=== PATIENT | female | born 1960 | race Caucasian/White ===

== ENCOUNTER 2017-06-02 11:04 | Emergency (ER) | payer SELFPAY ==
[2017-06-02 11:52] LABS: #Eosinphils 0.2 thou/uL (0.0-0.7); #Lymphocytes 1.8 thou/uL (1.20-3.40); #Monocytes 0.5 thou/uL (0.11-0.59); #Neutrophils 2.7 thou/uL (1.40-6.50); %Basophils 0.8 % (0.0-1.0); %Eosinophils 3.5 % (0.0-10.0); %Neutrophils 51.7 % (42.0-75.0); Hemoglobin 13.4 g/dL (12.0-16.0); Mean Corpuscular HGB CONC 35.5 g/dL (32.0-36.0); Mean Corpuscular Volume 90.3 fl (81.0-99.0); Mean Platelet Volume 7.5 fL (7.4-10.4); Platelet Count 242 thou/uL (130-400); RBC Distribution Width 11.3 % (11.5-14.5); Red Blood Cell (RBC) Count 4.18 mill/uL (4.20-5.40); White Blood Cell (WBC) Count 5.3 thou/uL (4.8-10.8)
[2017-06-02 12:07] LABS: ALT (SGPT) 33 U/L (8-55); AST (SGOT) 42 U/L (5-34); Alkaline Phosphatase 148 U/L (40-150); Anion Gap 12 mmol/L (10-20); BUN (Urea Nitrogen) 19 mg/dL (9.8-20.1); Bilirubin, Total 0.3 mg/dL (0.2-1.2); CK (CPK) 47 U/L (29-168); Calc. Creatinine Clearance 0 mL/min (70-130); Carbon Dioxide 26 mmol/L (22-29); Chloride 105 mmol/L (98-107); Estimated GFR-MDRD 55; Globulin 3.1 g/dL (2.4-3.5); Glucose 112 mg/dL (70-105); Potassium 4.1 mmol/L (3.5-5.1); Protein, Total 7.1 g/dL (6.0-8.3); Sodium 139 mmol/L (136-145)
[2017-06-02 12:11] LABS: CKMB 0.5 ng/mL (0-6.6); Troponin I Less than 0.010 ng/mL (< 0.028)
--- NOTE | 2017-06-02 12:33 | CT ---
CT HEAD NONCONTRAST: HISTORY: Falls. Weakness. Altered mental status. COMPARISON: 02/23/17. FINDINGS: There is no evidence of acute intracranial hemorrhage or infarct. The ventricles appear normal in si ze, shape, and position. There is no mass effect or shift of midline structures. Visualized paranas al sinuses remain well aerated. IMPRESSION: No acute intracranial abnormalities are demonstrated on noncontrast CT head. POS: [facility]
--- NOTE | 2017-06-02 12:42 | RAD ---
SINGLE VIEW OF THE CHEST: COMPARISON: 10/13/16. HISTORY: Multiple falls with chest pain and weakness. FINDINGS: Single view of the chest shows a normal sized cardiomediastinal silhouette. There is no evidence of c onsolidation, mass, or pleural effusion. The bones are unremarkable. IMPRESSION: No evidence of acute cardiopulmonary disease. POS: [facility]
[2017-06-02 14:02] LABS: Bilirubin Negative (Negative); Blood, Urine Negative (Negative); Clarity CLEAR (Clear); Glucose, Urine (Dipstick) Negative (Negative); Leukocyte Trace (Negative); Nitrite Negative (Negative); Protein, Urine (Dipstick) Negative (Neg-Trace); Specific Gravity, Urine 1.013 (1.002-1.036); Urobilinogen 0.2 mg/dL (0.2-1.0)
[2017-06-02 14:04] LABS: Bacteria/HPF None Seen HPF (None Seen); Hyaline Casts/LPF 0-3 HYALINE CAST LPF (0-3 Hyaline); Pathc Cast-AUWi Flag 0.27 (0-2.49); Squamous Epithelial 0-3 HPF (0-3); WBC/HPF 0-3 HPF (0-3)
[2017-06-02 14:12] LABS: Amphetamine Not Detected (NotDetected); Barbiturates Screen Not Detected (NotDetected); Benzodiazepine Screen Detected (NotDetected); Cocaine Metabolite Screen Not Detected (NotDetected); Medtox Control Line Valid? VALID (VALID); Medtox Reader # READER 1; Methadone Not Detected (NotDetected); Methamphetamine Not Detected (NotDetected); Opiate Screen Not Detected (NotDetected); Oxycodone Screen Not Detected (NotDetected); Phencyclidine (PCP) Not Detected (NotDetected); THC/Cannabinoid Screen Not Detected (NotDetected); Tricyclic Screen Not Detected (NotDetected)
[2017-06-02] MEDS ORDERED: Ketorolac Tromethamine 30 MG/ML VIAL ONE (15:18)
--- NOTE | 2017-06-08 18:04 | EKG ---
Test Reason : Blood Pressure : / mmHG Vent. Rate : 063 BPM Atrial Rate : 063 BPM P-R Int : 142 ms QRS Dur : 086 ms QT Int : 444 ms P-R-T Axes : 039 057 035 degrees QTc Int : 454 ms Normal sinus rhythm Nonspecific T wave abnormality Abnormal ECG Confirmed by MARCIA WORKMAN, ALBA ([id number]), newspaper photo editor SHARAD RODRIGEZ ([id number]) on 06/08/2017 6:03:33 PM Referred By: Confirmed By:ALBA KENNEDY MD
== END 2017-06-02 15:33 | disposition home or self-care (01) ==
LOC: ERS 11:04
DX: M54.5 Low back pain (principal); G89.29 Other chronic pain; M41.9 Scoliosis, unspecified; F41.9 Anxiety disorder, unspecified; F32.9 Major depressive disorder, single episode, unspecified; F20.9 Schizophrenia, unspecified
CPT/HCPCS: 70450; 71045; 80053; 80306; 81003; 81015; 82553; 84484; 85025; 93005; 94760; 96374; J1885

== ENCOUNTER 2017-11-07 14:31 | Emergency (ER) | payer SELFPAY ==
[2017-11-07 15:06] LABS: #Basophils 0.1 thou/uL (0.0-0.2); #Eosinphils 0.2 thou/uL (0.0-0.7); #Lymphocytes 2.5 thou/uL (1.20-3.40); #Monocytes 0.6 thou/uL (0.11-0.59); #Neutrophils 3.2 thou/uL (1.40-6.50); %Eosinophils 2.7 % (0.0-10.0); %Lymphocytes 37.7 % (21.0-51.0); %Monocytes 9.5 % (0.0-10.0); %Neutrophils 49.1 % (42.0-75.0); Hemoglobin 13.7 g/dL (12.0-16.0); Mean Corpuscular HGB CONC 35.6 g/dL (32.0-36.0); Mean Corpuscular Hemoglobin 31.5 pg (27.0-31.0); Mean Corpuscular Volume 88.6 fL (78.0-98.0); Mean Platelet Volume 6.8 fL (7.4-10.4); Platelet Count 261 thou/uL (130-400); RBC Distribution Width 11.7 % (11.5-14.5); Red Blood Cell (RBC) Count 4.34 mill/uL (4.20-5.40); White Blood Cell (WBC) Count 6.6 thou/uL (4.8-10.8)
[2017-11-07] MEDS ORDERED: Nitroglycerin 0.4 MG TAB (25 Tab Bottle) ONE (15:24)
[2017-11-07 15:27] LABS: ALT (SGPT) 31 U/L (8-55); AST (SGOT) 36 U/L (5-34); Albumin 4.5 g/dL (3.5-5.0); Alkaline Phosphatase 149 U/L (40-150); Anion Gap 12 mmol/L (10-20); BUN (Urea Nitrogen) 14 mg/dL (9.8-20.1); Bilirubin, Total 0.3 mg/dL (0.2-1.2); CK (CPK) 70 U/L (29-168); Calc. Creatinine Clearance 0 mL/min (70-130); Calcium 9.9 mg/dL (7.8-10.44); Carbon Dioxide 27 mmol/L (22-29); Chloride 102 mmol/L (98-107); Estimated GFR-MDRD 56; Globulin 2.9 g/dL (2.4-3.5); Glucose 89 mg/dL (70-105); Lipase 60 U/L (8-78); Protein, Total 7.4 g/dL (6.0-8.3); Sodium 137 mmol/L (136-145)
--- NOTE | 2017-11-07 15:31 | RAD ---
CHEST ONE VIEW: History: Chest pain. Comparison: 06-02-17 FINDINGS: Lungs are clear. No pneumothorax or effusion. Cardiac silhouette and mediastinal contours are within normal limits. IMPRESSION: No acute intrathoracic abnormality. POS: [facility]
[2017-11-07] MEDS ORDERED: Lorazepam 2 MG/ML VIAL ONE (15:52)
[2017-11-07 17:18] LABS: CKMB 0.7 ng/mL (0-6.6); Troponin I Less than 0.010 ng/mL (< 0.028)
[2017-11-07] MEDS ORDERED: Fentanyl 100 MCG/2 ML VIAL ONE (17:27)
[2017-11-07 19:57] LABS: Troponin I Less than 0.010 ng/mL (< 0.028)
[2017-11-07] MEDS ORDERED: Ketorolac Tromethamine 30 MG/ML VIAL ONE (20:12)
--- NOTE | 2017-11-09 11:57 | EKG ---
Test Reason : Blood Pressure : / mmHG Vent. Rate : 068 BPM Atrial Rate : 068 BPM P-R Int : 134 ms QRS Dur : 086 ms QT Int : 436 ms P-R-T Axes : 004 042 015 degrees QTc Int : 463 ms Normal sinus rhythm Septal infarct , age undetermined Abnormal ECG Confirmed by PEDRO PAULSON ([id number]), editor magazine OLIVIA COSTA ([id number]) on 11/09/2017 11:57:21 AM Referred By: Confirmed By:PEDRO PAULSON
== END 2017-11-07 20:18 | disposition home or self-care (01) ==
LOC: ERS 14:31
DX: R07.89 Other chest pain (principal); R51 Headache; F41.9 Anxiety disorder, unspecified; F32.9 Major depressive disorder, single episode, unspecified; Z79.899 Other long term (current) drug therapy
CPT/HCPCS: 36415; 71045; 80053; 82550; 82553; 83690; 83880; 84484; 85025; 93005; 96361; 96374; 96375; J1885; J2060; J3010

== ENCOUNTER 2017-12-10 10:17 | Inpatient (IN) | payer SELFPAY ==
[2017-12-10 10:58] LABS: #Lymphocytes 1.3 thou/uL (1.20-3.40); #Monocytes 0.9 thou/uL (0.11-0.59); #Neutrophils 8.7 thou/uL (1.40-6.50); %Basophils 0.1 % (0.0-1.0); %Lymphocytes 11.9 % (21.0-51.0); %Monocytes 8.3 % (0.0-10.0); %Neutrophils 79.7 % (42.0-75.0); Hemoglobin 12.3 g/dL (12.0-16.0); Mean Corpuscular HGB CONC 35.8 g/dL (32.0-36.0); Mean Corpuscular Hemoglobin 30.8 pg (27.0-31.0); Mean Platelet Volume 6.3 fL (7.4-10.4); Platelet Count 350 thou/uL (130-400); RBC Distribution Width 11.4 % (11.5-14.5); Red Blood Cell (RBC) Count 3.99 mill/uL (4.20-5.40); White Blood Cell (WBC) Count 10.9 thou/uL (4.8-10.8)
--- NOTE | 2017-12-10 11:14 | RAD ---
PORTABLE CHEST 1 VIEW: Date: 12/10/17 Time: 1010 hours HISTORY: Chest pain. FINDINGS: Comparison made with exam of 11/07/17. The heart size is normal. The lungs are expanded without focal areas of consolidation, pneumothoraces , or pleural effusions. IMPRESSION: No radiographic evidence of acute cardiopulmonary process. POS: [facility]
[2017-12-10 11:20] LABS: ALT (SGPT) 21 U/L (8-55); AST (SGOT) 29 U/L (5-34); Albumin 4.4 g/dL (3.5-5.0); Alkaline Phosphatase 116 U/L (40-150); Anion Gap 18 mmol/L (10-20); BUN (Urea Nitrogen) 10 mg/dL (9.8-20.1); Bilirubin, Total 0.8 mg/dL (0.2-1.2); CK (CPK) 531 U/L (29-168); Calc. Creatinine Clearance 0 mL/min (70-130); Calcium 9.2 mg/dL (7.8-10.44); Carbon Dioxide 17 mmol/L (22-29); Chloride 84 mmol/L (98-107); Estimated GFR-MDRD 82; Globulin 2.7 g/dL (2.4-3.5); Glucose 130 mg/dL (70-105); Lipase 28 U/L (8-78); Potassium 3.7 mmol/L (3.5-5.1); Protein, Total 7.1 g/dL (6.0-8.3)
[2017-12-10 11:28] LABS: CKMB 9.9 ng/mL (0-6.6); Sodium 115 mmol/L (136-145)
[2017-12-10 11:50] LABS: Troponin I 0.014 ng/mL (< 0.028)
[2017-12-10] MEDS ORDERED: Guaifenesin DM 100-10/5 ML UDCUP PO PRN (14:29)
[2017-12-10] MEDS ORDERED: Sodium Chloride 0.9% 1,000 ML IV SCH (14:29)
[2017-12-10 14:30] LABS: Osmolality, Serum 238 mOsm/kg (280-295)
[2017-12-10 15:26] LABS: Troponin I 0.041 ng/mL (< 0.028)
[2017-12-10 16:03] LABS: Anion Gap 21 mmol/L (10-20); BUN (Urea Nitrogen) 10 mg/dL (9.8-20.1); Calc. Creatinine Clearance 0 mL/min (70-130); Calcium 9.5 mg/dL (7.8-10.44); Carbon Dioxide 16 mmol/L (22-29); Chloride 85 mmol/L (98-107); Estimated GFR-MDRD 79; Glucose 130 mg/dL (70-105); Magnesium 1.4 mg/dL (1.6-2.6); Potassium 3.7 mmol/L (3.5-5.1)
[2017-12-10 16:35] LABS: Sodium 118 mmol/L (136-145)
[2017-12-10 17:25] VITALS: BMI 27.2
[2017-12-10 18:30] LABS: Troponin I 0.037 ng/mL (< 0.028)
[2017-12-10 18:32] LABS: Anion Gap 19 mmol/L (10-20); BUN (Urea Nitrogen) 11 mg/dL (9.8-20.1); Calc. Creatinine Clearance 75 mL/min (70-130); Calcium 9.6 mg/dL (7.8-10.44); Carbon Dioxide 18 mmol/L (22-29); Chloride 86 mmol/L (98-107); Estimated GFR-MDRD 75; Glucose 120 mg/dL (70-105); Potassium 3.8 mmol/L (3.5-5.1)
[2017-12-10 18:39] LABS: Sodium 119 mmol/L (136-145)
--- NOTE | 2017-12-10 18:47 | HP ---
REASON FOR ADMISSION: Hyponatremia. HISTORY OF PRESENT ILLNESS: The patient gives history of going to the emergency room on Saturday for complaints of chest pain and likely bronchitis. She was given a shot of steroids, after which patient went home and was not herself. This was corroborated by her who is at bedside. She was not sleeping well and was waking up every hour and pacing around. She also started to feel jittery and shaky. They thought this will get better, but as this got worse and worse, the patient was brought to the emergency room. She also complains of having watery diarrhea 4-5 times a day from the last 2 days. Patient also mentions that she has been drinking a lot of water nearly 3 liters of water at home. She has loss of appetite and is not eating solid food, but just drinking water. She has felt nauseous, but has not thrown up. She also has generalized body aches. Here in the ER, she is jittery and trying to pace herself on the bed. The patient states she has not overdosed on any medication. She feels stressed out. She was in fact hospitalized on 3 or 4 occasions before for severe depression per patient. The patient is also cutting down on clonazepam and is currently on 1 mg twice a day. PAST MEDICAL AND SURGICAL HISTORY: History of depression, questionable seizures likely due to clonazepam withdrawal, history of scoliosis, hysterectomy , appendectomy, prior hospitalization for depression, peripheral neuropathy. CURRENT MEDICATIONS: The patient is on citalopram 40 mg daily, clonazepam 1 mg twice daily, gabapentin 600 mg twice daily. ALLERGIES: No known drug allergies. PERSONAL HISTORY: Does not abuse alcohol or drugs. No history of smoking. FAMILY HISTORY: Mother at the age of 76 years. She has had history of breast cancer. Father at the age of 83 years. He has had history of coronary artery disease. CODE STATUS: FULL. Power of admitted attorneys is her . REVIEW OF SYSTEMS: The following complete review of systems was negative, unless otherwise mentioned in the HPI or below: Constitutional: Weight loss or gain, ability to conduct usual activities. Skin: Rash, itching. Eyes: Double vision, pain. ENT/Mouth: Nose bleeding, neck stiffness, pain, tenderness. Cardiovascular: Palpitations, dyspnea on exertion, orthopnea. Respiratory: Shortness of breath, wheezing, cough, hemoptysis, fever or night sweats. Gastrointestinal: Poor appetite, abdominal pain, heartburn, nausea, vomiting, constipation, or diarrhea. Genitourinary: Urgency, frequency, dysuria, nocturia. Musculoskeletal: Pain, swelling. Neurologic/Psychiatric: Anxiety, depression. Allergy/Immunologic: Skin rash, bleeding tendency. PHYSICAL EXAMINATION: GENERAL: The patient is a 57-year-old female who is currently jittery and pacing. She responds well to verbal questions. VITAL SIGNS: Blood pressure 160/74, pulse 80 per minute, respiratory rate 18 per minute, temperature 98.4 degrees Fahrenheit, saturating 100% on room air. NECK: Supple, no elevated JVD. HEENT: Extraocular muscles intact. Pupils reacting to light. There is chemosis plus. Oral cavity mucous membranes are dry. No exudates or congestion. CARDIOVASCULAR SYSTEM: S1, S2 heard. Regular rhythm. RESPIRATORY SYSTEM: Air entry 2+ bilateral. No rales or rhonchi. ABDOMEN: Soft, bowel sounds heard. No tenderness, rigidity or guarding. EXTREMITIES: No peripheral edema or calf tenderness. VASCULAR SYSTEM: Peripheral pulses 1+ bilateral, no ischemic ulcerations or gangrene. CENTRAL NERVOUS SYSTEM: No gross focal deficits noted. The patient is jittery and shaking. The patient likely has some mild extrapyramidal symptoms including non-purposeful movement of upper and lower extremities at times. PSYCHIATRIC SYSTEM: No obvious hallucinations or delusions. She is responding well to verbal questions. LABORATORY AND X-RAY FINDINGS: EKG done shows normal sinus rhythm at 77 beats per minute. White count of 10, H&H 12 and 34, platelet count is 350, MCV is 86 with 76% neutrophils. Sodium 115, serum bicarbonate 17, BUN 10, creatinine 0.7 , serum glucose 130, serum osmolality is 238. Uric acid is less than 2, calcium 9.2. Liver enzymes within normal limits. CK level 531. CK-MB 9.9, troponin I first set is 0.014, second set is 0.04, albumin is 4.4, lipase is 28. Serum stat cortisol levels are 38.4. Chest x-ray done shows no acute cardiopulmonary abnormalities. CLINICAL IMPRESSION AND PLAN: The patient will be admitted to [facility] for severe hyponatremia with neurologic symptoms at present. We will continue her clonazepam as before to avoid withdrawal seizures. She will be on normal saline at 70 mL per hour. We will await urine osmolality and stat TSH levels as well. She has got mild rhabdomyolysis, likely due to pacing around. I have consulted Dr. Kerr for Nephrology as well. Patient has mild demand ischemia due to her current severe hyponatremia. Based on further workup, the patient likely will need 3% sodium chloride and we will continue to closely monitor her with slow correction up to 8 mEq/day. It is unclear if patient has underlying psychiatric issue that is causing current symptoms with mild extrapyramidal symptoms. She is not sure if she is taking trazodone, but for sure she is taking citalopram. Patient is not suicidal or homicidal at present. She says she is stressed out and is depressed as well at present. RODRIGO
[2017-12-10] MEDS ORDERED: Magnesium Sulfate 1 GM/2 ML VIAL IM SCH (19:30)
[2017-12-10 20:10] LABS: Free T4 (Free Thyroxine) 1.52 ng/dL (0.70-1.48)
[2017-12-10] MEDS: clonazePAM 1 MG TAB PO SCH (20:20)
[2017-12-10] MEDS: Famotidine 20 MG TAB PO SCH (20:20)
--- NOTE | 2017-12-10 20:56 | CON ---
DATE OF CONSULTATION: 12/10/2017 TIME OF CONSULTATION: 02:00 p.m. REASON FOR CONSULTATION: Hyponatremia. HISTORY OF PRESENT ILLNESS: This is a 57-year-old female with a history of psychiatric disorder, who presented to the hospital and was noted to have hyponatremia. The patient has had some shaking for the last couple of days. The patient is taking long-term clonazepam and has had diarrhea. The patie nt denies headache, numbness, tingling or weakness. The patient's sodium at 11:00 a.m. was 115, whic h itself increased at the time of examination to 118. The patient denies headache, syncope or seizur e. PAST MEDICAL HISTORY: Significant for hypertension, seizure, clonazepam withdrawal, scoliosis, hyste rectomy, appendectomy, hospitalization, peripheral neuropathy. HOME MEDICATIONS: List reviewed. HOSPITAL MEDICATIONS: Reviewed. ALLERGIES: Reviewed. REVIEW OF SYSTEMS: A 15-point review of systems was performed and negative except positives noted ab ove. PHYSICAL EXAMINATION: GENERAL: The patient is awake and alert. VITAL SIGNS: Afebrile, pulse 75, breathing at 16, blood pressure 160/74. GENERAL APPEARANCE AND MENTAL STATUS: Fair. HEAD/NECK: Normocephalic. Atraumatic. EYES: EOMI. No deformity. EARS: Clear. No ulcers. NOSE: Intact. No lesions. MOUTH: Clear. No discharge. THROAT: Clear. No exudate. LUNGS: Clear. No crackles. CARDIAC: S1, S2. No rub. ABDOMEN: Benign. BS+. GENITALIA/RECTUM: Almeida absent. BACK/EXTREMITIES: Edema 0+ Ulcer-. NEUROLOGICAL: Alert and motor intact. SKIN: Rash- Bruise-. LYMPHATICS: Edema- Ulcer-. LABORATORY DATA: Sodium 119, serum osmolality 238. Third generation TSH is 0.19. Bicarbonate is 18 . ASSESSMENT AND RECOMMENDATIONS: 1. Hyponatremia acute with excessive fluid intake. I will not correct the sodium more than 10 mEq. The patient has chronic shaking disorder and there is conflicting history per . If the sodiu m does not improve, then we will consider hypertonic saline. 2. Hypokalemia, stable. 3. Metabolic acidosis. I would recommend a blood gas be obtained. Overall, prognosis is poor.
[2017-12-10 21:08] LABS: Bilirubin Negative (Negative); Blood, Urine Negative (Negative); Clarity CLEAR (Clear); Glucose, Urine (Dipstick) Negative (Negative); Leukocyte Trace (Negative); Nitrite Negative (Negative); Protein, Urine (Dipstick) Trace mg/dL (Neg-Trace); Urobilinogen 0.2 mg/dL (0.2-1.0); pH, Urine 6.5 (5.0-9.0)
[2017-12-10 21:09] LABS: Bacteria/HPF None Seen HPF (None Seen); Hyaline Casts/LPF 0-3 HYALINE CAST LPF (0-3 Hyaline); Pathc Cast-AUWi Flag 0.43 (0-2.49); RBC/HPF 0-3 HPF (0-3)
[2017-12-10 22:20] LABS: Anion Gap 17 mmol/L (10-20); BUN (Urea Nitrogen) 11 mg/dL (9.8-20.1); Calc. Creatinine Clearance 82 mL/min (70-130); Calcium 8.9 mg/dL (7.8-10.44); Carbon Dioxide 18 mmol/L (22-29); Chloride 89 mmol/L (98-107); Estimated GFR-MDRD 83; Glucose 107 mg/dL (70-105); Potassium 3.6 mmol/L (3.5-5.1); Sodium 120 mmol/L (136-145)
[2017-12-10] MEDS ORDERED: traMADol HCl 50 MG TAB PO SCH (22:30)
[2017-12-10 22:43] LABS: Creatinine, Urine 55.66 mg/dL (47-110)
[2017-12-11 04:53] LABS: Chloride 92 mmol/L (98-107); Potassium 3.5 mmol/L (3.5-5.1); Sodium 124 mmol/L (136-145)
[2017-12-11 04:54] LABS: Calcium 9.4 mg/dL (7.8-10.44); Glucose 98 mg/dL (70-105)
[2017-12-11 04:56] LABS: Anion Gap 16 mmol/L (10-20); Carbon Dioxide 20 mmol/L (22-29)
[2017-12-11 04:57] LABS: Calc. Creatinine Clearance 75 mL/min (70-130); Estimated GFR-MDRD 75
[2017-12-11 04:58] LABS: BUN (Urea Nitrogen) 11 mg/dL (9.8-20.1)
[2017-12-11 05:00] LABS: CK (CPK) 495 U/L (29-168)
[2017-12-11 05:02] LABS: Lymphocytes 15 % (21-51); MDiff Complete? YES; Mean Corpuscular HGB CONC 36.8 g/dL (32.0-36.0); Mean Corpuscular Volume 86.9 fL (78.0-98.0); Mean Platelet Volume 6.3 fL (7.4-10.4); Monocytes 12 % (0-10); Neutrophil 69 % (42-75); PLT Morphology Comment Appears Adequate; Platelet Count 351 thou/uL (130-400); RBC Distribution Width 11.5 % (11.5-14.5); RBC Morphology Normal; Reactive Lymphocytes 4 % (0-10); Red Blood Cell (RBC) Count 4.36 mill/uL (4.20-5.40); White Blood Cell (WBC) Count 8.2 thou/uL (4.8-10.8)
[2017-12-11] MEDS: traMADol HCl 50 MG TAB PO PRN ×3 (05:43→17:42)
[2017-12-11 07:17] LABS: Anion Gap 13 mmol/L (10-20); BUN (Urea Nitrogen) 11 mg/dL (9.8-20.1); Calc. Creatinine Clearance 78 mL/min (70-130); Calcium 9.6 mg/dL (7.8-10.44); Carbon Dioxide 22 mmol/L (22-29); Chloride 93 mmol/L (98-107); Estimated GFR-MDRD 78; Glucose 98 mg/dL (70-105); Potassium 3.7 mmol/L (3.5-5.1); Sodium 124 mmol/L (136-145)
[2017-12-11] MEDS: Famotidine 20 MG TAB PO SCH ×2 (09:36→20:23)
[2017-12-11] MEDS: clonazePAM 1 MG TAB PO SCH ×2 (09:36→20:23)
[2017-12-11] MEDS: Enoxaparin Sodium 40 MG/0.4 ML SYRINGE SC SCH (09:37)
--- NOTE | 2017-12-11 09:47 | PRG ---
DATE OF SERVICE: 12/11/2017 SUBJECTIVE: This is a 57-year-old female being seen for hyponatremia. The patient denies any nausea , vomiting, or chest pain. PHYSICAL EXAMINATION: GENERAL: Patient is awake, alert. VITAL SIGNS: Afebrile, pulse 68, breathing at 16, blood pressure 138/71. GENERAL APPEARANCE AND MENTAL STATUS: Fair. HEAD/NECK: Normocephalic. Atraumatic. EYES: EOMI. No deformity. EARS: Clear. No ulcers. NOSE: Intact. No lesions. MOUTH: Clear. No discharge. THROAT: Clear. No exudate. LUNGS: Clear. No crackles. CARDIAC: S1, S2. No rub. ABDOMEN: Benign. BS+. GENITALIA/RECTUM: Almeida absent. BACK/EXTREMITIES: Edema 0+ Ulcer-. NEUROLOGICAL: Alert and motor intact. SKIN: Rash- Bruise- LYMPHATICS: Edema- Ulcer-. LABORATORY DATA: Show hemoglobin 14, sodium 124, creatinine 0.79. ASSESSMENT AND RECOMMENDATIONS: 1. Acute hyponatremia with psychogenic polydipsia, improving, gradually 24 hours. 2. Hypertension, stable. 3. Mild metabolic acidosis, improved. No indication for hypertonic saline or fluid restriction at t his time. We will let this sodium to gradually correct itself.
[2017-12-11 09:59] LABS: Anion Gap 16 mmol/L (10-20); BUN (Urea Nitrogen) 15 mg/dL (9.8-20.1); Calc. Creatinine Clearance 69 mL/min (70-130); Calcium 9.6 mg/dL (7.8-10.44); Carbon Dioxide 20 mmol/L (22-29); Chloride 93 mmol/L (98-107); Estimated GFR-MDRD 68; Glucose 106 mg/dL (70-105); Potassium 3.6 mmol/L (3.5-5.1); Sodium 125 mmol/L (136-145)
--- NOTE | 2017-12-11 15:17 | EKG ---
Test Reason : Blood Pressure : / mmHG Vent. Rate : 077 BPM Atrial Rate : 077 BPM P-R Int : 114 ms QRS Dur : 092 ms QT Int : 438 ms P-R-T Axes : 064 069 056 degrees QTc Int : 495 ms Normal sinus rhythm Nonspecific ST-T changes Possible Lateral infarct , age undetermined Abnormal ECG Confirmed by PARVEEN TOBAR DO ([id number]), photography editor SHARAD RODRIGEZ ([id number]) on 12/11/2017 3:17:09 PM Referred By: Confirmed By:PARVEEN TOBAR DO
--- NOTE | 2017-12-11 15:32 | PDOC.PN ---
- Subjective Encounter Start Date: 12/11/17 Encounter Start Time: 13:00 Subjective: is calm and rested this morning, no jitteriness or flailing arms all over -: no sob, c/o gen body aches -: is oriented well, responds well to verbal questions - Objective Resuscitation Status: Resuscitation Status FULL:Full Resuscitation MAR Reviewed: Yes Vital Signs & Weight: Vital Signs (12 hours) Temp Pulse Pulse Pulse Resp BP BP 12/11/17 15:19 97.0 F L 83 16 12/11/17 11:13 97.3 F L 82 16 12/11/17 08:59 74 77 149/84 H 141/71 H 12/11/17 07:32 99.0 F 76 18 12/11/17 07:19 99.0 F 76 18 12/11/17 04:00 98.9 F 68 18 BP Pulse Ox Pulse Ox Pulse Ox 12/11/17 15:19 122/71 95 12/11/17 11:13 121/69 96 12/11/17 08:59 97 95 12/11/17 07:32 99 12/11/17 07:19 148/80 H 96 12/11/17 04:00 138/71 99 Weight Weight 134 lb 9.6 oz I&O: 12/10/17 12/11/17 12/12/17 06:59 06:59 06:59 Intake Total 160 Output Total 725 Balance -565 Result Diagrams: 12/11/17 03:50 12/11/17 09:31 Phys Exam - Physical Examination HEENT: PERRLA, moist MMs Neck: no JVD, supple Respiratory: no wheezing, no rales Cardiovascular: RRR, no significant murmur Gastrointestinal: soft, non-tender, positive bowel sounds Musculoskeletal: no edema, pulses present Neurological: non-focal, moves all 4 limbs Psychiatric: normal affect, A&O x 3 Dx/Plan (1) Hyponatremia Code(s): E87.1 - HYPO-OSMOLALITY AND HYPONATREMIA Status: Acute (2) Anxiety and depression Code(s): F41.9 - ANXIETY DISORDER, UNSPECIFIED; F32.9 - MAJOR DEPRESSIVE DISORDER, SINGLE EPISODE, UNSPECIFIED Status: Chronic (3) Rhabdomyolysis Code(s): M62.82 - RHABDOMYOLYSIS Status: Resolved - Plan sodium is slowly coming up, had good correction overnight -: her extrapyramidal symptoms including pacing and flailing of arms have reso -: -sara now. -: may tx to medical floor, continue gabapentin -: hemo/neurostable * . Review of Systems - Medications/Allergies Allergies/Adverse Reactions: Allergies Allergy/AdvReac Type Severity Reaction Status Date / Time No Known Drug Allergies Allergy Verified 08/30/16 20:31 Medications: Current Medications Acetaminophen (Tylenol) 650 mg PO Q4H PRN PRN Reason: Headache/Fever or Pain Clonazepam (Klonopin) 1 mg PO BID [facility] Last Admin: 12/11/17 09:36 Dose: 1 mg Enoxaparin Sodium (Lovenox) 40 mg SC 0900 [facility] Last Admin: 12/11/17 09:37 Dose: 40 mg Famotidine (Pepcid) 20 mg PO BID [facility] Last Admin: 12/11/17 09:36 Dose: 20 mg Guaifenesin/Dextromethorphan (Robitussin Dm) 15 ml PO Q4H PRN PRN Reason: Cough Sodium Chloride (Flush - Normal Saline) 10 ml IVF Q12HR [facility] Last Admin: 12/11/17 09:37 Dose: 10 ml Sodium Chloride (Flush - Normal Saline) 10 ml IVF PRN PRN PRN Reason: Saline Flush Tramadol HCl (Ultram) 50 mg PO Q6H PRN PRN Reason: Pain Last Admin: 12/11/17 11:38 Dose: 50 mg
[2017-12-11 17:00] LABS: Anion Gap 13 mmol/L (10-20); BUN (Urea Nitrogen) 17 mg/dL (9.8-20.1); Calc. Creatinine Clearance 68 mL/min (70-130); Carbon Dioxide 21 mmol/L (22-29); Chloride 95 mmol/L (98-107); Estimated GFR-MDRD 67; Glucose 126 mg/dL (70-105); Potassium 3.9 mmol/L (3.5-5.1); Sodium 125 mmol/L (136-145)
[2017-12-11] MEDS: Gabapentin 300 MG CAP PO SCH (20:23)
[2017-12-12] MEDS: traMADol HCl 50 MG TAB PO PRN ×4 (00:40→22:25)
[2017-12-12] MEDS: Famotidine 20 MG TAB PO SCH ×2 (08:01→20:38)
[2017-12-12] MEDS: Gabapentin 300 MG CAP PO SCH ×2 (08:01→20:38)
[2017-12-12] MEDS: clonazePAM 1 MG TAB PO SCH ×2 (08:02→20:34)
[2017-12-12] MEDS: Enoxaparin Sodium 40 MG/0.4 ML SYRINGE SC SCH (08:03)
[2017-12-12] MEDS: Sodium Chloride 0.9% 1,000 ML IV SCH (08:09)
[2017-12-12 09:02] LABS: Anion Gap 15 mmol/L (10-20); BUN (Urea Nitrogen) 19 mg/dL (9.8-20.1); Calc. Creatinine Clearance 59 mL/min (70-130); Calcium 9.2 mg/dL (7.8-10.44); Carbon Dioxide 21 mmol/L (22-29); Chloride 98 mmol/L (98-107); Estimated GFR-MDRD 57; Glucose 122 mg/dL (70-105); Potassium 3.2 mmol/L (3.5-5.1); Sodium 131 mmol/L (136-145)
--- NOTE | 2017-12-12 10:58 | PDOC.PN ---
- Subjective Encounter Start Date: 12/12/17 Encounter Start Time: 09:15 Subjective: c/o pain in her legs and nowhere else -: needs a rolling walker to ambulate -: wants her trazadone to sleep - Objective Resuscitation Status: Resuscitation Status FULL:Full Resuscitation MAR Reviewed: Yes Vital Signs & Weight: Vital Signs (12 hours) Temp Pulse Resp BP BP Pulse Ox 12/12/17 08:00 98.2 F 79 16 12/12/17 07:19 98.2 F 79 16 122/81 95 12/12/17 03:11 98.5 F 87 12 116/70 96 Weight Weight 134 lb 9.6 oz I&O: 12/11/17 12/12/17 12/13/17 06:59 06:59 06:59 Intake Total 160 240 Output Total 725 Balance -565 240 Result Diagrams: 12/11/17 03:50 12/12/17 08:27 Phys Exam - Physical Examination HEENT: PERRLA, moist MMs Neck: no nodes, no JVD Respiratory: no wheezing, no rales Cardiovascular: RRR, no significant murmur Gastrointestinal: soft, non-tender, no distention, positive bowel sounds Musculoskeletal: no edema, pulses present Neurological: non-focal, moves all 4 limbs Psychiatric: normal affect, A&O x 3 Dx/Plan (1) Hyponatremia Code(s): E87.1 - HYPO-OSMOLALITY AND HYPONATREMIA Status: Acute (2) Anxiety and depression Code(s): F41.9 - ANXIETY DISORDER, UNSPECIFIED; F32.9 - MAJOR DEPRESSIVE DISORDER, SINGLE EPISODE, UNSPECIFIED Status: Chronic (3) Rhabdomyolysis Code(s): M62.82 - RHABDOMYOLYSIS Status: Resolved - Plan hemo/neuro stable -: sod is 125 this am -: to ambulate as tolerated -: dc plan in am if stable * . Review of Systems - Medications/Allergies Allergies/Adverse Reactions: Allergies Allergy/AdvReac Type Severity Reaction Status Date / Time No Known Drug Allergies Allergy Verified 08/30/16 20:31 Medications: Current Medications Acetaminophen (Tylenol) 650 mg PO Q4H PRN PRN Reason: Headache/Fever or Pain Clonazepam (Klonopin) 1 mg PO BID [facility] Last Admin: 12/12/17 08:02 Dose: 1 mg Enoxaparin Sodium (Lovenox) 40 mg SC 0900 [facility] Last Admin: 12/12/17 08:03 Dose: 40 mg Famotidine (Pepcid) 20 mg PO BID [facility] Last Admin: 12/12/17 08:01 Dose: 20 mg Gabapentin (Neurontin) 600 mg PO BID [facility] Last Admin: 12/12/17 08:01 Dose: 600 mg Guaifenesin/Dextromethorphan (Robitussin Dm) 15 ml PO Q4H PRN PRN Reason: Cough Sodium Chloride (Normal Saline 0.9%) 1,000 mls @ 50 mls/hr IV .Q20H [facility] Last Admin: 12/12/17 08:09 Dose: 1,000 mls Sodium Chloride (Flush - Normal Saline) 10 ml IVF Q12HR [facility] Last Admin: 12/12/17 08:09 Dose: 10 ml Sodium Chloride (Flush - Normal Saline) 10 ml IVF PRN PRN PRN Reason: Saline Flush Tramadol HCl (Ultram) 50 mg PO Q6H PRN PRN Reason: Pain Last Admin: 12/12/17 00:40 Dose: 50 mg
[2017-12-12] MEDS: Acetaminophen 325 MG TAB PO PRN ×2 (16:19→22:26)
[2017-12-12] MEDS ORDERED: traZODone HCl 150 MG TAB PO SCH (21:00)
--- NOTE | 2017-12-12 21:49 | PRG ---
DATE OF SERVICE: 12/12/2017 SUBJECTIVE: 57-year-old female being seen for hyponatremia. The patient denies any nausea, vomiting , or chest pain. OBJECTIVE: GENERAL: The patient is awake and alert. VITAL SIGNS: Pulse 80, breathing 16, blood pressure . GENERAL APPEARANCE AND MENTAL STATUS: Fair. HEAD/NECK: Normocephalic. Atraumatic. EYES: EOMI. No deformity. EARS: Clear. No ulcers. NOSE: Intact. No lesions. MOUTH: Clear. No discharge. THROAT: Clear. No exudate. LUNGS: Clear. No crackles. CARDIAC: S1, S2. No rub. ABDOMEN: Benign. BS+. GENITALIA/RECTUM: Almeida absent. BACK/EXTREMITIES: Edema 0+. Ulcer-. NEUROLOGICAL: Alert and motor intact. SKIN: Rash-. Bruise-. LYMPHATICS: Edema-. Ulcer-. LABORATORY DATA: Hemoglobin is 14. Sodium is 131, potassium is 3.2, creatinine 1. IMPRESSION: 1. Chronic kidney disease, stage 3, stable. 2. Hyponatremia, improved gradually, less than 24 hours. 3. Hypokalemia. Recommend potassium replacement. 4. Hypoosmolality, improved. I will sign off on this patient. Please reconsult as needed.
[2017-12-13] MEDS: Sodium Chloride 0.9% 1,000 ML IV SCH (03:43)
[2017-12-13] MEDS: Acetaminophen 325 MG TAB PO PRN ×2 (03:43→10:18)
[2017-12-13] MEDS: traMADol HCl 50 MG TAB PO PRN ×2 (06:06→12:03)
[2017-12-13 08:05] LABS: Anion Gap 11 mmol/L (10-20); BUN (Urea Nitrogen) 15 mg/dL (9.8-20.1); Calc. Creatinine Clearance 70 mL/min (70-130); Calcium 8.7 mg/dL (7.8-10.44); Carbon Dioxide 22 mmol/L (22-29); Chloride 105 mmol/L (98-107); Estimated GFR-MDRD 69; Glucose 63 mg/dL (70-105); Potassium 3.3 mmol/L (3.5-5.1); Sodium 135 mmol/L (136-145)
[2017-12-13] MEDS: Gabapentin 300 MG CAP PO SCH (08:05)
[2017-12-13] MEDS: Enoxaparin Sodium 40 MG/0.4 ML SYRINGE SC SCH (08:05)
[2017-12-13] MEDS: Famotidine 20 MG TAB PO SCH (08:06)
[2017-12-13] MEDS: clonazePAM 1 MG TAB PO SCH (08:06)
[2017-12-13] MEDS ORDERED: Citalopram 20 MG TAB PO SCH (09:00)
--- NOTE | 2017-12-13 10:48 | PDOC.PN ---
- Subjective Encounter Start Date: 12/13/17 Encounter Start Time: 08:15 Subjective: feels good, no sob -: is ambulating in hallway, mild pain in legs both, no swelling or erythema - Objective Resuscitation Status: Resuscitation Status FULL:Full Resuscitation MAR Reviewed: Yes Vital Signs & Weight: Vital Signs (12 hours) Temp Pulse Resp BP Pulse Ox 12/13/17 08:00 97.7 F 82 16 12/13/17 06:58 97.7 F 82 16 117/75 97 Weight Weight 134 lb 9.6 oz I&O: 12/12/17 12/13/17 12/14/17 06:59 06:59 06:59 Intake Total 240 1400 Balance 240 1400 Result Diagrams: 12/11/17 03:50 12/13/17 07:39 Phys Exam - Physical Examination HEENT: PERRLA, moist MMs Neck: no JVD, supple Respiratory: no wheezing, no rales Cardiovascular: RRR, no significant murmur Gastrointestinal: soft, non-tender, positive bowel sounds Musculoskeletal: no edema, pulses present Neurological: non-focal, moves all 4 limbs Psychiatric: normal affect, A&O x 3 Dx/Plan (1) Hyponatremia Code(s): E87.1 - HYPO-OSMOLALITY AND HYPONATREMIA Status: Resolved (2) Anxiety and depression Code(s): F41.9 - ANXIETY DISORDER, UNSPECIFIED; F32.9 - MAJOR DEPRESSIVE DISORDER, SINGLE EPISODE, UNSPECIFIED Status: Chronic (3) Rhabdomyolysis Code(s): M62.82 - RHABDOMYOLYSIS Status: Resolved - Plan hemo/neurostable -: dc pt home * . Review of Systems - Medications/Allergies Allergies/Adverse Reactions: Allergies Allergy/AdvReac Type Severity Reaction Status Date / Time No Known Drug Allergies Allergy Verified 08/30/16 20:31 Medications: Current Medications Acetaminophen (Tylenol) 650 mg PO Q4H PRN PRN Reason: Headache/Fever or Pain Last Admin: 12/13/17 10:18 Dose: 650 mg Citalopram Hydrobromide (Celexa) 40 mg PO DAILY [facility] Last Admin: 12/13/17 08:06 Dose: 40 mg Clonazepam (Klonopin) 1 mg PO BID [facility] Last Admin: 12/13/17 08:06 Dose: 1 mg Enoxaparin Sodium (Lovenox) 40 mg SC 0900 [facility] Last Admin: 12/13/17 08:05 Dose: 40 mg Famotidine (Pepcid) 20 mg PO BID [facility] Last Admin: 12/13/17 08:06 Dose: 20 mg Gabapentin (Neurontin) 600 mg PO BID [facility] Last Admin: 12/13/17 08:05 Dose: 600 mg Guaifenesin/Dextromethorphan (Robitussin Dm) 15 ml PO Q4H PRN PRN Reason: Cough Sodium Chloride (Flush - Normal Saline) 10 ml IVF Q12HR [facility] Last Admin: 12/13/17 08:06 Dose: 10 ml Sodium Chloride (Flush - Normal Saline) 10 ml IVF PRN PRN PRN Reason: Saline Flush Tramadol HCl (Ultram) 50 mg PO Q6H PRN PRN Reason: Pain Last Admin: 12/13/17 06:06 Dose: 50 mg Trazodone HCl (Desyrel) 150 mg PO HS [facility] Last Admin: 12/12/17 20:34 Dose: 150 mg
[2017-12-13 12:13] VITALS: BP 138/76; TEMP 98.2
--- NOTE | 2017-12-13 19:46 | DIS ---
DATE OF ADMISSION: 12/10/2017 DATE OF DISCHARGE: 12/13/2017 DISCHARGE DISPOSITION: To home. PRIMARY DISCHARGE DIAGNOSIS: Severe hyponatremia with rhabdomyolysis, resolved. SECONDARY DISCHARGE DIAGNOSES: Anxiety, depression. PROCEDURES DONE DURING HOSPITALIZATION: Chest x-ray done showed no acute cardiopulmonary abnormalities. H and H 14 and 37, platelet count 351. Initial sodium was 115. discharge number of 135. Free T3 of 2.57, free T4 of 1.52. Cortisol was 16. Initial CK levels were 531. Serum osmolality was 238. Urine osmolality was 315. Urine sodium was 29. DISCHARGE MEDICATIONS: Citalopram 40 mg p.o. daily, clonazepam 2 mg twice daily , gabapentin 600 mg p.o. twice daily, trazodone 150 mg p.o. at bedtime. ALLERGIES: No known drug allergies. INPATIENT CONSULTS: Dr. Kerr for Nephrology. DISCHARGE PLAN: Patient to follow up with primary care physician in 1 week. BRIEF COURSE DURING HOSPITALIZATION: Patient initially got admitted with feeling of jitteriness, fidgeting and unable to sleep. She also had 4-5 episodes of watery diarrhea and was also drinking nearly 3 liters of free water. Her initial sodium was 115 and the patient was admitted to [facility] for severe hyponatremia with neurologic issues. The patient initially got a liter of IV fluid and was on fluid restriction thereafer. She has responded well. Her sodium is fully corrected. She has underlying psychiatric disorder for which she needs outpatient consultation with psychiatrist. The patient does not have insurance and is awaiting [facility] to help her out. She is otherwise hemodynamically and neurologically stable prior to discharge. She is ambulating and eating well prior to discharge and is fully oriented. Please note she was restarted on citalopram and trazadone from last 24hrs and has stable sodium levels. Please see a face to face documentation on [employer] for the day of discharge. PARISHD
== END 2017-12-13 13:03 | disposition home or self-care (01) | DRG 641 ==
LOC: ERS 10:17 → IMCU/EMU 15:35 → T4-A 12-11 19:46
PROVIDERS: ADMIT Internal Medicine; ATTEND Internal Medicine
DX: E87.1 Hypo-osmolality and hyponatremia (principal); M62.82 Rhabdomyolysis; I24.8 Other forms of acute ischemic heart disease; E87.2 Acidosis; E86.0 Dehydration; I12.9 Hypertensive chronic kidney disease with stage 1 through stage 4 chronic kidney disease, or unspecified chronic kidney disease; N18.3 Chronic kidney disease, stage 3 (moderate); E87.6 Hypokalemia; F32.9 Major depressive disorder, single episode, unspecified
CPT/HCPCS: 36415; 71045; 80048; 80053; 81001; 82533; 82550; 82553; 82570; 83690; 83735; 83880; 83930; 83935; 84300; 84439; 84443; 84481; 84484; 84550; 85025; 93005; A4216; G8978-GP-CL; G8979-GP-CJ; J1650; J3475; J7050

== ENCOUNTER 2017-12-29 18:41 | Emergency (ER) | payer SELFPAY ==
[2017-12-29] MEDS ORDERED: HYDROcodone/Acetaminophen 5/325 mg Tablet ONE (19:26)
[2017-12-29] MEDS ORDERED: Ketorolac Tromethamine 60 MG/2 ML VIAL ONE (19:31)
[2017-12-29 20:07] LABS: #Basophils 0.1 thou/uL (0.0-0.2); #Eosinphils 0.2 thou/uL (0.0-0.7); #Monocytes 0.8 thou/uL (0.11-0.59); #Neutrophils 4.2 thou/uL (1.40-6.50); %Basophils 1.2 % (0.0-1.0); %Eosinophils 3.1 % (0.0-10.0); %Lymphocytes 27.5 % (21.0-51.0); %Monocytes 10.7 % (0.0-10.0); %Neutrophils 57.6 % (42.0-75.0); Mean Corpuscular Hemoglobin 32.5 pg (27.0-31.0); Mean Corpuscular Volume 90.3 fL (78.0-98.0); Mean Platelet Volume 6.5 fL (7.4-10.4); Platelet Count 328 thou/uL (130-400); RBC Distribution Width 11.5 % (11.5-14.5); Red Blood Cell (RBC) Count 3.69 mill/uL (4.20-5.40); White Blood Cell (WBC) Count 7.3 thou/uL (4.8-10.8)
[2017-12-29 20:27] LABS: ALT (SGPT) 23 U/L (8-55); AST (SGOT) 24 U/L (5-34); Albumin 4.3 g/dL (3.5-5.0); Alkaline Phosphatase 122 U/L (40-150); Anion Gap 14 mmol/L (10-20); BUN (Urea Nitrogen) 13 mg/dL (9.8-20.1); Bilirubin, Total 0.2 mg/dL (0.2-1.2); CK (CPK) 73 U/L (29-168); Calc. Creatinine Clearance 0 mL/min (70-130); Calcium 9.5 mg/dL (7.8-10.44); Carbon Dioxide 24 mmol/L (22-29); Chloride 99 mmol/L (98-107); Estimated GFR-MDRD 45; Globulin 2.7 g/dL (2.4-3.5); Glucose 84 mg/dL (70-105); Potassium 4.4 mmol/L (3.5-5.1); Sodium 133 mmol/L (136-145)
[2017-12-29 20:30] LABS: CKMB 1.3 ng/mL (0-6.6); Troponin I Less than 0.010 ng/mL (< 0.028)
== END 2017-12-29 20:44 | disposition home or self-care (01) ==
LOC: ERS 18:41
DX: M54.32 Sciatica, left side (principal); E87.1 Hypo-osmolality and hyponatremia; F41.9 Anxiety disorder, unspecified; F32.9 Major depressive disorder, single episode, unspecified; F20.9 Schizophrenia, unspecified; Z79.899 Other long term (current) drug therapy
CPT/HCPCS: 36415; 80053; 82550; 82553; 84484; 85025; 93005; 96372; J1885

== ENCOUNTER 2018-01-09 12:47 | Observation (INO) | payer SELFPAY ==
[2018-01-09] MEDS ORDERED: Labetalol HCl 100 MG/20 ML VIAL ONE (12:56)
[2018-01-09 13:09] LABS: #Eosinphils 0.1 thou/uL (0.0-0.7); #Lymphocytes 1.5 thou/uL (1.20-3.40); #Monocytes 0.6 thou/uL (0.11-0.59); #Neutrophils 4.3 thou/uL (1.40-6.50); %Basophils 0.7 % (0.0-1.0); %Eosinophils 1.8 % (0.0-10.0); %Lymphocytes 22.8 % (21.0-51.0); %Neutrophils 65.7 % (42.0-75.0); Hemoglobin 13.4 g/dL (12.0-16.0); Mean Corpuscular HGB CONC 33.8 g/dL (32.0-36.0); Mean Corpuscular Hemoglobin 30.5 pg (27.0-31.0); Mean Corpuscular Volume 90.3 fL (78.0-98.0); Platelet Count 302 thou/uL (130-400); RBC Distribution Width 12.1 % (11.5-14.5); Red Blood Cell (RBC) Count 4.38 mill/uL (4.20-5.40); White Blood Cell (WBC) Count 6.5 thou/uL (4.8-10.8)
[2018-01-09 13:18] LABS: INR-International Normal Ratio 0.9; PTT 33.6 SEC (22.9-36.1); Prothrombin Time 12.5 SEC (12.0-14.7)
[2018-01-09 13:23] LABS: ALT (SGPT) 27 U/L (8-55); AST (SGOT) 29 U/L (5-34); Albumin 4.9 g/dL (3.5-5.0); Alkaline Phosphatase 112 U/L (40-150); Anion Gap 13 mmol/L (10-20); BUN (Urea Nitrogen) 12 mg/dL (9.8-20.1); Bilirubin, Total 0.3 mg/dL (0.2-1.2); CK (CPK) 74 U/L (29-168); Calc. Creatinine Clearance 0 mL/min (70-130); Carbon Dioxide 25 mmol/L (22-29); Chloride 96 mmol/L (98-107); Estimated GFR-MDRD 45; Globulin 3.1 g/dL (2.4-3.5); Glucose 104 mg/dL (70-105); Potassium 4.4 mmol/L (3.5-5.1); Sodium 130 mmol/L (136-145)
[2018-01-09 13:26] LABS: CKMB 0.9 ng/mL (0-6.6); Troponin I Less than 0.010 ng/mL (< 0.028)
--- NOTE | 2018-01-09 13:26 | CT ---
CT BRAIN: 01/09/2018 PROVIDED CLINICAL HISTORY: Left arm and leg numbness with speech changes. COMPARISON: 06/02/2017 FINDINGS: The ventricular system appears normal in size and morphology. There is no evidence for intracranial hemorrhage or mass effect. The extracranial soft tissues and osseous structures demonstrate an unrem arkable CT appearance. IMPRESSION: No evidence for intracranial hemorrhage or mass effect. Findings discussed with Dr. Ardon in the emergency department at 1:14 p.m. on 01/09/2018. CODE CR POS: [facility]
--- NOTE | 2018-01-09 13:56 | CT ---
CT ANGIOGRAM GREAT VESSELS NECK WITH IV CONTRAST AND 3D MIP RECONSTRUCTIONS: PROVIDED CLINICAL HISTORY: Left-sided weakness. TECHNIQUE: A 3D angiogram brain with IV contrast and 3D MIP reconstructions. FINDINGS: There is an arch origin of the left vertebral artery. The great vessels of the neck appear otherwise normal in their origin. There is mild calcified plaque seen involving the distal common carotid art eries bilaterally. There is no evidence for a significant great vessels stenosis. 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 The intracranial vesse ls demonstrate an otherwise normal CT angiographic appearance, without evidence for focal vessel sten osis, branch occlusion, or aneurysm. IMPRESSION: 1. No evidence for significant vessel stenosis involving the great vessels of the neck. 2. No evidence for focal vessel stenosis, branch occlusion, or aneurysm within the intracranial circ ulation. POS: [facility]
[2018-01-09] MEDS ORDERED: ISOVUE-370 76%-LOCM 1 ML ONE (14:51)
[2018-01-09] MEDS ORDERED: Senokot 8.6 MG TAB PO PRN ×2 (15:11)
[2018-01-09] MEDS ORDERED: Loratadine 10 MG TAB PO PRN (15:11)
[2018-01-09] MEDS ORDERED: Acetaminophen 325 MG TAB PO PRN (15:11)
[2018-01-09] MEDS ORDERED: Benzonatate 100 MG CAP PO PRN (15:11)
[2018-01-09] MEDS ORDERED: Diabetic Tussin 200 MG/10 ML UDCUP PO PRN (15:11)
[2018-01-09] MEDS ORDERED: Ondansetron HCl/PF 4 MG/2 ML Vial IVP PRN ×2 (15:11)
[2018-01-09] MEDS ORDERED: Nitroglycerin 0.4 MG TAB (25 Tab Bottle) SL PRN (15:11)
[2018-01-09] MEDS ORDERED: cloNIDine 0.1 MG TAB PO PRN (15:11)
[2018-01-09] MEDS ORDERED: Bisacodyl 5 MG TAB PO PRN ×2 (15:11)
[2018-01-09] MEDS ORDERED: hydrALAZINE 20 MG/ML VIAL SLOW IVP PRN (15:11)
[2018-01-09 16:27] LABS: Troponin I Less than 0.010 ng/mL (< 0.028)
[2018-01-09] MEDS ORDERED: Lorazepam 2 MG/ML VIAL SLOW IVP PRN (16:40)
[2018-01-09] MEDS ORDERED: Aspirin 81 mg Enteric Coated Tablet PO SCH (17:00)
--- NOTE | 2018-01-09 17:10 | HP ---
DATE OF ADMISSION: 01/09/2018 PRIMARY CARE PHYSICIAN: Aman Evans M.D. CHIEF COMPLAINT: Numbness and tingling of the lower extremities and headache and high blood pressure . HISTORY OF PRESENT ILLNESS: Ms. Sanon is a 57-year-old female with known history of severe anxiety as well as depression and labile hypertension who presented to the emergency room with the above-men tioned complaint. History is mainly obtained by the patient herself and electronic medical records h ave been reviewed. The patient was admitted here about less than a month ago for severe hyponatremia and rhabdomyolysis. She came to the emergency room today because she found out that her blood pressure was very high and she was having severe headache. She had nonspecific complaints of left arm numbness, left-sided head ache and then bilateral lower extremity paraesthesias. She also reports that her voice feels husky. She denies any specific muscle weakness, double vision or difficulties with her speech. She says th at her primary care physician is trying to adjust her blood pressure medications. She reports that s he either would have very high or very low blood pressure. Today, her blood pressure was very high a nd she did not take her lisinopril and instead decided to come to the emergency room. She denies any other recent illnesses. She denies any chest pain, shortness of breath, orthopnea, PND or lower ext remity swelling. She denies any nausea, vomiting, diarrhea, abdominal pain, dysuria, frequency, urge ncy. Upon presentation to the emergency room, her blood pressure was elevated to 185/118. She underwent g eneral examination including a 12-lead EKG, which was unremarkable. She did have some T-wave flatten ing in the septal leads. She also underwent a stroke workup with CT angio of the head and neck, whic h was unremarkable without any blocks or stenosis. She was given IV labetalol, which has improved he r blood pressure much in the systolic 140s range. Her cardiac enzymes are unremarkable. She is now being admitted for further evaluation and workup for possible stroke and control of the blood pressur e. She, however, does report that the lower extremity numbness and tingling has been going on for ab out 1 year. She also reports heavy anxiety levels and multiple underlying stressors. PAST MEDICAL HISTORY: 1. Depression. 2. Anxiety. 3. Questionable seizures, likely due to clonazepam withdrawal. 4. History of scoliosis. PAST SURGICAL HISTORY: 1. Hysterectomy. 2. Appendectomy. 3. Hospitalization for depression. 4. Peripheral neuropathy. CURRENT MEDICATIONS: As per the ER record, trazodone 150 mg at bedtime, clonazepam 2 mg b.i.d., Gabbie xa 40 mg daily, gabapentin 600 b.i.d. and Motrin p.r.n. ALLERGIES: No known medication allergies. SOCIAL HISTORY: No history of drug, tobacco or alcohol abuse. FAMILY HISTORY: Significant for mother dying at the age of 76 years. She has a history of breast ca ncer. Father at the age of 83 years, had a history of coronary artery disease. CODE STATUS: Full code. Discussed with the patient. REVIEW OF SYSTEMS: A 12-point review of systems is done. It is negative except for those mentioned in the history and physical. LABORATORY DATA: CBC is unremarkable. PT, PTT and INR are unremarkable. Serum chemistries show sod ium of 130, chloride 96, creatinine 1.22. Liver enzymes normal. Cardiac enzymes normal x2. CT ilana o of the head and neck is unremarkable. CT scan of the brain by my review has no evidence of acute m ass or hemorrhage. A 12-lead EKG shows normal sinus rhythm without any ST depression or elevation. PHYSICAL EXAMINATION: VITAL SIGNS: Most recent vital signs, blood pressure 149/87, pulse of 71, respirations 12, temperatu re 99.6, saturating 98% on room air. GENERAL: She appears very anxious, but in no acute distress, awake, alert, oriented x3. HEENT: Mucous membrane is moist and pink. No oropharyngeal exudate or erythema. Head is normocepha lic, atraumatic. Pupils equal, reactive to light and accommodation. Extraocular movement intact. NECK: Supple without any lymphadenopathy, JVD or bruit. CHEST: Clear to auscultation without any wheezing, rales or rhonchi. CARDIOVASCULAR: Rate and rhythm are regular without any murmurs, rubs or gallops. ABDOMEN: Soft, nontender, nondistended with positive bowel sounds. EXTREMITIES: Free of any cyanosis, clubbing or edema. NEUROLOGIC: Nonfocal. No focal sensory or motor deficits noted. SKIN: Free of any rashes or bruises. Feel warm and dry to touch. PSYCHIATRIC: Extreme anxiety noticed. IMPRESSION AND PLAN: 1. Uncontrolled hypertension with hypertensive urgency. We will start the patient on lisinopril 10 mg twice a day and titrated based on her response. She will also be started on p.r.n. antihypertensi ves and I have discussed that she would benefit from having a p.r.n. antihypertensive at hand after d ischarge to prevent huge fluctuations in the blood pressure. Her anxiety is also making her blood pr essure to go high. We will use Ativan p.r.n. Continue with Klonopin and Celexa for now. 2. Lower extremity paraesthesias and left arm paraesthesias. The patient will undergo stroke workup with MRI of the brain and transthoracic echocardiogram. CT angio of the head and neck is normal. W e will give her a small dose of aspirin until cerebrovascular accident/transient ischemic attack is r uled out. Check lipid panel in the morning as well. 3. Anxiety and depression. Restart her home medications as dictated above. 4. Deep venous thrombosis and gastrointestinal prophylaxis. 5. Add p.r.n. medication orders. DISPOSITION: Ms. Sanon is currently being admitted to the hospital with uncontrolled hypertension and hypertensive urgency with resulting symptoms as well as to rule out transient ischemic attack/cer ebrovascular accident. She is currently in observation status. Further management will depend upon her clinical course.
[2018-01-09] MEDS: Lorazepam 1 MG TAB PO PRN (17:53)
[2018-01-09] MEDS: traMADol HCl 50 MG TAB PO PRN ×2 (17:54→22:14)
[2018-01-09 19:29] LABS: Troponin I Less than 0.010 ng/mL (< 0.028)
[2018-01-09 19:41] VITALS: BMI 26.7
[2018-01-09] MEDS: clonazePAM 1 MG TAB PO SCH (21:13)
[2018-01-09] MEDS: Gabapentin 300 MG CAP PO SCH (21:13)
[2018-01-09] MEDS: Lisinopril 10 MG TAB PO SCH (21:14)
[2018-01-09] MEDS: traZODone HCl 150 MG TAB PO SCH (21:16)
[2018-01-10] MEDS ORDERED: Sodium Chloride 0.9% 1,000 ML IV SCH ×2 (00:45→05:30)
[2018-01-10] MEDS ORDERED: Acetaminophen/Codeine 30-300mg Tablet PO PRN (03:16)
[2018-01-10 06:08] LABS: #Basophils 0.1 thou/uL (0.0-0.2); #Eosinphils 0.3 thou/uL (0.0-0.7); #Lymphocytes 2.3 thou/uL (1.20-3.40); %Basophils 1.2 % (0.0-1.0); %Eosinophils 3.8 % (0.0-10.0); %Lymphocytes 35.2 % (21.0-51.0); %Monocytes 14.3 % (0.0-10.0); %Neutrophils 45.5 % (42.0-75.0); Hemoglobin 11.8 g/dL (12.0-16.0); Mean Corpuscular HGB CONC 33.8 g/dL (32.0-36.0); Mean Corpuscular Hemoglobin 31.1 pg (27.0-31.0); Mean Platelet Volume 6.3 fL (7.4-10.4); Platelet Count 253 thou/uL (130-400); RBC Distribution Width 12.2 % (11.5-14.5); Red Blood Cell (RBC) Count 3.79 mill/uL (4.20-5.40); White Blood Cell (WBC) Count 6.6 thou/uL (4.8-10.8)
[2018-01-10 06:40] LABS: Anion Gap 14 mmol/L (10-20); BUN (Urea Nitrogen) 14 mg/dL (9.8-20.1); Calc. Creatinine Clearance 44 mL/min (70-130); Calcium 8.7 mg/dL (7.8-10.44); Carbon Dioxide 24 mmol/L (22-29); Chloride 101 mmol/L (98-107); Estimated GFR-MDRD 40; Glucose 87 mg/dL (70-105); Potassium 4.6 mmol/L (3.5-5.1); Sodium 134 mmol/L (136-145)
--- NOTE | 2018-01-10 08:33 | RAD ---
CHEST ONE VIEW: History: Hypotension. Dyspnea. Comparison: 12-10-17 FINDINGS: Cardiac silhouette is magnified by projection. Pulmonary vasculature are unremarkable. Mediastinum is midline. No confluent airspace consolidation or evidenced of pneumothorax. pond sawyer leads ove rlie the chest. IMPRESSION: No active cardiopulmonary abnormalities are demonstrated. POS: [facility]
[2018-01-10] MEDS: Gabapentin 300 MG CAP PO SCH ×2 (09:05→21:51)
[2018-01-10] MEDS: clonazePAM 1 MG TAB PO SCH ×2 (09:05→21:50)
[2018-01-10] MEDS: Enoxaparin Sodium 40 MG/0.4 ML SYRINGE SC SCH (09:05)
[2018-01-10] MEDS: Lisinopril 10 MG TAB PO SCH (09:06)
[2018-01-10] MEDS: Aspirin 81 mg Enteric Coated Tablet PO SCH (09:06)
[2018-01-10] MEDS: Citalopram 20 MG TAB PO SCH (09:06)
[2018-01-10] MEDS: traMADol HCl 50 MG TAB PO PRN ×4 (10:09→22:14)
[2018-01-10] MEDS ORDERED: Lisinopril 10 MG TAB PO SCH ×2 (10:24→10:25)
[2018-01-10] MEDS ORDERED: Famotidine 20 MG TAB PO SCH (11:30)
[2018-01-10] MEDS: Lorazepam 1 MG TAB PO PRN ×4 (11:40→22:15)
--- NOTE | 2018-01-10 13:53 | PDOC.PN ---
- Subjective Encounter Start Date: 01/10/18 Encounter Start Time: 13:52 Subjective: feels anxious ,c/o heartburn -: does c/o chr pain and headache requesting pain meds - Objective MAR Reviewed: Yes Vital Signs & Weight: Vital Signs (12 hours) Temp Pulse Resp BP BP BP BP 01/10/18 12:27 94/50 L 95/59 L 98/57 L 01/10/18 11:24 98.4 F 77 20 100/51 L 01/10/18 09:06 96/54 L 01/10/18 07:44 97.5 F L 74 18 99/57 L 01/10/18 05:10 88/53 L 01/10/18 04:00 97.4 F L 69 14 92/50 L 01/10/18 02:53 66 124/62 01/10/18 02:41 64 98/51 L Pulse Ox 01/10/18 12:27 01/10/18 11:24 98 01/10/18 09:06 01/10/18 07:44 99 01/10/18 05:10 01/10/18 04:00 99 01/10/18 02:53 01/10/18 02:41 Weight Admit Weight 136 lb 12.8 oz Weight 136 lb 12.8 oz I&O: 01/09/18 01/10/18 01/11/18 06:59 06:59 06:59 Intake Total 3350 Balance 3350 Result Diagrams: 01/10/18 05:34 01/10/18 05:34 Additional Labs: Laboratory Tests 10/13/16 10/13/16 10/13/16 13:42 17:34 20:15 Creatinine Troponin I 0.018 0.037 H 0.023 Acetaminophen Plasma Alcohol Hepatitis A IgM Ab Hep Bs Antigen Hep B Core IgM Ab Hepatitis C Antibody 10/13/16 10/13/16 01/01/18 20:15 20:15 09:36 Creatinine 1.07 Troponin I Acetaminophen Less than 6.0 L Plasma Alcohol Less than 10 Hepatitis A IgM Ab Non-Reactive Hep Bs Antigen Non-Reactive Hep B Core IgM Ab Non-Reactive Hepatitis C Antibody Non-Reactive 01/09/18 01/09/18 01/09/18 12:58 12:58 15:53 Creatinine 1.22 H Troponin I Less than 0.010 Less than 0.010 Acetaminophen Plasma Alcohol Hepatitis A IgM Ab Hep Bs Antigen Hep B Core IgM Ab Hepatitis C Antibody 01/09/18 01/10/18 18:50 05:34 Creatinine 1.36 H Troponin I Less than 0.010 Acetaminophen Plasma Alcohol Hepatitis A IgM Ab Hep Bs Antigen Hep B Core IgM Ab Hepatitis C Antibody Radiology Reviewed by me: Yes (CXR-NL) EKG Reviewed by me: Yes (NSR on monitor) Phys Exam - Physical Examination Constitutional: NAD pale,anxious HEENT: PERRLA, moist MMs, sclera anicteric, TM's clear, oral pharynx no lesions , 2+ tonsils Neck: no nodes, no JVD, supple, full ROM Respiratory: no wheezing, no rales, no rhonchi, clear to auscultation bilateral Cardiovascular: RRR, no significant murmur Gastrointestinal: soft, non-tender, no distention, positive bowel sounds Musculoskeletal: no edema, pulses present Neurological: non-focal, normal sensation, moves all 4 limbs Psychiatric: normal affect, A&O x 3 Skin: no rash Dx/Plan (1) Hypotension Status: Acute (2) MARI (acute kidney injury) Code(s): N17.9 - ACUTE KIDNEY FAILURE, UNSPECIFIED Status: Acute (3) Bilateral leg paresthesia Code(s): R20.2 - PARESTHESIA OF SKIN Status: Acute (4) Anxiety and depression Code(s): F41.9 - ANXIETY DISORDER, UNSPECIFIED; F32.9 - MAJOR DEPRESSIVE DISORDER, SINGLE EPISODE, UNSPECIFIED Status: Chronic (5) Hypertensive urgency Code(s): I16.0 - HYPERTENSIVE URGENCY Status: Resolved - Plan DVT proph w/SCDs BP dangerously low. will reduce lisinopril w parameters. -: Suspect dehydration w MARI worsening. start NS.recheck labs in am -: check UA to r/o UTI.CXR unremarkable. -: MRI brain and echo pending -: am labs.Titrate BP meds.labile HTN * .Minimize narcotics Review of Systems - Review of Systems Constitutional: weakness, malaise. negative: fever, chills, sweats, other ENT: negative: Ear Pain, Ear Discharge, Nose Pain, Nose Discharge, Nose Congestion, Mouth Pain, Mouth Swelling, Throat Pain, Throat Swelling, Other Respiratory: negative: Cough, Dry, Shortness of Breath, Hemoptysis, SOB with Excertion, Pleuritic Pain, Sputum, Wheezing Cardiovascular: negative: chest pain, palpitations, orthopnea, paroxysmal nocturnal dyspnea, edema, light headedness, other Gastrointestinal: negative: Nausea, Vomiting, Abdominal Pain, Diarrhea, Constipation, Melena, Hematochezia, Other Genitourinary: negative: Dysuria, Frequency, Incontinence, Hematuria, Retention , Other Musculoskeletal: negative: Neck Pain, Shoulder Pain, Arm Pain, Back Pain, Hand Pain, Leg Pain, Foot Pain, Other Skin: negative: Rash, Lesions, Darwin, Bruising, Other Neurological: Other - Medications/Allergies Allergies/Adverse Reactions: Allergies Allergy/AdvReac Type Severity Reaction Status Date / Time No Known Drug Allergies Allergy Verified 01/09/18 17:28 Medications: Current Medications Acetaminophen (Tylenol) 650 mg PO Q4H PRN PRN Reason: Headache/Fever or Pain Acetaminophen/Codeine Phosphate (Tylenol #3) 1 tab PO Q6H PRN PRN Reason: HEADACHE/PAIN-MOD Last Admin: 01/10/18 03:27 Dose: 1 tab Al Hydroxide/Mg Hydroxide (Maalox) 30 ml PO Q4H PRN PRN Reason: Heartburn or Indigestion Aspirin (Ecotrin) 81 mg PO DAILY [facility] Last Admin: 01/10/18 09:06 Dose: 81 mg Benzonatate (Tessalon) 100 mg PO Q4H PRN PRN Reason: Cough Bisacodyl (Dulcolax) 10 mg PO DAILYPRN PRN PRN Reason: Constipation Citalopram Hydrobromide (Celexa) 40 mg PO DAILY [facility] Last Admin: 01/10/18 09:06 Dose: 40 mg Clonazepam (Klonopin) 2 mg PO BID [facility] Last Admin: 01/10/18 09:05 Dose: 2 mg Clonidine (Catapres) 0.1 mg PO Q4H PRN PRN Reason: Systolic BP > 160 Enoxaparin Sodium (Lovenox) 40 mg SC 0900 [facility] Last Admin: 01/10/18 09:05 Dose: 40 mg Gabapentin (Neurontin) 600 mg PO BID [facility] Last Admin: 01/10/18 09:05 Dose: 600 mg Guaifenesin (Robitussin Sf) 200 mg PO Q4H PRN PRN Reason: Cough Hydralazine HCl (Apresoline) 10 mg SLOW IVP Q4H PRN PRN Reason: Systolic BP > 170 Sodium Chloride (Normal Saline 0.9%) 1,000 mls @ 75 mls/hr IV .[id number] [facility] Lisinopril (Zestril) 5 mg PO BID [facility] Loratadine (Claritin) 10 mg PO DAILYPRN PRN PRN Reason: Sinus Symptoms Lorazepam (Ativan) 1 mg PO Q4H PRN PRN Reason: Anxiety/Agitation Last Admin: 01/10/18 11:40 Dose: 1 mg Lorazepam (Ativan) 1 mg SLOW IVP Q6H PRN PRN Reason: Anxiety/Agitation Nitroglycerin (Nitrostat) 0.4 mg SL Q5MIN PRN PRN Reason: Chest Pain Ondansetron HCl (Zofran) 4 mg IVP Q6H PRN PRN Reason: Nausea/Vomiting Senna (Senokot) 2 tab PO HSPRN PRN PRN Reason: Constipation Tramadol HCl (Ultram) 50 mg PO Q4H PRN PRN Reason: Moderate Pain (4-6) Last Admin: 01/10/18 10:09 Dose: 50 mg Trazodone HCl (Desyrel) 150 mg PO HS [facility] Last Admin: 01/09/18 21:16 Dose: 150 mg
[2018-01-10] MEDS: Sodium Chloride 0.9% 1,000 ML IV SCH (14:48)
[2018-01-10 15:17] LABS: Bilirubin Negative (Negative); Blood, Urine Negative (Negative); Clarity CLEAR (Clear); Glucose, Urine (Dipstick) Negative (Negative); Leukocyte Negative (Negative); Nitrite Negative (Negative); Protein, Urine (Dipstick) Negative (Neg-Trace); Specific Gravity, Urine 1.008 (1.002-1.036); Urobilinogen 0.2 mg/dL (0.2-1.0); pH, Urine 6.5 (5.0-9.0)
[2018-01-10] MEDS ORDERED: Lisinopril 5 MG TAB PO SCH (21:00)
[2018-01-10] MEDS: traZODone HCl 150 MG TAB PO SCH (21:50)
[2018-01-11] MEDS: Mag-Al 1200 mg/1200 mg/30 ML UDCUP PO PRN ×2 (01:51→09:53)
[2018-01-11] MEDS: traMADol HCl 50 MG TAB PO PRN ×4 (02:22→14:35)
[2018-01-11] MEDS: Lorazepam 1 MG TAB PO PRN ×4 (02:23→15:47)
[2018-01-11] MEDS: Sodium Chloride 0.9% 1,000 ML IV SCH (04:05)
[2018-01-11 04:10] LABS: #Eosinphils 0.2 thou/uL (0.0-0.7); #Lymphocytes 1.6 thou/uL (1.20-3.40); #Monocytes 0.5 thou/uL (0.11-0.59); #Neutrophils 1.8 thou/uL (1.40-6.50); %Basophils 0.4 % (0.0-1.0); %Eosinophils 5.3 % (0.0-10.0); %Lymphocytes 37.9 % (21.0-51.0); %Monocytes 12.8 % (0.0-10.0); %Neutrophils 43.5 % (42.0-75.0); Hemoglobin 10.6 g/dL (12.0-16.0); Mean Corpuscular HGB CONC 33.6 g/dL (32.0-36.0); Mean Corpuscular Hemoglobin 31.2 pg (27.0-31.0); Mean Platelet Volume 6.3 fL (7.4-10.4); Platelet Count 211 thou/uL (130-400); RBC Distribution Width 12.1 % (11.5-14.5); Red Blood Cell (RBC) Count 3.41 mill/uL (4.20-5.40); White Blood Cell (WBC) Count 4.1 thou/uL (4.8-10.8)
[2018-01-11 04:30] LABS: Anion Gap 9 mmol/L (10-20); BUN (Urea Nitrogen) 10 mg/dL (9.8-20.1); Calc. Creatinine Clearance 72 mL/min (70-130); Calcium 8.4 mg/dL (7.8-10.44); Carbon Dioxide 25 mmol/L (22-29); Chloride 109 mmol/L (98-107); Estimated GFR-MDRD 71; Glucose 76 mg/dL (70-105); Potassium 4.1 mmol/L (3.5-5.1); Sodium 139 mmol/L (136-145)
[2018-01-11] MEDS: Gabapentin 300 MG CAP PO SCH (08:47)
[2018-01-11] MEDS: Enoxaparin Sodium 40 MG/0.4 ML SYRINGE SC SCH (08:48)
[2018-01-11] MEDS: Aspirin 81 mg Enteric Coated Tablet PO SCH (08:48)
[2018-01-11] MEDS: Citalopram 20 MG TAB PO SCH (08:48)
[2018-01-11] MEDS: clonazePAM 1 MG TAB PO SCH (08:48)
[2018-01-11] MEDS ORDERED: Lisinopril 2.5 MG TAB PO SCH (09:00)
--- NOTE | 2018-01-11 11:26 | PDOC.PN ---
- Subjective Encounter Start Date: 01/11/18 Encounter Start Time: 11:25 Subjective: feels better but didn't sleep last night -: anxiety very high -: c/o headache - Objective MAR Reviewed: Yes Vital Signs & Weight: Vital Signs (12 hours) Temp Pulse Resp BP BP BP Pulse Ox 01/11/18 08:47 75 01/11/18 08:00 97.9 F 75 20 119/60 98 01/11/18 04:00 97.9 F 69 16 131/64 100 01/11/18 00:00 97.8 F 73 16 108/57 L 97 Weight Admit Weight 136 lb 12.8 oz Weight 140 lb 3.2 oz I&O: 01/10/18 01/11/18 01/12/18 06:59 06:59 06:59 Intake Total 3350 1620 Balance 3350 1620 Result Diagrams: 01/11/18 04:02 01/11/18 04:02 Phys Exam - Physical Examination Constitutional: NAD HEENT: PERRLA, moist MMs, sclera anicteric, oral pharynx no lesions Neck: no nodes, no JVD, supple, full ROM Respiratory: no wheezing, no rales, no rhonchi, clear to auscultation bilateral Cardiovascular: RRR, no significant murmur Gastrointestinal: soft, non-tender, no distention, positive bowel sounds Musculoskeletal: no edema, pulses present Neurological: non-focal, normal sensation, moves all 4 limbs Psychiatric: normal affect, A&O x 3 Skin: no rash Dx/Plan (1) Hypotension Status: Acute (2) MARI (acute kidney injury) Code(s): N17.9 - ACUTE KIDNEY FAILURE, UNSPECIFIED Status: Acute Comment: Improved w IVF (3) Bilateral leg paresthesia Code(s): R20.2 - PARESTHESIA OF SKIN Status: Acute (4) Anxiety and depression Code(s): F41.9 - ANXIETY DISORDER, UNSPECIFIED; F32.9 - MAJOR DEPRESSIVE DISORDER, SINGLE EPISODE, UNSPECIFIED Status: Chronic (5) Hypertensive urgency Code(s): I16.0 - HYPERTENSIVE URGENCY Status: Resolved - Plan out of bed/ambulate, DVT proph w/SCDs DC home if MRI negative for acute issues -: Only prn anti-hypertensives on DC. Pt educated -: Likley labile HTN.will hold lisinopril -: BP better w IVF.not orthostatic * . Review of Systems - Review of Systems Constitutional: negative: fever, chills, sweats, weakness, malaise, other Eyes: negative: Pain, Vision Change, Conjunctivae Inflammation, Eyelid Inflammation, Redness, Other ENT: negative: Ear Pain, Ear Discharge, Nose Pain, Nose Discharge, Nose Congestion, Mouth Pain, Mouth Swelling, Throat Pain, Throat Swelling, Other Respiratory: negative: Cough, Dry, Shortness of Breath, Hemoptysis, SOB with Excertion, Pleuritic Pain, Sputum, Wheezing Cardiovascular: negative: chest pain, palpitations, orthopnea, paroxysmal nocturnal dyspnea, edema, light headedness, other Gastrointestinal: negative: Nausea, Vomiting, Abdominal Pain, Diarrhea, Constipation, Melena, Hematochezia, Other Musculoskeletal: negative: Neck Pain, Shoulder Pain, Arm Pain, Back Pain, Hand Pain, Leg Pain, Foot Pain, Other Skin: negative: Rash, Lesions, Darwin, Bruising, Other Neurological: negative: Weakness, Numbness, Incoordination, Change in Speech, Confusion, Seizures, Other - Medications/Allergies Allergies/Adverse Reactions: Allergies Allergy/AdvReac Type Severity Reaction Status Date / Time No Known Drug Allergies Allergy Verified 01/09/18 17:28 Medications: Current Medications Acetaminophen (Tylenol) 650 mg PO Q4H PRN PRN Reason: Headache/Fever or Pain Acetaminophen/Codeine Phosphate (Tylenol #3) 1 tab PO Q6H PRN PRN Reason: HEADACHE/PAIN-MOD Last Admin: 01/10/18 03:27 Dose: 1 tab Al Hydroxide/Mg Hydroxide (Maalox) 30 ml PO Q4H PRN PRN Reason: Heartburn or Indigestion Last Admin: 01/11/18 09:53 Dose: 30 ml Aspirin (Ecotrin) 81 mg PO DAILY [facility] Last Admin: 01/11/18 08:48 Dose: 81 mg Benzonatate (Tessalon) 100 mg PO Q4H PRN PRN Reason: Cough Bisacodyl (Dulcolax) 10 mg PO DAILYPRN PRN PRN Reason: Constipation Citalopram Hydrobromide (Celexa) 40 mg PO DAILY [facility] Last Admin: 01/11/18 08:48 Dose: 40 mg Clonazepam (Klonopin) 2 mg PO BID [facility] Last Admin: 01/11/18 08:48 Dose: 2 mg Clonidine (Catapres) 0.1 mg PO Q4H PRN PRN Reason: Systolic BP > 160 Enoxaparin Sodium (Lovenox) 40 mg SC 0900 [facility] Last Admin: 01/11/18 08:48 Dose: 40 mg Gabapentin (Neurontin) 600 mg PO BID [facility] Last Admin: 01/11/18 08:47 Dose: 600 mg Guaifenesin (Robitussin Sf) 200 mg PO Q4H PRN PRN Reason: Cough Hydralazine HCl (Apresoline) 10 mg SLOW IVP Q4H PRN PRN Reason: Systolic BP > 170 Sodium Chloride (Normal Saline 0.9%) 1,000 mls @ 75 mls/hr IV .[id number] [facility] Last Admin: 01/11/18 04:05 Dose: 1,000 mls Lisinopril (Zestril) 2.5 mg PO BID [facility] Last Admin: 01/11/18 08:47 Dose: 2.5 mg Loratadine (Claritin) 10 mg PO DAILYPRN PRN PRN Reason: Sinus Symptoms Lorazepam (Ativan) 1 mg PO Q4H PRN PRN Reason: Anxiety/Agitation Last Admin: 01/11/18 10:30 Dose: 1 mg Lorazepam (Ativan) 1 mg SLOW IVP Q6H PRN PRN Reason: Anxiety/Agitation Nitroglycerin (Nitrostat) 0.4 mg SL Q5MIN PRN PRN Reason: Chest Pain Ondansetron HCl (Zofran) 4 mg IVP Q6H PRN PRN Reason: Nausea/Vomiting Senna (Senokot) 2 tab PO HSPRN PRN PRN Reason: Constipation Tramadol HCl (Ultram) 50 mg PO Q4H PRN PRN Reason: Moderate Pain (4-6) Last Admin: 01/11/18 10:27 Dose: 50 mg Trazodone HCl (Desyrel) 150 mg PO [facility] Last Admin: 01/10/18 21:50 Dose: 150 mg
--- NOTE | 2018-01-11 12:13 | MRI ---
NONCONTRAST ENHANCED MRI BRAIN: HISTORY: Generalized weakness. Evaluate for stroke. TECHNIQUE: Multiplanar, multisequence, noncontrast enhanced MRI brain obtained. FINDINGS: Images demonstrate the brain to be unremarkable. No evidence of intracranial masses, hemorrhages, st rokes, or contusions seen. The ventricles are of normal size. Normal flow voids seen in the major i ntracranial vessels. The sinuses are well aerated. IMPRESSION: Unremarkable noncontrast enhanced magnetic resonance imaging of the brain. POS: [facility]
[2018-01-11 12:44] VITALS: TEMP 98.5
[2018-01-11 15:59] VITALS: BP 132/63
--- NOTE | 2018-01-11 19:20 | DIS ---
DATE OF ADMISSION: 01/09/2018 DATE OF DISCHARGE: 01/11/2018 CONDITION AT THE TIME OF DISCHARGE: Stable and improved. DISCHARGE DIAGNOSES: 1. Labile hypertension. 2. Paraesthesias likely secondary to anxiety. 3. Extreme anxiety. PROCEDURES DONE IN THE HOSPITAL: 1. CT angiogram of the head and neck, which is unremarkable. 2. Transthoracic echocardiogram, which is unremarkable. EF is 60%-65% with normal diastolic functio n. 3. MRI of the brain, which is also unremarkable. PRIMARY CARE PHYSICIAN: Aman Evans MD DISCHARGE MEDICATIONS: Clonidine 0.1 mg every 4 hours as needed only for systolic blood pressure mor e than 150. The patient is instructed to hold her lisinopril until she is seen by her primary care palmer kerns. HISTORY OF PRESENT ILLNESS: Ms. Sanon is a 57-year-old female with extreme anxiety and history of labile hypertension who presented to the emergency room with nonspecific complaints of numbness and t ingling in her arms and then her legs. She was admitted as a stroke workup. Upon presentation, she was noticed to be hypertensive in the Emergency Room with systolic in the 200s and diastolic in the 1 [address] She underwent a CT angio in the ER of the head and neck which was unremarkable. Please see adm ission history and physical for further detail. HOSPITAL COURSE: The patient remained hypotensive throughout her hospitalization. She seemed to hav e some dehydration as evident by elevated creatinine upon presentation to 1.22. Cardiac enzymes were trended and were negative x3. Echo and MRI was also ordered, which was also unremarkable. Eventual ly with normal saline, her creatinine came back down to normal this morning at 0.83. Her blood press ure is in 105/59-119/60 this morning without any medications. Labile hypertension is suspected. The patient is also heavily using multiple benzodiazepines and antidepressants including clonazepam, Melva exa and gabapentin as well as 150 mg of trazodone at bedtime. On top of that, she has been asking fo r pain medications and antianxiety medications throughout her hospitalization every few hours. This is also contributing to the lower blood pressure while in here. At this time, I am not prescribing a ny new medications, especially any benzodiazepines or pain medications for this patient who clearly i s a very habitual of those. Extreme anxiety was noted throughout her hospitalization, but all of the workup is negative and her symptoms are likely functional. She will be discharged. Please see hosp italist progress note from today's date for further detail including [id number] interaction. Discharge was delayed because the MRI could not be done as ordered on time.
--- NOTE | 2018-01-13 12:43 | CT ---
CT ANGIOGRAM GREAT VESSELS NECK WITH IV CONTRAST AND 3D MIP RECONSTRUCTIONS: CTA ANGIO NECK W WO CON: PROVIDED CLINICAL HISTORY: Left-sided weakness. TECHNIQUE: A 3D angiogram brain with IV contrast and 3D MIP reconstructions. FINDINGS: There is an arch origin of the left vertebral artery. The great vessels of the neck appear otherwise normal in their origin. There is mild calcified plaque seen involving the distal common carotid art eries bilaterally. There is no evidence for a significant great vessels stenosis. 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 The intracranial vesse ls demonstrate an otherwise normal CT angiographic appearance, without evidence for focal vessel sten osis, branch occlusion, or aneurysm. IMPRESSION: 1. No evidence for significant vessel stenosis involving the great vessels of the neck. 2. No evidence for focal vessel stenosis, branch occlusion, or aneurysm within the intracranial circ ulation.
== END 2018-01-11 17:25 | disposition home or self-care (01) ==
LOC: ERS 12:47 → 2SE 16:51
PROVIDERS: ADMIT Internal Medicine; ATTEND Internal Medicine
DX: I16.0 Hypertensive urgency (principal); I10 Essential (primary) hypertension; R20.2 Paresthesia of skin; I95.9 Hypotension, unspecified; N17.9 Acute kidney failure, unspecified; F41.9 Anxiety disorder, unspecified; F32.9 Major depressive disorder, single episode, unspecified; Z79.899 Other long term (current) drug therapy
CPT/HCPCS: 36415; 36416; 70450; 70496; 70498; 70551; 71045; 80048; 80053; 81003; 82553; 84484; 85025; 85610; 85730; 93005; 93306; 96361; 96372; 96374; G0378; J1650

== ENCOUNTER 2018-11-01 00:39 | Emergency (ER) | payer SELFPAY ==
[2018-11-01] MEDS ORDERED: Ketorolac Tromethamine 60 MG/2 ML VIAL ONE (01:50)
[2018-11-01] MEDS ORDERED: HYDROcodone/Acetaminophen 5/325 mg Tablet ONE (01:50)
--- NOTE | 2018-11-01 08:17 | CT ---
CT OF THE PELVIS: DATE: 11/01/2018. COMPARISON: None. HISTORY: Left hip pain, fall 3 days ago. TECHNIQUE: Axial CT imaging obtained at 3.75 mm intervals through the pelvis without contrast. Coronal and sagi ttal reformatted imaging obtained. FINDINGS: Limited assessment of the imaged bowel appears grossly unremarkable. There is mild degenerative change at the pubic symphysis. There is no widening of the sacroiliac jessi nts or the pubic symphysis. Lower lumbar spine facet hypertrophy is noted, left greater than right. Neither hip appears dislocated. There is no displaced fracture involving the superior or inferior pubic ramus on either side. There is no evidence for a displaced hip fracture on either side. Imaged proximal femur appears intact estrada aterally. There is no worrisome lytic or blastic bone lesion. IMPRESSION: No acute fracture or evidence of dislocation is seen. If symptoms persist, followup MRI advised to e xclude occult fracture. POS: [facility]
== END 2018-11-01 02:41 | disposition home or self-care (01) ==
LOC: ERS 00:39
DX: M54.32 Sciatica, left side (principal); F41.0 Panic disorder [episodic paroxysmal anxiety]; E87.1 Hypo-osmolality and hyponatremia
CPT/HCPCS: 72192; 96372; J1885

== ENCOUNTER 2018-12-26 18:23 | Emergency (ER) | payer SELFPAY ==
--- NOTE | 2018-12-26 19:11 | RAD ---
RIGHT WRIST: 12/26/18 Three views. HISTORY: Fall with injury to wrist. There is a mildly comminuted fracture involving the distal scaphoid. Distal radius and ulna appear intact. No other fracture identified. IMPRESSION: Mildly comminuted minimally displaced fracture involving the distal scaphoid with involvement of the articular surface at the scaphotrapezium. POS: [facility]
--- NOTE | 2018-12-26 19:11 | RAD ---
LEFT HIP TWO VIEWS: 12/26/18 HISTORY: Fell with hip pain. There is no signs of fracture or dislocation. IMPRESSION: Negative left hip. POS: KITA
[2018-12-26] MEDS ORDERED: Ketorolac Tromethamine 30 MG/ML VIAL ONE (19:43)
[2018-12-26] MEDS ORDERED: traMADol HCl 50 MG TAB ONE (19:43)
== END 2018-12-26 20:10 | disposition home or self-care (01) ==
LOC: ERS 18:23
DX: S62.011A Displaced fracture of distal pole of navicular [scaphoid] bone of right wrist, initial encounter for closed fracture (principal); S70.02XA Contusion of left hip, initial encounter; I10 Essential (primary) hypertension; F41.0 Panic disorder [episodic paroxysmal anxiety]; Z79.899 Other long term (current) drug therapy; W18.30XA Fall on same level, unspecified, initial encounter
CPT/HCPCS: 29125; 96372; J1885

== ENCOUNTER 2019-01-20 16:24 | Inpatient (IN) | payer SELFPAY ==
--- NOTE | 2019-01-20 16:44 | RAD ---
EXAM: CHEST ONE VIEW HISTORY: Fever, cough, and congestion. COMPARISON: 01/10/2018. FINDINGS: Endotracheal tube is noted in place with the tip overlying the T3-4 level and above the level of the chey. Nasogastric tube is also noted in place with tip overlying the left upper quadrant. The cardiac silhouette and pulmonary vasculature are within normal limits. There is minimal patchy de nsity in the left infrahilar region likely related to atelectasis, but developing pneumonia cannot be entirely excluded. The lungs are otherwise clear. The osseous structures are intact. IMPRESSION: 1. Minimal patchy density left lung base which could be related to atelectasis, developing pneumonia, or aspiration pneumonitis. Follow-up evaluation is recommended. 2. Endotracheal tube and nasogastric tubes noted in place.
--- NOTE | 2019-01-20 16:54 | CT ---
CT OF THE BRAIN WITHOUT CONTRAST: 01/20/19 HISTORY: Altered mental status. FINDINGS: Comparison made with exam of 01/09/18. No evidence of acute infarct, hemorrhage, midline shift or abnormal extra-axial fluid collections. Th e ventricular size is normal and the basilar cisterns patent. The bony calvarium is intact. IMPRESSION: No CT evidence of acute intracranial process. POS: OFF
[2019-01-20] MEDS ORDERED: EPINEPHrine 1 MG/10 ML Abboject SYRINGE ONE (16:58)
[2019-01-20] MEDS ORDERED: Amiodarone 150 MG/3 ML VIAL ONE ×2 (17:08→17:10)
[2019-01-20] MEDS ORDERED: Norepinephrine 4 MG/4 ML VIAL ONE (17:17)
[2019-01-20 17:22] LABS: Hemoglobin 11.1 g/dL (12.0-16.0); Mean Corpuscular HGB CONC 33.3 g/dL (32.0-36.0); Mean Corpuscular Hemoglobin 30.8 pg (27.0-31.0); Mean Corpuscular Volume 92.3 fL (78.0-98.0); Mean Platelet Volume 7.4 fL (7.4-10.4); Platelet Count 345 thou/uL (130-400); RBC Distribution Width 11.5 % (11.5-14.5); Red Blood Cell (RBC) Count 3.61 mill/uL (4.20-5.40); White Blood Cell (WBC) Count 22.8 thou/uL (4.8-10.8)
[2019-01-20] MEDS ORDERED: Amiodarone HCl 450 MG in Dextrose 5% in Water 250 ML IVPB SCH (17:30)
[2019-01-20 17:32] LABS: Actual Bicarbonate (HCO3a) 13.4 mEq/L (22-28); Analyzer IN Cardio ER; Base Excess (BEa) -13.8 mEq/L (-2.0 to +3.0); CO2 Tension 36.5 mmHg (35.0-45.0); Calcium, Ionized 1.41 mmol/L (1.12-1.30); Carboxyhemoglobin (COHb) 0.5 gm% (0.0-3.0); O2 Tension (PaO2) 106.9 mmHg (80.0-100.0); Potassium - ABG Lab 2.45 mmol/L (3.70-5.30)
[2019-01-20 17:34] LABS: pH, Arterial 7.18 (7.35-7.45)
[2019-01-20 17:35] LABS: ALV-art Gradient 61.375 (0-20); Puncture Site LBA
--- NOTE | 2019-01-20 17:39 | RAD ---
XR Chest 1 View Portable History: Central line placement Comparison: Radiograph same day Findings: Endotracheal tube tip just below the clavicles. Enteric tube tip at the gastric body. Defibrillator pad projects over the right hemithorax. There is a new catheter projecting over the left subclavian vein extending to the superior vena cava, right atrium, inferior vena cava. Impression: New catheter projecting over the left subclavian vein extending into the superior vena cava, right at rium, and inferior vena cava with tip below the field of view.
[2019-01-20 17:40] LABS: Acetaminophen Less than 6.0 mcg/mL (10.0-30.0); Alcohol Less than 10 mg/dL (Less than 10); Salicylate Less than 8.0 mg/dL (15.0-30.0)
[2019-01-20 17:41] LABS: ALT (SGPT) 24 U/L (8-55); AST (SGOT) 57 U/L (5-34); Albumin 2.8 g/dL (3.5-5.0); Alkaline Phosphatase 148 U/L (40-110); Anion Gap 16 mmol/L (10-20); BUN (Urea Nitrogen) 18 mg/dL (9.8-20.1); Bilirubin, Total 0.2 mg/dL (0.2-1.2); CK (CPK) 111 U/L (29-168); Calc. Creatinine Clearance 0 mL/min (70-130); Calcium 7.3 mg/dL (7.8-10.44); Carbon Dioxide 14 mmol/L (22-29); Chloride 114 mmol/L (98-107); Estimated GFR-MDRD 27; Glucose 116 mg/dL (70-105); Potassium 3.1 mmol/L (3.5-5.1); Protein, Total 4.8 g/dL (6.0-8.3); Sodium 141 mmol/L (136-145)
[2019-01-20 17:45] LABS: Band 27 % (5-11); Eosinophils 1 % (0-10); Lymphocytes 13 % (21-51); MDiff Complete? YES; Monocytes 15 % (0-10); Neutrophil 40 % (42-75); Platelet Morphology Comment Appears Adequate; Polychromasia SLIGHT = 2-3 cells (100X) (0-2/hpf); Reactive Lymphocytes 4 % (0-10)
[2019-01-20 17:57] LABS: CKMB 6.3 ng/mL (0-6.6)
[2019-01-20] MEDS ORDERED: Potassium Chloride 40 MEQ in Sodium Chloride 0.9% 250 ML 250 ML IVPB SCH (18:15)
[2019-01-20] MEDS ORDERED: Piperacillin/Tazobactam 4.5 GM VIAL ONE (18:20)
[2019-01-20 18:43] LABS: Bilirubin Negative (Negative); Blood, Urine 1+ (Negative); Clarity Turbid (Clear); Glucose, Urine (Dipstick) 70 mg/dL (Negative); Leukocyte Negative Leu/uL (Negative); Nitrite Negative (Negative); Protein, Urine (Dipstick) 100 mg/dL (Neg-Trace); RBC/HPF 21-50 HPF (0-3); Urobilinogen Normal mg/dL (Less than 2)
[2019-01-20 18:52] LABS: Bacteria/HPF Rare-Few HPF (None Seen); Renal Epithelial None Seen HPF (None Seen)
[2019-01-20 18:54] LABS: Amphetamine Not Detected (NotDetected); Barbiturates Screen Not Detected (NotDetected); Benzodiazepine Screen Not Detected (NotDetected); Cocaine Metabolite Screen Not Detected (NotDetected); Medtox Control Line Valid? VALID (VALID); Medtox Reader # READER 4; Methadone Not Detected (NotDetected); Methamphetamine Not Detected (NotDetected); Opiate Screen Detected (NotDetected); Oxycodone Screen Not Detected (NotDetected); Phencyclidine (PCP) Not Detected (NotDetected); THC/Cannabinoid Screen Not Detected (NotDetected); Tricyclic Screen Not Detected (NotDetected)
[2019-01-20] MEDS ORDERED: Acetaminophen 650 MG Suppository PR PRN (19:07)
[2019-01-20] MEDS ORDERED: Hydrocortisone Sod Succ/PF 100 mg/2 ml Vial ONE (19:07)
[2019-01-20] MEDS ORDERED: Ventilator Sedation Protocol 1 EACH FS ONE (19:09)
[2019-01-20] MEDS ORDERED: Sodium Chloride 0.9% 1,000 ML IV SCH (19:15)
[2019-01-20] MEDS ORDERED: Norepinephrine 8 MG in Dextrose 5% in Water 242 ML IVPB SCH (19:15)
[2019-01-20] MEDS ORDERED: Propofol BOLUS 1,000 MG/100 ML VIAL IV PRN (19:17)
[2019-01-20] MEDS ORDERED: Fentanyl BOLUS 250 ML IVPB PRN (19:17)
[2019-01-20] MEDS ORDERED: fentaNYL Citrate/PF 2,000 MCG in Sodium Chloride 0.9% 60 ML IV SCH (19:17)
[2019-01-20] MEDS ORDERED: DISCONTINUE PREVIOUS NARCOTIC PAIN MEDICATIONS AND BENZODIAZEPINES FS SCH (19:17)
[2019-01-20 20:32] LABS: Actual Bicarbonate (HCO3a) 10.3 mEq/L (22-28); Base Excess (BEa) -14.1 mEq/L (-2.0 to +3.0); Calcium, Ionized 1.14 mmol/L (1.12-1.30); Carboxyhemoglobin (COHb) 1.5 gm% (0.0-3.0); O2 Tension (PaO2) 95.8 mmHg (80.0-100.0); Potassium - ABG Lab 3.71 mmol/L (3.70-5.30)
[2019-01-20 20:41] LABS: CO2 Tension 21.4 mmHg (35.0-45.0)
[2019-01-20] MEDS ORDERED: Famotidine/PF 20 mg/2ml Vial SLOW IVP SCH (21:00)
[2019-01-20 21:12] LABS: Lactic Acid 1.5 mmol/L (0.5-2.2)
[2019-01-20 21:20] LABS: Troponin I 0.381 ng/mL (< 0.028)
[2019-01-20] MEDS ORDERED: Cefepime 2 GM in Sodium Chloride 0.9% 100 ML IVPB SCH (22:15)
[2019-01-20] MEDS: Piperacillin/Tazobactam 3.375 GM in Sodium Chloride 0.9% 100 ML IVPB SCH (23:13)
[2019-01-20] MEDS: Propofol 1,000 MG/100 ML VIAL IV PRN (23:13)
[2019-01-20] MEDS: Hydrocortisone Sod Succ/PF 100 mg/2 ml Vial IVP SCH (23:17)
--- NOTE | 2019-01-20 23:43 | HP ---
CHIEF COMPLAINT: Unresponsive. HISTORY OF PRESENT ILLNESS: This patient is a 58-year-old female, who has a history of depression and anxiety with history of seizures and peripheral neuropathy. She presented to the hospital today via [facility]. The patient's reports that yesterday, she was experiencing some constipation, for which she took some Ex- Lax. He reports that in the past when she has taken Ex-Lax, it has caused her to have adverse reaction including significant GI distress. He said he talked to her today about 10 minutes till noon. She told him that she had fallen twice that morning , but seemed okay otherwise. He tried to call her again a couple of times in the afternoon and when she did not answer, he went home early to check on her. When he got there, he found her sitting on the toilet with apparently a basin with emesis sitting on her lap. However, she was lying back on the toilet with her head back with emesis in her mouth and over her face, neck and chest area. He did not believe she was breathing and he attempted to do [id number] resuscitation on her. He said after that she subsequently took a gasp too. He called the ambulance and on their arrival, the patient was intubated. She was on air ambulance here to the hospital. On arrival, a Almeida catheter was placed and the core temperature was 90.4. She had no urine output. She had no specific evidence of infection that was obvious. Her blood pressure had remained stable throughout the transfer process and she received a couple of liters of fluid en route. After she was here for a few minutes, her blood pressure dropped down into the 60s. She received aggressive fluid hydration in fact is up to about her 8 L now. She also was started on Levophed drip and ultimately her pressure has responded somewhat and she has started to make a bit of urine. Currently, she remains intubated. She has had no sedation since her intubation, yet she is still not responsive. Her is at the bedside and provided majority of the history above. REVIEW OF SYSTEMS: Unobtainable. The patient's reports that yesterday , she appeared to be fine other than the constipation. He also says that today, she was apparently doing well enough in order to prepare some food for him for the evening. PAST MEDICAL HISTORY: As noted above, significant for anxiety, depression, scoliosis, and peripheral neuropathy. He says she does have a seizure disorder , but has not had seizures in a long while. SURGICAL HISTORY: Hysterectomy, appendectomy, and prior admissions for clinical depression. ALLERGIES: NONE. CURRENT MEDICATIONS: 1. Melatonin 10 mg daily. 2. Ropinirole 2 mg daily. 3. Vistaril 50 mg daily. 4. Baclofen 10 mg daily. 5. Gabapentin 800 mg daily. 6. Tramadol 50 mg p.r.n. 7. Trazodone 150 mg daily p.r.n. 8. Lisinopril 20 mg daily. 9. Citalopram 40 mg daily. 10. Clonazepam 2 mg daily. 11. Tylenol 500 mg p.r.n. 12. Potassium gluconate 550 mg, dosing regimen not known. PHYSICAL EXAMINATION: VITAL SIGNS: BP got as low as 60/35 in the emergency department with a pulse of 63, respirations 12, O2 saturations were 97% on the ventilator. Most recent vitals , BP 100/62, pulse 87, respirations 20, temperature 92.8 with a central Almeida catheter thermometer. GENERAL APPEARANCE: The patient is nonresponsive. She is being mechanically respirated. She did briefly try to open her eyes very slightly, but that has not recurred. HEENT: The patient's pupils are somewhat constricted and fixed. There was a brief moment when the patient's left pupil became very dilated and unresponsive; however, that appears to have resolved now and they are back to fixed and symmetric. She has oral airway. NECK: Supple and symmetric. HEART: Regular rate and rhythm without murmurs, gallops, or rubs. LUNGS: Coarse with upper airway rhonchi bilaterally with fair air exchange. ABDOMEN: Soft, nondistended. Bowel sounds are diminished. There is no hepatosplenomegaly. EXTREMITIES: There is no cyanosis, clubbing, or edema. She actually has pretty good peripheral pulses. NEUROLOGIC: Again, the patient is not responding to external stimuli. LABORATORY DATA: White count 22.8, hemoglobin 11.1, platelets 345, 40 neutrophils, 27 bands, 13 lymphocytes. ABG; pH of 7.18, pCO2 is 36.5, pO2 is 106.9, hematocrit is 26, hemoglobin is 9 on the ABG. Chemistry; sodium 141, potassium 3.1, chloride 114, CO2 of 14, BUN 18, creatinine is 1.89, glucose 116, lactic acid 3.8, calcium 7.3, AST 57, ALT 24, alkaline phosphatase 148, total serum protein is 4.8, albumin 2.8, globulin 2.0. Urinalysis; turbid, positive proteins and glucose, white cells 4 to 6, red cells 21 to 50. Drug screen was positive for opiates. IMAGING STUDIES: Chest x-ray, minimal patchy density in the left lung base, possibly atelectasis developing pneumonia or aspiration pneumonitis with the ET tube in place and NG tube in place. CT of the brain negative. IMPRESSION AND PLAN: 1. Shock. This appears to be septic shock given the patient's white count and significant left shift. She has required massive fluid resuscitation. She has received vancomycin and Zosyn in the emergency department. She is currently on Levophed drip. She will be receiving hydrocortisone IV. She will be admitted to the ICU and case was discussed with Dr. Garrison. The patient's was at the bedside. He has been made aware that the patient may have suffered significant hypoxic and hypotensive injury. Currently, she is not demonstrating much central neural activity and has been on no significant sedation. We will need to continue to monitor. 2. Probable aspiration. The patient was found lying back on her toilet with emesis in her mouth, neck, and chest area. It appears as though she was likely having the adverse reaction from the Ex-Lax that he had described her having previously with use causing some vomiting. It is likely that is the source of her event and likely had some aspiration with hypoxia, and pneumonitis causing the white count and left shift. We will continue with vancomycin, Zosyn, cefepime, and ventilatory support. 3. Possible anoxic and hypotensive injury of the brain, possibly other organs including the kidneys. We will continue to have some monitor. 4. Severe acidosis secondary to possible sepsis or hypoxia, have increased her ventilator rate to 20. We will ensure that her potassium levels are better before we consider bicarb drip. 5. Acute renal insufficiency. The patient's prior labs indicated a GFR in the 40s and 50s most recently, she is now 27 and likely due to hypotension, she has received adequate fluid resuscitation. We will continue to monitor. 6. Intermittent nonsustained ventricular tachycardia. The patient is currently on an amiodarone drip. She has no history of significant cardiac issues and in fact had echocardiogram about a year ago, which was essentially normal. Again, I suspect this is due to possible anoxic injury. We will consult Cardiology. 7. Elevated troponin, likely type 2 [id number] myocardial infarction secondary to hypoxia and hypotension. We will continue to trend troponins. 8. Elevated liver enzymes, likely shock liver secondary to hypotensive episode. 9. History of anxiety and depression. It does not sound like the patient was in the midst of a significant episode of depression, sounds like it was well compensated. 10. History of peripheral neuropathy. The patient was on several medications, which could have potentially contributed to some of her symptoms, although unlikely at this juncture. 11. History of seizure disorder. She was on clonazepam for this. Unclear if this might have been pseudoseizures given her history of significant anxiety and depression. We will continue to monitor, trying to avoid any additional sedation until she proves need so that we can continue to monitor her neuro function. Time spent in critical care was 45 minutes. Job ID: [id number] [facility]
[2019-01-21 00:25] LABS: Critical Call Chem Troponin I RESULT DECREASING; Troponin I 0.379 ng/mL (< 0.028)
[2019-01-21] MEDS: Piperacillin/Tazobactam 3.375 GM in Sodium Chloride 0.9% 100 ML IVPB SCH ×3 (05:02→17:18)
[2019-01-21] MEDS: Hydrocortisone Sod Succ/PF 100 mg/2 ml Vial IVP SCH ×3 (05:03→17:19)
[2019-01-21 05:32] LABS: #Lymphocytes 0.9 thou/uL (1.20-3.40); #Neutrophils 8.5 thou/uL (1.40-6.50); %Basophils 0.3 % (0.0-1.0); %Eosinophils 0.1 % (0.0-10.0); %Lymphocytes 8.9 % (21.0-51.0); %Monocytes 9.4 % (0.0-10.0); %Neutrophils 81.4 % (42.0-75.0); Hemoglobin 11.7 g/dL (12.0-16.0); Mean Corpuscular HGB CONC 34.3 g/dL (32.0-36.0); Mean Corpuscular Hemoglobin 30.8 pg (27.0-31.0); Mean Corpuscular Volume 89.9 fL (78.0-98.0); Mean Platelet Volume 8.1 fL (7.4-10.4); Platelet Count 312 thou/uL (130-400); RBC Distribution Width 11.4 % (11.5-14.5); Red Blood Cell (RBC) Count 3.81 mill/uL (4.20-5.40); White Blood Cell (WBC) Count 10.5 thou/uL (4.8-10.8)
[2019-01-21 05:47] LABS: ALT (SGPT) 36 U/L (8-55); AST (SGOT) 87 U/L (5-34); Albumin 2.9 g/dL (3.5-5.0); Alkaline Phosphatase 116 U/L (40-110); Anion Gap 10 mmol/L (10-20); BUN (Urea Nitrogen) 20 mg/dL (9.8-20.1); Bilirubin, Total 0.4 mg/dL (0.2-1.2); Calc. Creatinine Clearance 47 mL/min (70-130); Calcium 7.8 mg/dL (7.8-10.44); Carbon Dioxide 13 mmol/L (22-29); Chloride 121 mmol/L (98-107); Estimated GFR-MDRD 38; Globulin 2.1 g/dL (2.4-3.5); Glucose 187 mg/dL (70-105); Potassium 4.3 mmol/L (3.5-5.1); Sodium 140 mmol/L (136-145)
--- NOTE | 2019-01-21 07:06 | PDOC.PULCN ---
Pulmonology Consult: HPI - Date of Consult Date: 01/21/19 Time: 07:00 - Consult Details Reason for Consult: Acute respiratory failure Requesting Physician: Bay Contreras MD - History of Present Illness HPI: YIN MORA is a 58 year-old F who was found unconscious at home by her . She was on the toilet with an emesis bucket in her lap. Her reports she was apnic and unresponsive. He started mouth to mouth and called EMS. Per EMS, she was intubated at the scene and brought to the ER. Her reports she had told him she fell twice earlier that day. In addition, he reports she had been using laxatives for her constipation and told him she had responded poorly to them. He report her having a history of seizures and peripheral neuropathy. ER care -8L NS at the time of admission -Left subclavian central line -Started on levophed -Hydrocortisone 100mg -Amiodaron bolus of 300mg and then started on an amiodaron drip 1mg/min -Zosyn 4.5g -Vancomycin 1g -Glucagon 1mg -Calcium chloride 1 amp -Epinephrine 30 mcg Pulmonology Consult: ROS - Review of Systems ROS unobtainable: due to mental status (HPI gathered largely from ER, hospitalist records) Pulmonology Consult: PMH Source: family, nurse, other Past Medical History: Anxiety, depression, scoliosis, peripheral neurolgia, hx of seizure disorder, HTN - Family History Pertinent family history: Sibling had LA - Social History Smoking Status: Never smoker Alcohol Use: none Drug Use History: none Living Situation: Pulmonology Consult: Meds - Medications MAR Reviewed: Yes Medications: Current Medications Acetaminophen (Tylenol) 650 mg DE Q4H PRN PRN Reason: Headache/Fever/Mild Pain (1-3) Enoxaparin Sodium (Lovenox) 40 mg SC 0900 YOLANDA Famotidine (Pepcid) 20 mg SLOW IVP QPM YOLANDA Hydrocortisone Sodium Succinate (Solu-Cortef) 100 mg IVP Q6HR YOLANDA Last Admin: 01/21/19 05:03 Dose: 100 mg Norepinephrine Bitartrate 8 mg (/ Dextrose/Water) 250 mls @ 0 mls/hr IVPB INF YOLANDA; Protocol Piperacillin Sod/Tazobactam (Sod 3.375 gm/ Sodium Chloride) 100 mls @ 200 mls/ hr IVPB Q6HR YOLANDA Last Admin: 01/21/19 05:02 Dose: 100 mls Vancomycin HCl 1 gm/ Device 200 mls @ 200 mls/hr IVPB Q24HR YOLANDA Fentanyl Citrate 2,000 mcg/ (Sodium Chloride) 100 mls @ 0 mls/hr IV INF YOLANDA; Protocol Stop: 02/19/19 19:17 Fentanyl Citrate (Fentanyl Bolus) 250 mls @ 0 mls/hr IVPB PRN PRN PRN Reason: Breakthrough pain/agitation Stop: 02/19/19 19:17 Cefepime HCl 1 gm/ Sodium (Chloride) 100 mls @ 200 mls/hr IVPB Q24HR YOLANDA Amiodarone HCl 450 mg/Miscellaneous Medication 1 each/ Dextrose/Water 259 mls @ 0 mls/hr IVPB INF YOLANDA; Protocol Lorazepam (Ativan) 2 mg SLOW IVP Q1H PRN PRN Reason: Breakthrough agitation Stop: 02/19/19 19:17 Miscellaneous Medication (Pharmacy To Dose) 1 each IVPB PRN PRN PRN Reason: Pharmacy to dose Miscellaneous Medication (Pharmacy To Dose) 1 each IVPB PRN PRN PRN Reason: Pharmacy to dose Morphine Sulfate (Morphine) 2 mg SLOW IVP Q1H PRN PRN Reason: BREAKTHROUGH PAIN/Agitation Stop: 02/19/19 19:17 Discontinue Previous Narcotic Pain Medications And Benzodiazepines 1 each FS .ONE YOLANDA Stop: 02/19/19 19:17 Propofol (Diprivan) 1,000 mg IV INF PRN; Protocol PRN Reason: TO ACHIEVE GOAL RASS Stop: 02/19/19 19:17 Last Admin: 01/20/19 23:13 Dose: 1,000 mg Propofol (Diprivan Bolus) 20 mg IV Q5MIN PRN PRN Reason: BREAKTHROUGH AGITATION Stop: 02/19/19 19:17 Sodium Chloride (Flush - Normal Saline) 10 ml IVF Q12HR YOLANDA Sodium Chloride (Flush - Normal Saline) 10 ml IVF PRN PRN PRN Reason: Saline Flush - Allergies Allergies/Adverse Reactions: Allergies Allergy/AdvReac Type Severity Reaction Status Date / Time No Known Drug Allergies Allergy Verified 01/09/18 17:28 Pulmonology Consult: PE - Physical Exam Deviation from normal: GCS [id number], sedated HEENT: moist MMs Deviation from normal: Pupils with slight reactivity to light but slugish Neck: no JVD Cardiovascular: no significant murmur Deviation from normal: Bradycardic, regulular rate Focused Respiratory Location: rales: Right, Left, Upper, Lower (Coarse) Gastrointestinal: soft, no distention, positive bowel sounds Deviation from normal: OG tube in place Musculoskeletal: no edema (Cool extremities, pulses not appreciated, cap refill less than 2 seconds) Deviation from normal: Sedated, no clonus, GCS as above Skin: cap refill <2 seconds Pulmonology Consult: Results - Labs Result Diagrams: 01/21/19 04:36 01/21/19 04:36 - ABG Interpretation Attestation: I reviewed and interpreted this ABG. ABG Results: ABG pH 7.30 (7.35-7.45) L 01/20/19 20:25 ABG pCO2 21.4 mmHg (35.0-45.0) L* 01/20/19 20:25 ABG O2 Sat Calc/Angelina 97.1 % (94.0-98.0) 01/20/19 20:25 ABG Base Excess -14.1 mEq/L (-2.0 to +3.0) L 01/20/19 20:25 Interpretation: metabolic acidosis (with respiratory alkalosis) - Radiology Interpretation Chest x-ray Status: image reviewed by me (Left lower lobe densities likely representing atelectasis), report reviewed by me CT scan - head Status: report reviewed by me (Negative for acute intracranial changes) Pulmonology Consult: A/P - Time Time: 50% of the time was spent in coordination of care (as documented) at patient's floor/unit and/or counseling patient. Time with Patient: greater than 50 minutes - Plan Plan: Acute Hypoxic Respiratory Failure -Continue ventilator support -AM labs suggest improving metabolic acidosis with respiratory alkalosis, will consider decreasing minute ventilation Septic shock, likely pulmonary in nature -Adequately fluid resuscitated based on improving urine output -Continue antibiotics, pending blood and urine cultures, deescalated when possible Lactic acidosis -Treatment as above, improving Aspiration pneumonitis vs. pneumonia -Continue antibiotics and ventilator support Metabolic encephalopathy -Secondary to above NSTEMI type 2 -Troponins have peaked at 0.379 -Continue monitoring MARI on CKD3, improving -Continuing following BMP Nonsustained ventricular tachycardia in ER -Pt started on amiodarone drip, no episodes in the ICU Code: Full Prophylaxis: Lovenox, pepcid Fluids: SL
[2019-01-21 07:30] LABS: Actual Bicarbonate (HCO3a) 10.7 mEq/L (22-28); Base Excess (BEa) -11.7 mEq/L (-2.0 to +3.0); Calcium, Ionized 1.17 mmol/L (1.12-1.30); Carboxyhemoglobin (COHb) 1.3 gm% (0.0-3.0); Hemoglobin (Hb) 11.3 g/dL (12.0-16.0); O2 Tension (PaO2) 91.7 mmHg (80.0-100.0); Potassium - ABG Lab 4.16 mmol/L (3.70-5.30); pH, Arterial 7.41 (7.35-7.45)
[2019-01-21 07:34] LABS: CO2 Tension 17.3 mmHg (35.0-45.0)
[2019-01-21 07:35] LABS: ALV-art Gradient 100.575 (0-20); Puncture Site LRA
--- NOTE | 2019-01-21 08:02 | RAD ---
CHEST 1 VIEW: COMPARISON: 01/20/2019. HISTORY: Respiratory distress. Ventilated patient. Aspiration. FINDINGS: Redemonstration of an endotracheal tube, nasogastric tube, and left-sided subclavian central venous c atheter. Normal cardiac silhouette. Pulmonary vessels and hilum are normal. Hazy opacity of the le ft lung base due to pleural effusion with adjacent parenchymal changes. Adequate aeration of the rig ht lung. No pneumothorax. IMPRESSION: 1. Worsening opacification of the left lung base due to pleural and parenchymal changes. Continued surveillance. 2. Stable endotracheal tube and nasogastric tube. 3. Interval placement of a left-sided subclavian central venous catheter, appropriately positioned. POS: [facility]
[2019-01-21] MEDS ORDERED: FLU VACC QS2019-20(6MOS UP)/PF 60 MCG/0.5 ML SYRINGE IM ONE (09:00)
[2019-01-21] MEDS: Enoxaparin Sodium 40 MG/0.4 ML SYRINGE SC SCH (09:44)
[2019-01-21] MEDS: Sodium Chloride 0.9% 1,000 ML IV SCH ×2 (09:47→21:59)
--- NOTE | 2019-01-21 09:56 | PRG ---
DATE OF SERVICE: 01/21/2019 SUBJECTIVE: The patient is sedated, intubated. According to nursing, the patient has been awake and active and requiring a bit of sedation. OBJECTIVE: VITAL SIGNS: Temperature is 98.8, pulse 55, respirations 20, blood pressure 92/56, and O2 sats 98%. Ventilator rate is 20. GENERAL APPEARANCE: Intubated, sedated, nonreactive. HEART: Regular rate and rhythm without murmurs, gallops, or rubs. LUNGS: Congested with some upper rhonchi. ABDOMEN: Soft, nondistended with diminished but present bowel sounds. EXTREMITIES: Have no cyanosis, clubbing, or edema. There is a cast on the right wrist and hand. LABORATORY DATA: White count 10.5, hemoglobin 11.7, and platelets 312. ABG; pH of 7.41, pCO2 of 17.3. Sodium 140, potassium 4.3, chlorides 121, CO2 is 13, BUN 20, creatinine 1.41, glucose 187, AST 87, ALT 36, alkaline phosphatase 116. Troponin peak was 3.81, subsequent 3.79. Albumin 2.9. Chest x-ray this morning shows increasing left basilar opacity concerning for possible pleural and parenchymal changes. IMPRESSION AND PLAN: 1. Septic shock. The patient appears to have possibly aspirated while the vomiting after taking some Ex-Lax to which she had an adverse reaction, continuing with broad-spectrum antibiotics for septic shock. 2. Acute hypoxic respiratory failure. Continue ventilator support secondary to aspiration pneumonitis. Pulmonary/Critical Care following. She remains sedated on Diprivan at the moment. 3. Severe acidosis, improved. ABGs, neutral pH presently. 4. Acute renal insufficiency, improved. She has better urine output. Her numbers are somewhat better today. 5. Hypotension secondary to shock, improved. Pressure remained stable without pressors. 6. Elevated troponins. Suspect [id number] myocardial infarction type 2 secondary to hypoxia and hypotension. We will obtain an echocardiogram. 7. Short runs of nonsustained ventricular tachycardia in the emergency room, suspect due to metabolic issues and acidosis rather than true underlying cardiac issues. We will obtain an echocardiogram. 8. Elevated liver enzymes, likely due to shock liver from hypotension and hypoxia, appears to be stable. 9. Nausea and vomiting. The patient apparently had similar adverse reactions in the past to taking Ex-Lax for constipation according to her . 10. History of peripheral neuropathy, holding medications for now. 11. History of seizure disorder, unclear history on this. She was reportedly on clonazepam in the past. We will hold off on any additional medications for that for now. Job ID: [id number]
--- NOTE | 2019-01-21 10:11 | CON ---
DATE OF CONSULTATION: HISTORY OF PRESENT ILLNESS: Mary Kay Sanon is a 58-year-old female, who apparently was found down at home sitting on the commode with vomitus on the face and the ground. She was hypothermic when she was found. She was intubated, apparently was given ketamine, . When she arrived, she was hypotensive, got 7 L of fluids, eventually was placed on Levophed, transferred to the ICU. For several hours, she was pretty much unresponsive. It was felt she might have sustained some anoxic injury. Apparently last night, she became agitated and was placed on Diprivan this morning. She was on Diprivan, which has been turned off. is at the bedside, who gives adequate history. States is a nonsmoker. Does not drink any alcohol. No substance abuse. PAST MEDICAL HISTORY: Pertinent for depression, hypertension, recent visual problems with fall, dizziness, chronic pain. History of apparent seizure activity in the past, none recently. Recent cataract surgery. PAST SURGICAL HISTORY: Hysterectomy and appendix. HOME MEDICATIONS: 1. Melatonin 10. 2. Ropinirole 2 mg. 3. Vistaril 50. 4. Baclofen 10. 5. Gabapentin 800. 6. Tramadol 50. 7. Trazodone 150. 8. Lisinopril 20. 9. Celexa 40. 10. Clonazepam 2. 11. Tylenol. 12. Potassium. PHYSICAL EXAMINATION: GENERAL: She is still unresponsive. VITAL SIGNS: Pulse 53, blood pressure 86/40, saturations are 93%, respirations 14. CHEST: Decreased breath sounds. No wheezing. CARDIAC: Normal S1 and S2. No gallops. ABDOMEN: Soft. LABORATORY DATA: White count 10,000, H and H 11 and 34, platelet count is normal. PO2 is 91, pCO2 is 70, pH 7.41, rate of 20, 30%. X-ray shows a left-sided infiltrate. Creatinine is 1.4. Troponin is slightly elevated. Cultures are so far negative. IMPRESSION: 1. Metabolic encephalopathy. 2. History of seizure activity. 3. Recent fall from dizziness, etiology unclear. 4. Hypothermia. 5. Left-sided infiltrate. 6. Mild azotemia. 7. Depression. PLAN: Continue antibiotics. Continue steroids. She has recurrent ventricular tachycardia. She was started on amiodarone. Echo was ordered. We will follow. 45 minutes of Critical Care time. Job ID: [id number]
--- NOTE | 2019-01-21 14:38 | EEG ---
Referring Physician: Elton MEIER EEG # [id number] TEST TYPE: ROUTINE PORTABLE INPATIENT REPORT: AN EEG USING THE INTERNATIONAL TEN-TWENTY SYSTEM OF ELECTRODE PLACEMENT WAS PERFORMED. The best waking background is a 6-7 hertz theta frequency. When the patient is more drowsy she develops higher amplitude 4-5 hertz frequency slowing. No epileptiform features were seen. Photic stimulation was unremarkable. IMPRESSION: THIS IS AN ABNORMAL STUDY FOR THE FINDINGS OF DIFFUSE SLOWING CONSISTENT WITH A DIFFUSE ENCEPHALOPATHIC PROCESS. NO EPILEPTIFORM FEATURES ARE PRESENT. Convey[employer] Bakery Worker: DANIELLE Sprinkler Driver: EEG.MARIE WALLACE
[2019-01-21] MEDS: Amiodarone 450 MG, Admixture Fee 1 EACH in Dextrose 5% in Water 250 ML IVPB SCH (15:01)
[2019-01-21] MEDS: Morphine 2 MG/ML SYRINGE SLOW IVP PRN ×2 (17:27→22:59)
[2019-01-21] MEDS ORDERED: Vancomycin HCl 1 GM in Premix Bag 1 BAG IVPB SCH (18:00)
[2019-01-21] MEDS: Cefepime 1 GM in Sodium Chloride 0.9% 100 ML IVPB SCH (21:49)
[2019-01-21] MEDS: Famotidine/PF 20 mg/2ml Vial SLOW IVP SCH (22:00)
[2019-01-21] MEDS: Lorazepam 2 MG/ML VIAL SLOW IVP PRN (23:01)
[2019-01-22] MEDS: Piperacillin/Tazobactam 3.375 GM in Sodium Chloride 0.9% 100 ML IVPB SCH ×2 (00:10→05:44)
[2019-01-22] MEDS: Hydrocortisone Sod Succ/PF 100 mg/2 ml Vial IVP SCH ×2 (00:11→05:45)
[2019-01-22] MEDS: Lorazepam 2 MG/ML VIAL SLOW IVP PRN (02:24)
[2019-01-22] MEDS: Propofol 1,000 MG/100 ML VIAL IV PRN (03:05)
[2019-01-22 04:23] LABS: #Lymphocytes 0.8 thou/uL (1.20-3.40); #Monocytes 0.8 thou/uL (0.11-0.59); #Neutrophils 8.4 thou/uL (1.40-6.50); %Basophils 0.1 % (0.0-1.0); %Eosinophils 0.1 % (0.0-10.0); %Lymphocytes 8.1 % (21.0-51.0); %Monocytes 8.2 % (0.0-10.0); %Neutrophils 83.5 % (42.0-75.0); Hemoglobin 10.8 g/dL (12.0-16.0); Mean Corpuscular HGB CONC 34.6 g/dL (32.0-36.0); Mean Corpuscular Volume 89.8 fL (78.0-98.0); Mean Platelet Volume 8.3 fL (7.4-10.4); Platelet Count 218 thou/uL (130-400); RBC Distribution Width 11.8 % (11.5-14.5); Red Blood Cell (RBC) Count 3.48 mill/uL (4.20-5.40); White Blood Cell (WBC) Count 10.1 thou/uL (4.8-10.8)
[2019-01-22 04:39] LABS: Anion Gap 10 mmol/L (10-20); BUN (Urea Nitrogen) 17 mg/dL (9.8-20.1); Calc. Creatinine Clearance 54 mL/min (70-130); Calcium 7.7 mg/dL (7.8-10.44); Carbon Dioxide 17 mmol/L (22-29); Chloride 119 mmol/L (98-107); Estimated GFR-MDRD 44; Glucose 138 mg/dL (70-105); Potassium 3.7 mmol/L (3.5-5.1); Sodium 142 mmol/L (136-145)
[2019-01-22] MEDS: Sodium Chloride 0.9% 1,000 ML IV SCH ×2 (05:45→09:55)
[2019-01-22] MEDS: Amiodarone 450 MG, Admixture Fee 1 EACH in Dextrose 5% in Water 250 ML IVPB SCH ×2 (05:45→21:40)
[2019-01-22 06:58] LABS: Base Excess (BEa) -10.9 mEq/L (-2.0 to +3.0); CO2 Tension 28.5 mmHg (35.0-45.0); Calcium, Ionized 1.15 mmol/L (1.12-1.30); Carboxyhemoglobin (COHb) 1.2 gm% (0.0-3.0); O2 Tension (PaO2) 92.3 mmHg (80.0-100.0); Potassium - ABG Lab 3.77 mmol/L (3.70-5.30); pH, Arterial 7.31 (7.35-7.45)
[2019-01-22 07:00] LABS: Puncture Site LRA
[2019-01-22 07:01] LABS: ALV-art Gradient 85.975 (0-20)
[2019-01-22] MEDS ORDERED: DC Sedation Protocol FS ONE (08:34)
--- NOTE | 2019-01-22 09:08 | PRG ---
DATE OF SERVICE: 01/22/2019 SUBJECTIVE: This morning, she is awake and responsive. Sedation has been withheld. She was extubated. OBJECTIVE: VITAL SIGNS: Saturations are 98% on 2 L, respirations 16, pulse 90, and blood pressure 129/88. GENERAL: She is complaining of pain in the right hand, where she has had a fracture. Orthopedic Surgery being consulted. CHEST: Decreased breath sounds without any wheezing. CARDIAC: Normal S1 and S2. No gallops. ABDOMEN: No masses. ASSESSMENT: Metabolic encephalopathy, etiology unclear. Respiratory failure, hypotension, and azotemia. PLAN: Post extubation, PT and supportive care. Adjust antibiotics. Consult Cardiology. We will follow. One-half hour of critical care time. Job ID: [id number]
[2019-01-22] MEDS: Enoxaparin Sodium 40 MG/0.4 ML SYRINGE SC SCH (09:56)
[2019-01-22] MEDS ORDERED: Morphine 2 MG/ML SYRINGE SLOW IVP PRN (10:22)
--- NOTE | 2019-01-22 10:25 | RAD ---
CHEST ONE VIEW: COMPARISON: 01/21/2019 FINDINGS: Life support tubes remain in place. Minimal pleural and parenchymal opacity changes in the left base but overall stable. Mild vascular congestion. IMPRESSION: Overall stable chest. POS: [facility]
[2019-01-22] MEDS ORDERED: Citalopram 20 MG TAB PO SCH (10:30)
[2019-01-22] MEDS ORDERED: Gabapentin 300 MG CAP PO SCH (10:30)
[2019-01-22] MEDS ORDERED: Morphine 4 MG/ML VIAL ONE (10:37)
[2019-01-22] MEDS: traMADol HCl 50 MG TAB PO PRN ×2 (18:10→23:58)
[2019-01-22] MEDS ORDERED: Non-Formulary Item 1 EACH (Gabapentin [Gabapentin] 600 MG) PO SCH (21:00)
[2019-01-22] MEDS: Famotidine/PF 20 mg/2ml Vial SLOW IVP SCH (21:40)
[2019-01-22] MEDS: Gabapentin 300 MG CAP PO SCH (21:40)
[2019-01-22] MEDS: Cefepime 1 GM in Sodium Chloride 0.9% 100 ML IVPB SCH (21:41)
[2019-01-22] MEDS: Melatonin 3 MG TAB PO PRN (21:58)
--- NOTE | 2019-01-22 22:29 | PDOC.HOSPP ---
- Subjective Subjective: Doing better. Reported generalized pain to the nurse. Breathing better. Still has some cough. - Objective Vital Signs & Weight: Vital Signs (12 hours) Temp Pulse Pulse BP BP Pulse Ox 01/22/19 20:00 93 L 01/22/19 19:00 98.6 F 01/22/19 17:19 82 80 162/110 H 158/102 H 01/22/19 17:00 98.6 F 01/22/19 12:00 98.2 F 95 Weight Admit Weight 153 lb Weight 159 lb 2.78 oz Most Recent Monitor Data Heart Rate from ECG 73 NIBP 129/75 NIBP BP-Mean 93 Respiration from ECG 19 SpO2 92 I&O: 01/21/19 01/22/19 01/23/19 06:59 06:59 06:59 Intake Total 1102.6 2930 572.5 Output Total 1013 1425 848 Balance 89.6 1505 -275.5 Result Diagrams: 01/23/19 03:52 01/23/19 03:52 Hospitalist ROS - Medication Medications: Active Medications Generic Name Dose Route Start Last Admin Trade Name Freq PRN Reason Stop Dose Admin Enoxaparin Sodium 40 mg 01/21/19 09:00 01/22/19 09:56 Lovenox SC 40 mg 0900 YOLANDA Administration Famotidine 20 mg 01/21/19 21:00 01/22/19 21:40 Pepcid SLOW IVP 20 mg QPM YOLANDA Administration Gabapentin 600 mg 01/22/19 21:00 01/22/19 21:40 Neurontin PO 600 mg BID YOLANDA Administration Cefepime HCl 1 gm/ Sodium 100 mls @ 200 mls/hr 01/21/19 21:00 01/22/19 21:41 Chloride IVPB 100 mls Q24HR YOLANDA Administration Amiodarone HCl 450 mg/ 259 mls @ 0 mls/hr 01/21/19 02:45 01/22/19 21:40 Miscellaneous Medication 1 IVPB 259 mls each/ Dextrose/Water INF YOLANDA Administration Protocol As Directed Sodium Chloride 1,000 mls @ 50 mls/hr 01/22/19 08:39 01/22/19 09:55 Normal Saline 0.9% IV 1,000 mls .Q20H YOLANDA Administration Melatonin 3 mg 01/22/19 21:23 01/22/19 21:58 Melatonin PO 3 mg HS PRN Administration Insomnia Propofol 1,000 mg 01/20/19 19:17 01/22/19 03:05 Diprivan IV 02/19/19 19:17 1,000 mg INF PRN Administration TO ACHIEVE GOAL RASS Protocol Sodium Chloride 10 ml 01/21/19 09:00 01/22/19 09:57 Flush - Normal Saline IVF Not Given Q12HR YOLANDA Tramadol HCl 50 mg 01/22/19 10:00 01/22/19 18:10 Ultram PO 50 mg Q6H PRN Administration Moderate to Severe Pain (6-10) - Exam General Appearance: NAD, awake alert Heart: RRR, no murmur, no gallops, no rubs, normal peripheral pulses Respiratory: CTAB, no wheezes, no ronchi, normal chest expansion, no tachypnea, normal percussion, rales (diffuse.) Gastrointestinal: soft, non-tender, non-distended, normal bowel sounds, no palpable masses, no hepatomegaly, no splenomegaly, no bruit Extremities: no cyanosis, 1+ LE edema (diffusely) Skin: normal turgor Musculoskeletal: generalized weakness Psychiatric: flat affect Hosp A/P (1) Aspiration pneumonitis Code(s): J69.0 - PNEUMONITIS DUE TO INHALATION OF FOOD AND VOMIT Status: Acute (2) Hypotension Status: Acute (3) Anxiety and depression Code(s): F41.9 - ANXIETY DISORDER, UNSPECIFIED; F32.9 - MAJOR DEPRESSIVE DISORDER, SINGLE EPISODE, UNSPECIFIED Status: Chronic (4) Hypokalemia Code(s): E87.6 - HYPOKALEMIA Status: Resolved (5) NSVT (nonsustained ventricular tachycardia) Code(s): I47.2 - VENTRICULAR TACHYCARDIA Status: Acute (6) Myocardial infarction Code(s): I21.9 - ACUTE MYOCARDIAL INFARCTION, UNSPECIFIED Status: Acute Qualifiers: Myocardial infarction type: type 2 Qualified Code(s): I21.A1 - Myocardial infarction type 2 - Plan Stopped the Amio gtt after talking with cardiology. Echo normal. Renal function improving. Respiratory status much improved. Continue NC oxygen, prn nebs. Continue abx but de-escalated to Omnicef. Increase activity. NSTEMI type 2 due to hypoxia and hypotension.
[2019-01-22] MEDS ORDERED: traZODone HCl 150 MG TAB PO SCH (23:00)
[2019-01-23] MEDS: Sodium Chloride 0.9% 1,000 ML IV SCH (04:35)
[2019-01-23 04:47] LABS: Anion Gap 11 mmol/L (10-20); BUN (Urea Nitrogen) 16 mg/dL (9.8-20.1); Calc. Creatinine Clearance 63 mL/min (70-130); Calcium 7.7 mg/dL (7.8-10.44); Carbon Dioxide 15 mmol/L (22-29); Chloride 119 mmol/L (98-107); Estimated GFR-MDRD 51; Glucose 84 mg/dL (70-105); Sodium 142 mmol/L (136-145)
[2019-01-23 04:50] LABS: #Lymphocytes 1.9 thou/uL (1.20-3.40); #Monocytes 0.9 thou/uL (0.11-0.59); #Neutrophils 6.7 thou/uL (1.40-6.50); %Basophils 0.1 % (0.0-1.0); %Eosinophils 0.3 % (0.0-10.0); %Lymphocytes 20.1 % (21.0-51.0); %Monocytes 9.5 % (0.0-10.0); %Neutrophils 69.9 % (42.0-75.0); Hemoglobin 9.4 g/dL (12.0-16.0); Mean Corpuscular HGB CONC 34.5 g/dL (32.0-36.0); Mean Corpuscular Volume 89.7 fL (78.0-98.0); Mean Platelet Volume 7.9 fL (7.4-10.4); Platelet Count 202 thou/uL (130-400); RBC Distribution Width 11.7 % (11.5-14.5); Red Blood Cell (RBC) Count 3.02 mill/uL (4.20-5.40); White Blood Cell (WBC) Count 9.5 thou/uL (4.8-10.8)
[2019-01-23] MEDS ORDERED: Potassium Chloride 20 MEQ TAB PO SCH (08:00)
[2019-01-23] MEDS: Citalopram 20 MG TAB PO SCH (08:33)
[2019-01-23] MEDS: Enoxaparin Sodium 40 MG/0.4 ML SYRINGE SC SCH (08:33)
[2019-01-23] MEDS: Gabapentin 300 MG CAP PO SCH ×2 (08:33→20:24)
--- NOTE | 2019-01-23 09:25 | PRG ---
DATE OF SERVICE: 01/23/2019 SUBJECTIVE: This morning, she is sitting on the side of bed, in no distress. Still having some pain. OBJECTIVE: VITAL SIGNS: Saturations 95% on 2 L, respirations 18, pulse 88, blood pressure 150/79. CHEST: Minimal wheezing. CARDIAC: Normal S1 and S2. No gallops or masses. LABORATORY DATA: Unremarkable. IMAGING STUDIES: X-ray shows minimal amount of fluid. ASSESSMENT: 1. Respiratory failure. 2. Encephalopathy. 3. Normal ejection fraction. 4. Chronic pain. 5. Depression. PLAN: Omnicef for presumed aspiration. EEG was negative for seizure activity. Continue pain relief, PT. She can be transferred out of the ICU. Pulmonary will follow. Job ID: [id number]
--- NOTE | 2019-01-23 10:03 | RAD ---
PORTABLE CHEST: COMPARISON: Prior day's exam. HISTORY: Respiratory distress. FINDINGS: Endotracheal tube has been removed. The patient has developed increased alveolar lung changes mainly in a perihilar distribution compatible with pulmonary edema. Left subclavian line is unchanged. IMPRESSION: Worsened pulmonary edema with much more prominent parahilar alveolar lung changes. POS: TPC
[2019-01-23] MEDS: Cefdinir 300 MG CAP PO SCH ×2 (11:33→20:23)
[2019-01-23 15:22] VITALS: BMI 27.3
--- NOTE | 2019-01-23 17:15 | PDOC.HOSPP ---
- Subjective Subjective: Continues to improve. Was up in chair for four hours today. Continues to report generalized pain. Says that is normal for her. - Objective Vital Signs & Weight: Vital Signs (12 hours) Temp Pulse Pulse Pulse Resp BP BP 01/23/19 13:41 90 21 H 01/23/19 12:00 98.6 F 01/23/19 09:32 88 90 170/84 H 153/88 H 01/23/19 08:00 98.1 F 01/23/19 07:18 01/23/19 07:16 88 22 H Pulse Ox Pulse Ox Pulse Ox 01/23/19 13:41 99 01/23/19 12:00 01/23/19 09:32 96 100 01/23/19 08:00 97 01/23/19 07:18 95 01/23/19 07:16 95 Weight Admit Weight 153 lb Weight 159 lb 2.78 oz Most Recent Monitor Data Heart Rate from ECG 90 NIBP 160/77 NIBP BP-Mean 104 Respiration from ECG 25 SpO2 91 I&O: 01/22/19 01/23/19 01/24/19 06:59 06:59 06:59 Intake Total 2930 2679.5 700 Output Total 1425 1548 910 Balance 1505 1131.5 -210 Result Diagrams: 01/23/19 03:52 01/23/19 03:52 Hospitalist ROS - Medication Medications: Active Medications Generic Name Dose Route Start Last Admin Trade Name Freq PRN Reason Stop Dose Admin Albuterol/Ipratropium 3 ml 01/22/19 21:19 01/23/19 07:16 Duoneb NEB 3 ml Q4H PRN Administration SOB/WHEEZE Albuterol/Ipratropium 3 ml 01/23/19 13:00 01/23/19 13:41 Duoneb NEB 3 ml [id number] YOLANDA Administration Cefdinir 300 mg 01/23/19 09:00 01/23/19 11:33 Omnicef PO 01/28/19 09:01 300 mg BID YOLANDA Administration Citalopram Hydrobromide 20 mg 01/23/19 09:00 01/23/19 08:33 Celexa PO 20 mg DAILY YOLANDA Administration Enoxaparin Sodium 40 mg 01/21/19 09:00 01/23/19 08:33 Lovenox SC 40 mg 0900 YOLANDA Administration Famotidine 20 mg 01/21/19 21:00 01/22/19 21:40 Pepcid SLOW IVP 20 mg QPM YOLANDA Administration Gabapentin 600 mg 01/22/19 21:00 01/23/19 08:33 Neurontin PO 600 mg BID YOLANDA Administration Melatonin 3 mg 01/22/19 21:23 01/22/19 21:58 Melatonin PO 3 mg HS PRN Administration Insomnia Propofol 1,000 mg 01/20/19 19:17 01/22/19 03:05 Diprivan IV 02/19/19 19:17 1,000 mg INF PRN Administration TO ACHIEVE GOAL RASS Protocol Sodium Chloride 10 ml 01/21/19 09:00 01/23/19 11:33 Flush - Normal Saline IVF 10 ml Q12HR YOLANDA Administration Tramadol HCl 50 mg 01/22/19 10:00 01/22/19 23:58 Ultram PO 50 mg Q6H PRN Administration Moderate to Severe Pain (6-10) - Exam General Appearance: NAD, awake alert Heart: RRR, no murmur, no gallops, no rubs, normal peripheral pulses Respiratory: rales (Diffusely mild and improved with cough.) Gastrointestinal: soft, non-tender, non-distended, normal bowel sounds, no palpable masses, no hepatomegaly, no splenomegaly, no bruit Extremities: 1+ LE edema Neurological: no focal deficits Musculoskeletal: generalized weakness Psychiatric: normal behavior, flat affect Hosp A/P (1) Aspiration pneumonitis Code(s): J69.0 - PNEUMONITIS DUE TO INHALATION OF FOOD AND VOMIT Status: Acute (2) Hypotension Status: Acute (3) Anxiety and depression Code(s): F41.9 - ANXIETY DISORDER, UNSPECIFIED; F32.9 - MAJOR DEPRESSIVE DISORDER, SINGLE EPISODE, UNSPECIFIED Status: Chronic (4) Hypokalemia Code(s): E87.6 - HYPOKALEMIA Status: Resolved (5) NSVT (nonsustained ventricular tachycardia) Code(s): I47.2 - VENTRICULAR TACHYCARDIA Status: Acute (6) Myocardial infarction Code(s): I21.9 - ACUTE MYOCARDIAL INFARCTION, UNSPECIFIED Status: Acute Qualifiers: Myocardial infarction type: type 2 Qualified Code(s): I21.A1 - Myocardial infarction type 2 - Plan Stopped the Amio gtt after talking with cardiology. Echo normal. Renal function improving. Respiratory status much improved. Continue NC oxygen, prn nebs. Continue abx but de-escalated to Omnicef. Increase activity. NSTEMI type 2 due to hypoxia and hypotension. Transfer to [facility]
[2019-01-23] MEDS: Famotidine/PF 20 mg/2ml Vial SLOW IVP SCH (20:24)
[2019-01-23] MEDS: traMADol HCl 50 MG TAB PO PRN (20:24)
[2019-01-23] MEDS: Melatonin 3 MG TAB PO PRN (20:28)
[2019-01-24] MEDS: HYDROcodone/Acetaminophen 10/325 mg Tablet PO PRN ×5 (01:07→22:52)
[2019-01-24] MEDS: Citalopram 20 MG TAB PO SCH (08:24)
[2019-01-24] MEDS: Cefdinir 300 MG CAP PO SCH (08:25)
[2019-01-24] MEDS: Enoxaparin Sodium 40 MG/0.4 ML SYRINGE SC SCH (08:25)
[2019-01-24] MEDS: Gabapentin 300 MG CAP PO SCH ×2 (08:25→21:07)
[2019-01-24] MEDS ORDERED: Potassium Chloride 20 MEQ TAB PO SCH ×3 (09:30→15:15)
[2019-01-24 11:18] LABS: Magnesium 1.8 mg/dL (1.6-2.6)
[2019-01-24 11:26] LABS: Phosphorus 1.9 mg/dL (2.3-4.7)
[2019-01-24] MEDS ORDERED: Lisinopril 5 MG TAB PO SCH (12:00)
[2019-01-24] MEDS: K-Phos Neutral 250 MG TAB PO SCH ×2 (12:42→17:50)
[2019-01-24] MEDS ORDERED: Magnesium 2 GM/50 ML 2 GM in Premix Bag 1 BAG IVPB SCH ×2 (15:00→15:15)
[2019-01-24] MEDS ORDERED: Furosemide 20 MG/2 ML VIAL SLOW IVP SCH (15:15)
--- NOTE | 2019-01-24 15:47 | PRG ---
DATE OF SERVICE: 01/24/2019 SERVICE: Pulmonary Medicine. INTERVAL HISTORY: Overall, the patient says her respiratory status is stable. She denies any current fevers, chills, cough, or sputum production. She has been having some loose stools. We are in the process of collecting a sample right now, so that we can send it off for analysis. If there is no infection there, we will certainly provide her with a little Imodium. Otherwise, there has been no interval change to her condition. PHYSICAL EXAMINATION: VITAL SIGNS: Afebrile, pulse 96, blood pressure 179/97, respirations 20, and saturation 93% on 3 L nasal cannula. GENERAL: The patient is awake and alert, in no apparent distress. LUNGS: Decent air entry. Crackles are present dependently. Minimal rhonchi are present. HEART: Normal rate, regular. ABDOMEN: Soft, nontender, and nondistended. Bowel sounds are positive. MUSCULOSKELETAL/EXTREMITIES: No cyanosis or clubbing. There is trace to 1+ pitting in bilateral lower extremities. NEUROLOGIC: Grossly nonfocal. LABORATORY DATA: Phosphorus 1.9, magnesium 1.8. Blood cultures x2 and urine culture are unremarkable. IMAGING DATA: Chest x-ray demonstrates bilateral pulmonary edema. There is likely small pleural effusions present bilaterally. Cephalization is certainly present. Widened carinal angle is suggestive of left atrial dilation. ASSESSMENT: 1. Acute hypoxic respiratory failure. 2. Encephalopathy, improving. 3. Acute on chronic diastolic heart failure. 4. Chronic pain. DISCUSSION AND PLAN: We will continue to diurese the patient until she returns to euvolemia. Pulmonary/Critical Care will continue to follow along. I will replace the phosphorus and magnesium today. We will also give her dose of potassium. Repeat laboratories will be performed tomorrow morning. Critical Care will follow for now until she comes off oxygen. Job ID: [id number]
[2019-01-24] MEDS: Saccharomyces boulardii 250 MG CAP PO SCH (21:07)
[2019-01-24] MEDS: Famotidine/PF 20 mg/2ml Vial SLOW IVP SCH (21:08)
[2019-01-24] MEDS: Melatonin 3 MG TAB PO PRN (21:08)
[2019-01-24] MEDS: Loperamide HCl 2 MG CAP PO PRN (22:53)
--- NOTE | 2019-01-24 22:56 | PDOC.HOSPP ---
- Subjective Encounter Date: 01/24/19 Encounter Time: 15:00 Subjective: Patient seen and examined for Resp failure/Sepsis. Diarrhea. Mentation improving. No new complaints. No overnight events - Objective Vital Signs & Weight: Vital Signs (12 hours) Temp Pulse Resp BP BP Pulse Ox 01/24/19 21:00 97.7 F 91 15 158/82 H 94 L 01/24/19 18:57 92 20 01/24/19 17:01 166/98 H 01/24/19 14:35 97.7 F 92 20 177/98 H 93 L 01/24/19 12:57 92 19 01/24/19 12:39 96 177/95 H 01/24/19 11:25 98.5 F 96 20 179/97 H 93 L Weight Admit Weight 153 lb Weight 159 lb 2.78 oz Most Recent Monitor Data Heart Rate from ECG 96 NIBP 156/95 NIBP BP-Mean 115 Respiration from ECG 25 SpO2 93 I&O: 01/23/19 01/24/19 01/25/19 06:59 06:59 06:59 Intake Total 2679.5 1060 1850 Output Total 1548 1740 5345 Balance 1131.5 -680 -1625 Result Diagrams: 01/23/19 03:52 01/23/19 03:52 Hospitalist ROS - Review of Systems Respiratory: reports: shortness of breath, wheezing Cardiovascular: denies: chest pain, palpitations, orthopnea, paroxysmal noc. dyspnea, edema, light headedness, other Gastrointestinal: reports: diarrhea. denies: nausea, vomiting, abdominal pain, constipation, melena, hematochezia, other - Medication Medications: Active Medications Generic Name Dose Route Start Last Admin Trade Name Freq PRN Reason Stop Dose Admin Hydrocodone Bitart/Acetaminophen 1 tab 01/22/19 10:23 01/24/19 18:47 [place] 10/325 PO 1 tab Q4H PRN Administration Moderate to Severe Pain (6-10) Albuterol/Ipratropium 3 ml 01/22/19 21:19 01/23/19 07:16 Duoneb NEB 3 ml Q4H PRN Administration SOB/WHEEZE Albuterol/Ipratropium 3 ml 01/23/19 13:00 01/24/19 18:57 Duoneb NEB 3 ml [id number] YOLANDA Administration Citalopram Hydrobromide 20 mg 01/23/19 09:00 01/24/19 08:24 Celexa PO 20 mg DAILY YOLANDA Administration Enoxaparin Sodium 40 mg 01/21/19 09:00 01/24/19 08:25 Lovenox SC 40 mg 0900 YOLANDA Administration Gabapentin 600 mg 01/22/19 21:00 01/24/19 21:07 Neurontin PO 600 mg BID YOLANDA Administration Melatonin 3 mg 01/22/19 21:23 01/24/19 21:08 Melatonin PO 3 mg HS PRN Administration Insomnia Phosphorus 250 mg 01/24/19 12:00 01/24/19 17:50 Kphos Neutral PO 250 mg TID-WM YOLANDA Administration Saccharomyces Boulardii 250 mg 01/24/19 21:00 01/24/19 21:07 Florastor PO 250 mg HS YOLANDA Administration Sodium Chloride 10 ml 01/21/19 09:00 01/24/19 21:26 Flush - Normal Saline IVF 10 ml Q12HR YOLANDA Administration Tramadol HCl 50 mg 01/22/19 10:00 01/23/19 20:24 Ultram PO 50 mg Q6H PRN Administration Moderate to Severe Pain (6-10) - Exam General Appearance: NAD Neck: supple, no JVD Heart: RRR Respiratory: rhonchi, wheezes Gastrointestinal: soft, normal bowel sounds Hosp A/P (1) Acute hypoxemic respiratory failure Code(s): J96.01 - ACUTE RESPIRATORY FAILURE WITH HYPOXIA Status: Acute (2) Aspiration pneumonitis Code(s): J69.0 - PNEUMONITIS DUE TO INHALATION OF FOOD AND VOMIT Status: Acute (3) Severe sepsis Code(s): A41.9 - SEPSIS, UNSPECIFIED ORGANISM; R65.20 - SEVERE SEPSIS WITHOUT SEPTIC SHOCK Status: Acute (4) MARI (acute kidney injury) Code(s): N17.9 - ACUTE KIDNEY FAILURE, UNSPECIFIED Status: Acute (5) Hypokalemia Code(s): E87.6 - HYPOKALEMIA Status: Acute (6) Hypophosphatemia Code(s): E83.39 - OTHER DISORDERS OF PHOSPHORUS METABOLISM Status: Acute (7) Hypomagnesemia Code(s): E83.42 - HYPOMAGNESEMIA Status: Acute (8) Type 2 myocardial infarction Code(s): I21.A1 - MYOCARDIAL INFARCTION TYPE 2 Status: Acute - Plan continue antibiotics, dc bella Replace Electrolytes On Omnicef r/o C diff due to diarrhea AM labs DC Bella in AM PT/OT
--- NOTE | 2019-01-25 02:45 | EKG ---
Test Reason : Blood Pressure : / mmHG Vent. Rate : 074 BPM Atrial Rate : 074 BPM P-R Int : 130 ms QRS Dur : 086 ms QT Int : 472 ms P-R-T Axes : 029 062 061 degrees QTc Int : 523 ms Normal sinus rhythm ST abnormality, possible digitalis effect Nonspecific ST changes Prolonged QT Abnormal ECG Confirmed by INDER WORKMAN, KENDRA De La Garza ([id number]), subeditor SHARAD RODRIGEZ ([id number]) on 01/25/2019 2:45:01 AM Referred By: Confirmed By:KENDRA LOVING MD
[2019-01-25] MEDS: HYDROcodone/Acetaminophen 10/325 mg Tablet PO PRN ×5 (03:51→20:56)
[2019-01-25 04:34] LABS: Anion Gap 12 mmol/L (10-20); BUN (Urea Nitrogen) 7 mg/dL (9.8-20.1); Calc. Creatinine Clearance 84 mL/min (70-130); Calcium 7.8 mg/dL (7.8-10.44); Carbon Dioxide 23 mmol/L (22-29); Chloride 111 mmol/L (98-107); Estimated GFR-MDRD 71; Glucose 80 mg/dL (70-105); Potassium 3.2 mmol/L (3.5-5.1); Sodium 143 mmol/L (136-145)
[2019-01-25 04:41] LABS: Phosphorus 2.9 mg/dL (2.3-4.7)
[2019-01-25] MEDS: Furosemide 20 MG/2 ML VIAL SLOW IVP SCH (05:23)
[2019-01-25] MEDS: K-Phos Neutral 250 MG TAB PO SCH ×3 (08:41→16:30)
[2019-01-25] MEDS: guaiFENesin ER 600 MG TAB PO SCH ×2 (08:41→20:57)
[2019-01-25] MEDS: Gabapentin 300 MG CAP PO SCH ×2 (08:41→20:56)
[2019-01-25] MEDS: Lisinopril 5 MG TAB PO SCH (08:42)
[2019-01-25] MEDS: Citalopram 20 MG TAB PO SCH (08:42)
[2019-01-25] MEDS: Enoxaparin Sodium 40 MG/0.4 ML SYRINGE SC SCH (08:43)
[2019-01-25] MEDS: Famotidine 20 MG TAB PO SCH ×2 (08:47→20:57)
[2019-01-25] MEDS ORDERED: Potassium Chloride 20 MEQ TAB PO SCH (09:00)
[2019-01-25] MEDS ORDERED: Ondansetron ODT 8 MG TAB SL PRN (09:15)
[2019-01-25] MEDS ORDERED: Potassium Chloride 20 MEQ in Premix Bag 1 BAG IVPB SCH (10:00)
--- NOTE | 2019-01-25 16:11 | PRG ---
DATE OF SERVICE: 01/25/2019 SUBJECTIVE: The patient is seen and examined at the bedside. She is complaining about the nausea. No abdominal pain. OBJECTIVE: VITAL SIGNS: Blood pressure is 165/93, pulse is 84, respiratory rate is 18, O2 saturation is 93% on 3 L by nasal cannula, temperature is 98.6. HEENT: Her head is atraumatic and normocephalic. Eyes are PERRLA. Sclerae are nonicteric. Oral mucosa is moist. NECK: Supple. LUNGS: Clear. HEART: S1 and S2 normal. ABDOMEN: Soft, nontender. Bowel sounds are present. No organomegaly. EXTREMITIES: No clubbing, cyanosis, or edema. NEUROLOGICAL: She follows my commands. She moves all 4 extremities. There is no any motor or sensory deficits. LABORATORY DATA: Labs showed sodium of 143, potassium 3.2, chloride 111, CO2 of 23, BUN 7, creatinine of 0.82. The rest of chemistry within normal limits. Phosphorus 2.9 and magnesium 2.0. IMPRESSION: 1. Acute hypoxemic respiratory failure. 2. Aspiration pneumonitis. 3. Severe sepsis. 4. Acute kidney injury. 5. Hypokalemia. 6. Hypophosphatemia. 7. Hypomagnesemia. 8. Type 2 myocardial infarction. DISCUSSION: Her C difficile test came back negative. We will continue her oral Omnicef as per Pulmonary recommendation. She diuresis very well. She put out 2700 mL for the last 24 hours. She is scheduled for more Lasix tomorrow morning. We will get her up and ambulate. We will supplement her hypokalemia with IV piggyback, potassium chloride 20 mEq, and will use Zofran p.r.n. for her nausea. Job ID: [id number]
[2019-01-25] MEDS: Ondansetron PF 4 MG/2 ML Vial SLOW IVP PRN (16:29)
--- NOTE | 2019-01-25 16:53 | PRG ---
DATE OF SERVICE: 01/25/2019 SERVICE: Pulmonary Medicine. INTERVAL HISTORY: The patient is doing really well from a Respiratory standpoint. That being said, she continues to have increasing cough. She is bringing up a little bit of yellow to green phlegm now. She also has complaints of nausea. Outside of this, she is doing quite well. She denies any current fevers or chills. She has not had any abnormal bowel movements and is passing gas. She denies having any specific abdominal discomfort. PHYSICAL EXAMINATION: VITAL SIGNS: Afebrile, pulse 84, blood pressure 165/93, respirations 18, saturation 93% on 3 L nasal cannula. HEENT: Normocephalic and atraumatic. Sclerae white. Conjunctivae pink. Oral mucosa is moist without lesions. LUNGS: Really good air entry without any prolonged expiratory phase or wheezing present. HEART: Normal rate and regular. ABDOMEN: Soft, nontender, nondistended. Bowel sounds are positive. MUSCULOSKELETAL: No cyanosis or clubbing. No pitting in the bilateral lower extremities. NEUROLOGIC: Grossly nonfocal. LABORATORY DATA: WBC 9.5, hemoglobin 9.4, and platelets 202,000. Potassium 3.2. Basic metabolic profile is otherwise unremarkable. Magnesium and phosphorous fall within the normal limits. Blood cultures x2, urine culture, and C. diff antigen and toxin are all unremarkable. ASSESSMENT: 1. Acute hypoxic respiratory failure. 2. Encephalopathy, resolved. 3. Acute on chronic diastolic heart failure. 4. Chronic pain. 5. Acute bronchitis. DISCUSSION AND PLAN: The patient is bringing up a little bit of purulent sputum. As such, I will put her on a brief course of Levaquin. We will increase her Zofran to q.6 as needed. We will continue replacing potassium and repeat electrolytes as well as CBC will be obtained in the morning. Dr. Garrison will resume coverage in the morning. Job ID: [id number]
[2019-01-25] MEDS: Saccharomyces boulardii 250 MG CAP PO SCH (20:56)
[2019-01-26] MEDS ORDERED: cloNIDine 0.1 MG TAB PO PRN (00:10)
[2019-01-26] MEDS: HYDROcodone/Acetaminophen 10/325 mg Tablet PO PRN ×6 (00:49→21:35)
[2019-01-26] MEDS: Loperamide HCl 2 MG CAP PO PRN ×2 (03:52→05:29)
[2019-01-26] MEDS: Ondansetron PF 4 MG/2 ML Vial SLOW IVP PRN ×2 (05:29→11:29)
[2019-01-26 05:30] LABS: #Eosinphils 0.5 thou/uL (0.0-0.7); #Lymphocytes 1.3 thou/uL (1.20-3.40); #Neutrophils 6.3 thou/uL (1.40-6.50); %Basophils 0.3 % (0.0-1.0); %Eosinophils 5.9 % (0.0-10.0); %Lymphocytes 14.1 % (21.0-51.0); %Monocytes 10.9 % (0.0-10.0); %Neutrophils 68.8 % (42.0-75.0); Hemoglobin 8.6 g/dL (12.0-16.0); Mean Corpuscular HGB CONC 33.4 g/dL (32.0-36.0); Mean Corpuscular Hemoglobin 29.6 pg (27.0-31.0); Mean Corpuscular Volume 88.6 fL (78.0-98.0); Mean Platelet Volume 7.8 fL (7.4-10.4); Platelet Count 208 thou/uL (130-400); RBC Distribution Width 11.9 % (11.5-14.5); Red Blood Cell (RBC) Count 2.91 mill/uL (4.20-5.40); White Blood Cell (WBC) Count 9.1 thou/uL (4.8-10.8)
[2019-01-26 05:59] LABS: Anion Gap 13 mmol/L (10-20); BUN (Urea Nitrogen) 8 mg/dL (9.8-20.1); Calc. Creatinine Clearance 86 mL/min (70-130); Calcium 8.3 mg/dL (7.8-10.44); Carbon Dioxide 27 mmol/L (22-29); Chloride 109 mmol/L (98-107); Estimated GFR-MDRD 73; Glucose 99 mg/dL (70-105); Potassium 3.6 mmol/L (3.5-5.1); Sodium 145 mmol/L (136-145)
[2019-01-26] MEDS: Furosemide 20 MG/2 ML VIAL SLOW IVP SCH (06:00)
[2019-01-26] MEDS: Gabapentin 300 MG CAP PO SCH ×2 (08:38→20:13)
[2019-01-26] MEDS: K-Phos Neutral 250 MG TAB PO SCH (08:38)
[2019-01-26] MEDS: guaiFENesin ER 600 MG TAB PO SCH ×2 (08:39→20:13)
[2019-01-26] MEDS: Famotidine 20 MG TAB PO SCH ×2 (08:39→20:13)
[2019-01-26] MEDS: Citalopram 20 MG TAB PO SCH (08:39)
[2019-01-26] MEDS: Lisinopril 5 MG TAB PO SCH (08:39)
[2019-01-26] MEDS: Enoxaparin Sodium 40 MG/0.4 ML SYRINGE SC SCH (08:40)
--- NOTE | 2019-01-26 09:52 | PRG ---
DATE OF SERVICE: 01/26/2019 SUBJECTIVE: This morning, she is awake, alert, and responsive. She is less hypertensive. OBJECTIVE: VITAL SIGNS: Blood pressure is 130/80, temperature 98, saturations 95% on room air, respiratory rate 18. CHEST: No wheezing or crackle. CARDIAC: Normal S1 and S2. No gallops. LABORATORY DATA: Lytes are normal. H and H 8 and 25. IMPRESSION AND PLAN: 1. Status post hypertension. I doubt she is septic. 2. Fractured right hand. 3. Encephalopathy. 4. Chronic pain. 5. Bronchitis. Pulmonary [place], she is stable enough to transition care. Pulmonary will follow at a distance. Call if needed. Job ID: [id number]
--- NOTE | 2019-01-26 11:58 | PRG ---
DATE OF SERVICE: 01/26/2019 SUBJECTIVE: The patient is seen and examined at bedside. She still complains about some nausea. She does not want to eat much. She does not have diarrhea, only 1 bowel movement since yesterday, kind of watery. OBJECTIVE: VITAL SIGNS: Blood pressure is 130/82, pulse is 92, temperature is 98, maximal temperature 98.6, respiratory rate is 12, and O2 saturation is 93% on 3 L by nasal cannula. HEENT: Head is atraumatic and normocephalic. Eyes are PERRLA. Sclerae are nonicteric. LUNGS: Bilateral rales and crackles present, especially in the front, less in the back. No wheezing. HEART: S1 and S2 normal. No S3. No S4. ABDOMEN: Soft, nontender. Bowel sounds are present. No organomegaly. EXTREMITIES: No clubbing, cyanosis, or edema. NEUROLOGICAL: She follows my commands. She moves all 4 extremities. There is no any motor or sensory deficits. LABORATORY DATA: Labs showed white count of 9.1, hemoglobin 8.6, hematocrit 25.8, platelet count is 208,000. Sodium of 145, potassium 3.6, chloride 109, CO2 of 27, BUN 8, creatinine 0.8, glucose 99, and calcium 8.3. Microbiology, no new findings. IMPRESSION: 1. Acute hypoxic respiratory failure. 2. Aspiration pneumonitis. 3. Severe sepsis. 4. Acute kidney injury. 5. Hypokalemia, corrected. 6. Hypophosphatemia, corrected. 7. Hypomagnesemia, corrected. 8. Type 2 myocardial infarction and diastolic dysfunction. 9. Persistent nausea. PLAN: We are going to stop her phosphorus and we will use potassium replacement through her IV to avoid any nausea. Also, she has some diarrhea, which subsided with one dose of Imodium yesterday and one dose of Imodium the day before. Her hemoglobin is trending down. We will check her occult blood on her stool to rule out any GI blood loss. Also, we will have Restoril p.r.n. to be used since she could not sleep last night. We will ask her to get up and ambulate today and use some supplements if the solid food makes her sick. I believe that on empty stomach when she takes her medications, they made her nauseated. She does not vomit. She does not have an abdominal pain. We will continue her IV Lasix daily. We will continue her DuoNebs. We will continue antibiotic, which was switched to levofloxacin 750 mg p.o. and we will continue DVT prophylaxis. Job ID: [id number]
[2019-01-26] MEDS: Saccharomyces boulardii 250 MG CAP PO SCH (20:14)
[2019-01-27] MEDS: Melatonin 3 MG TAB PO PRN (00:35)
[2019-01-27] MEDS: HYDROcodone/Acetaminophen 10/325 mg Tablet PO PRN ×4 (00:35→20:37)
[2019-01-27] MEDS: Ondansetron PF 4 MG/2 ML Vial SLOW IVP PRN (08:13)
[2019-01-27] MEDS: Enoxaparin Sodium 40 MG/0.4 ML SYRINGE SC SCH (08:16)
--- NOTE | 2019-01-27 08:40 | RAD ---
EXAM: Single view of the chest HISTORY: Shortness of breath COMPARISON: 01/23/2019 FINDINGS: Single view of the chest shows a normal sized cardiomediastinal silhouette. A left subclav anna marie central venous catheter seen with its tip in the superior vena cava. No pneumothorax is seen. There is no evidence of consolidation, mass, or pleural effusion. The bones are unremarkable. IMPRESSION: No evidence of acute cardiopulmonary disease
[2019-01-27] MEDS ORDERED: (Ropinirole Hcl [Ropinirole Er] 2 MG) PO SCH (09:00)
[2019-01-27] MEDS: Citalopram 20 MG TAB PO SCH (09:15)
[2019-01-27] MEDS: Famotidine 20 MG TAB PO SCH ×2 (09:15→20:22)
[2019-01-27] MEDS: Gabapentin 300 MG CAP PO SCH ×2 (09:15→20:22)
[2019-01-27] MEDS: Lisinopril 5 MG TAB PO SCH (09:16)
[2019-01-27] MEDS: guaiFENesin ER 600 MG TAB PO SCH ×2 (09:16→20:22)
[2019-01-27] MEDS ORDERED: GoLYTELY 4,000 ml Bottle PO SCH (11:00)
--- NOTE | 2019-01-27 11:01 | PDOC.HOSPP ---
- Subjective Encounter Date: 01/27/19 Encounter Time: 08:00 Subjective: pt has nausea, yesterday had diarrhoea, c-diff is negative but guiac positive, has drop in Hb, feel very weak - Objective Vital Signs & Weight: Vital Signs (12 hours) Temp Pulse Resp BP BP Pulse Ox 01/27/19 09:16 88 161/83 H 01/27/19 07:48 98.7 F 88 18 161/83 H 92 L 01/27/19 06:58 76 16 93 L 01/27/19 04:00 98.5 F 76 18 158/79 H 93 L 01/27/19 00:58 88 16 94 L 01/27/19 00:00 98.5 F 92 20 177/92 H 95 Weight Admit Weight 153 lb Weight 159 lb 2.78 oz Most Recent Monitor Data Heart Rate from ECG 96 NIBP 156/95 NIBP BP-Mean 115 Respiration from ECG 25 SpO2 93 I&O: 01/26/19 01/27/19 01/28/19 06:59 06:59 06:59 Intake Total 2100 850 Output Total 3900 1450 Balance -1800 -600 Result Diagrams: 01/26/19 04:49 01/26/19 04:49 Hospitalist ROS - Review of Systems Constitutional: reports: weakness, malaise. denies: fever, chills, sweats, other ENT: denies: ear pain, ear discharge, nose pain, nose discharge, nose congestion , mouth pain, mouth swelling, throat pain, throat swelling, other Respiratory: denies: cough, dry, shortness of breath, hemoptysis, SOB with excertion, pleuritic pain, sputum, wheezing, other Cardiovascular: denies: chest pain, palpitations, orthopnea, paroxysmal noc. dyspnea, edema, light headedness, other Gastrointestinal: reports: nausea. denies: vomiting, abdominal pain, diarrhea, constipation, melena, hematochezia, other Genitourinary: denies: dysuria, frequency, incontinence, hematuria, retention, other Musculoskeletal: denies: neck pain, shoulder pain, arm pain, back pain, hand pain, leg pain, foot pain, other Skin: denies: rash, lesions, luna, bruising, other - Medication Medications: Active Medications Generic Name Dose Route Start Last Admin Trade Name Freq PRN Reason Stop Dose Admin Hydrocodone Bitart/Acetaminophen 1 tab 01/22/19 10:23 01/27/19 09:16 [place] 10/325 PO 1 tab Q4H PRN Administration Moderate to Severe Pain (6-10) Albuterol/Ipratropium 3 ml 01/22/19 21:19 01/23/19 07:16 Duoneb NEB 3 ml Q4H PRN Administration SOB/WHEEZE Albuterol/Ipratropium 3 ml 01/23/19 13:00 01/27/19 06:58 Duoneb NEB 3 ml [id number] YOLANDA Administration Citalopram Hydrobromide 20 mg 01/23/19 09:00 01/27/19 09:15 Celexa PO 20 mg DAILY YOLANDA Administration Clonidine 0.1 mg 01/26/19 00:10 01/26/19 02:39 Catapres PO 0.1 mg Q4H PRN Administration SBP >=180 Enoxaparin Sodium 40 mg 01/21/19 09:00 01/27/19 08:16 Lovenox SC 40 mg 0900 YOLANDA Administration Famotidine 20 mg 01/25/19 09:00 01/27/19 09:15 Pepcid PO 20 mg BID YOLANDA Administration Gabapentin 600 mg 01/22/19 21:00 01/27/19 09:15 Neurontin PO 600 mg BID YOLANDA Administration Guaifenesin 600 mg 01/25/19 09:00 01/27/19 09:16 Mucinex PO 600 mg Q12HR YOLANDA Administration Levofloxacin 750 mg 01/26/19 06:00 01/27/19 06:21 Levaquin PO 01/30/19 06:01 750 mg 0600 YOLANDA Administration Lisinopril 5 mg 01/25/19 09:00 01/27/19 09:16 Zestril PO 5 mg DAILY YOLANDA Administration Loperamide HCl 2 mg 01/24/19 22:40 01/26/19 05:29 Imodium PO 2 mg PRN PRN Administration Diarrhea/Loose Stools Melatonin 3 mg 01/22/19 21:23 01/27/19 00:35 Melatonin PO 3 mg HS PRN Administration Insomnia Ondansetron HCl 4 mg 01/25/19 16:03 01/27/19 08:13 Zofran SLOW IVP 4 mg Q6H PRN Administration Nausea/Vomiting Saccharomyces Boulardii 250 mg 10/12/19 21:00 01/26/19 20:14 Florastor PO 250 mg HS YOLANDA Administration Sodium Chloride 10 ml 01/21/19 09:00 01/27/19 08:14 Flush - Normal Saline IVF 10 ml Q12HR YOLANDA Administration Tramadol HCl 50 mg 01/22/19 10:00 01/23/19 20:24 Ultram PO 50 mg Q6H PRN Administration Moderate to Severe Pain (6-10) - Exam General Appearance: NAD, awake alert Eye: PERRL, anicteric sclera ENT: normocephalic atraumatic, no oropharyngeal lesions Neck: supple, symmetric, no JVD, no thyromegaly Heart: RRR, no murmur, no gallops, no rubs, normal peripheral pulses Respiratory: CTAB, no wheezes, no rales, no ronchi, normal chest expansion Gastrointestinal: soft, non-tender, non-distended, normal bowel sounds, no palpable masses Extremities: no cyanosis, no clubbing, no edema Skin: normal turgor, no lesions Neurological: no focal deficits Musculoskeletal: normal tone, normal strength Psychiatric: normal affect, normal behavior Hosp A/P (1) Acute hypoxemic respiratory failure Code(s): J96.01 - ACUTE RESPIRATORY FAILURE WITH HYPOXIA Status: Acute (2) Aspiration pneumonitis Code(s): J69.0 - PNEUMONITIS DUE TO INHALATION OF FOOD AND VOMIT Status: Acute (3) Hypomagnesemia Code(s): E83.42 - HYPOMAGNESEMIA Status: Resolved (4) Hypophosphatemia Code(s): E83.39 - OTHER DISORDERS OF PHOSPHORUS METABOLISM Status: Resolved (5) NSVT (nonsustained ventricular tachycardia) Code(s): I47.2 - VENTRICULAR TACHYCARDIA Status: Resolved (6) Severe sepsis Code(s): A41.9 - SEPSIS, UNSPECIFIED ORGANISM; R65.20 - SEVERE SEPSIS WITHOUT SEPTIC SHOCK Status: Resolved (7) Type 2 myocardial infarction Code(s): I21.A1 - MYOCARDIAL INFARCTION TYPE 2 Status: Acute (8) Anxiety and depression Code(s): F41.9 - ANXIETY DISORDER, UNSPECIFIED; F32.9 - MAJOR DEPRESSIVE DISORDER, SINGLE EPISODE, UNSPECIFIED Status: Chronic (9) Anemia, normocytic normochromic Code(s): D64.9 - ANEMIA, UNSPECIFIED Status: Acute - Plan old records reviewed/req, PT/OT, hospital social worker consult GI for acute on chronic anemia, persistent nausea and guiac positive stool continue levaquin continue PT/OT and evaluate for any need for snu or rehab expecting discharge in 24-48 hours medication reviewed as above symptomatic treatment
--- NOTE | 2019-01-27 11:57 | CON ---
DATE OF CONSULTATION: 01/27/2019 REQUESTING PHYSICIAN: Kvng Verma MD REASON FOR CONSULTATION: Nausea, anemia, and heme-positive stool. HISTORY OF PRESENT ILLNESS: Mary Kay Sanon is a 58-year-old woman with a history of seizure disorder and peripheral neuropathy as well as depression and anxiety. She thinks she may have undergone EGD and colonoscopy in the remote past, but she is unsure of any results. Chronically, she says she tends toward constipation, but will take some [id number] laxatives or MiraLAX and this generally controls things well. She has no other chronic gastrointestinal symptoms. She was admitted to the hospital 1 week ago on 01/20/2019 with hypoxic respiratory failure and hypotension as well as encephalopathy. She had been found down in the bathroom, having complained of some recent constipation and was found with vomitus all over her and it was thought that she probably had aspiration pneumonia. She was treated aggressively with mechanical ventilation and IV antibiotics. She has had significant improvement over the past week, doing much better from a respiratory perspective. Encephalopathy is resolved. However, for the past few days, she is continued to complain of nausea. There has been no vomiting, but her oral intake has been fairly minimal. She has had some loose stools here with a negative C difficile, but no melena or hematochezia. It has been noted that hemoglobin has declined from 11.1 on admission, now down to 8.6, though there has been no overt evidence of bleeding. BUN is only 8. FOBT was performed and was positive. REVIEW OF SYSTEMS: Full review of systems including constitutional, head, eyes, ears, nose, throat, GI, , cardiovascular, respiratory, musculoskeletal, and neurologic systems is negative except as noted in the HPI. PAST MEDICAL HISTORY: Anxiety, depression, scoliosis, peripheral neuropathy, seizure disorder, hysterectomy, and appendectomy. ALLERGIES: NO KNOWN DRUG ALLERGIES. INPATIENT MEDICATIONS: 1. Thurman p.r.n. 2. DuoNeb q.6 hours. 3. Celexa. 4. Clonidine. 5. Lovenox. 6. Pepcid 20 mg b.i.d. 7. Gabapentin. 8. Mucinex. 9. Levofloxacin 750 mg p.o. daily. 10. Lisinopril. 11. Imodium p.r.n. 12. Melatonin. 13. Zofran p.r.n. 14. Florastor 250 mg at bedtime. 15. Tramadol p.r.n. SOCIAL HISTORY: No smoking, alcohol, or drug use. FAMILY HISTORY: Noncontributory. PHYSICAL EXAMINATION: VITAL SIGNS: Temperature 98.7, pulse 88, blood pressure 161/83, and oxygen saturation 92% on 3 L nasal cannula. GENERAL: A 58-year-old woman, sitting up in bed comfortably, in no distress. SKIN: No jaundice. No rashes were palpable. EYES: No scleral icterus. Extraocular eye movements intact. ENT: Mucous membranes moist. No oral lesions. LYMPH: No submandibular or supraclavicular lymphadenopathy. THYROID: Nontender to palpation. HEART: Regular rate and rhythm. LUNGS: Clear to auscultation bilaterally. ABDOMEN: Bowel sounds present. Soft and nontender to palpation. EXTREMITIES: No peripheral edema. VESSELS: Radial pulse 2+ bilaterally. NEURO: Cranial nerves II through XII intact bilaterally. No focal deficits. LABORATORY STUDIES: Admission hemoglobin was 11.1, has slowly trended down to 8.6, MCV is 88.6, WBC 9.1, platelets 208. BUN 8, creatinine 0.80, sodium 145, potassium 3.6, and glucose 99. FOBT is positive. C difficile is negative. Blood cultures show no growth at 5 days. From earlier this admission, total bilirubin 0.4, alkaline phosphatase 116, AST 87, ALT 36, and albumin 2.9. Troponin 0.379. IMAGING STUDIES: Chest x-ray shows no acute processes. Echocardiogram showed ejection fraction 55% to 60%. ASSESSMENT AND PLAN: 1. Nausea, in the context of recent acute hypoxic respiratory failure, bronchitis, and possible aspiration pneumonitis. 2. Anemia, with declining hemoglobin over the past week and no overt evidence of bleeding. 3. Heme-positive stool. The patient's nausea is probably multifactorial secondary to her recent critical illness and recovery, but given the declining hemoglobin over the past few days as well as the heme-positive stool, do need to consider possibility of significant gastritis or peptic ulcer disease. Consider other occult GI bleeding source as well. We will go ahead and plan for diagnostic esophagogastroduodenoscopy and colonoscopy tomorrow. Start the bowel preparation this afternoon and give her time to try to get it all down by midnight. I advised her to just do her best with this, given her nausea. Thank you for the consultation. Please call anytime with questions or concerns. Job ID: [id number]
[2019-01-27] MEDS: traMADol HCl 50 MG TAB PO PRN ×3 (12:04→23:55)
[2019-01-27] MEDS ORDERED: Artificial Tear Sol 15 ML BOT EA EYE PRN (12:27)
[2019-01-27] MEDS: Saccharomyces boulardii 250 MG CAP PO SCH (20:22)
[2019-01-28] MEDS: HYDROcodone/Acetaminophen 10/325 mg Tablet PO PRN ×4 (03:07→18:44)
[2019-01-28] MEDS: Enoxaparin Sodium 40 MG/0.4 ML SYRINGE SC SCH (06:02)
[2019-01-28] MEDS: Gabapentin 300 MG CAP PO SCH ×2 (08:10→20:04)
[2019-01-28] MEDS: guaiFENesin ER 600 MG TAB PO SCH ×2 (08:10→20:04)
[2019-01-28] MEDS: Famotidine 20 MG TAB PO SCH ×2 (08:10→20:04)
[2019-01-28] MEDS: Lisinopril 5 MG TAB PO SCH (08:10)
[2019-01-28] MEDS: Citalopram 20 MG TAB PO SCH (08:10)
--- NOTE | 2019-01-28 15:55 | OP ---
DATE OF PROCEDURE: 01/28/2019 PROCEDURES PERFORMED: Esophagogastroduodenoscopy with biopsy and colonoscopy with biopsy. PREOPERATIVE DIAGNOSES: Anemia and Hemoccult-positive stool and nausea. DESCRIPTION OF PROCEDURE: Informed consent was obtained from the patient. She was sedated with total intravenous anesthesia. The bite block was placed, and the endoscope was advanced easily to the second portion of the duodenum, and retroflexion was performed in the stomach. The esophagus was normal. The GE junction was normal. The stomach had multiple linear ulcerations in the antrum on the distal side of the incisura to the antrum. Biopsies were obtained to rule out H pylori. The ulcers were measured a couple of cm x 4 mm. There were several ulcerations present. Retroflex views in the stomach were unremarkable. The pylorus and first and second portions of the duodenum were normal. The patient was turned around. Rectal exam was performed and was normal. The colonoscope was advanced to the terminal ileum without difficulty. The mucosa of the terminal ileum was normal. The ileocecal valve and appendiceal orifice were clearly identified. The preparation quality was adequate. There was a shallow 1 cm ulcer in the descending colon. Biopsies were obtained. The remainder of the colonic mucosa was normal. Retroflex views in the rectum were normal. IMPRESSION: 1. Multiple linear ulcerations in the antrum of the stomach between the antrum and the distal side of the incisura. These might be ischemic ulcerations, however, ischemia in the stomach is less common. They could be stress ulcers as well. There was no stigmata of recent bleeding. 2. Otherwise normal EGD. 3. 1 cm shallow ulcer in the descending colon which is likely ischemic. Biopsies were obtained around the site. 4. Otherwise normal colonoscopy to the terminal ileum. RECOMMENDATIONS: 1. Await histopathology. 2. Proton pump inhibitor twice daily. 3. Advance diet. 4. Repeat colonoscopy in 10 years. 5. I will sign off for now. Please call if GI can be of assistance. Job ID: [id number]
[2019-01-28] MEDS: Temazepam 15 MG CAP PO PRN (20:04)
[2019-01-28] MEDS: Saccharomyces boulardii 250 MG CAP PO SCH (20:04)
--- NOTE | 2019-01-28 22:49 | PDOC.HOSPP ---
- Subjective Subjective: Doing ok. Had endoscopy today. Still feels like she needs the oxygen. - Objective Vital Signs & Weight: Vital Signs (12 hours) Temp Pulse Resp BP Pulse Ox 01/28/19 19:33 98.7 F 92 20 149/81 H 92 L 01/28/19 18:09 79 16 95 01/28/19 15:56 98.0 F 78 18 159/88 H 94 L 01/28/19 14:35 98.0 F 88 18 158/79 H 93 L 01/28/19 11:26 98.3 F 82 18 115/50 L 94 L Weight Admit Weight 153 lb Weight 159 lb 2.78 oz Most Recent Monitor Data Heart Rate from ECG 96 NIBP 156/95 NIBP BP-Mean 115 Respiration from ECG 25 SpO2 93 I&O: 01/27/19 01/28/19 01/29/19 06:59 06:59 06:59 Intake Total 850 2000 500 Output Total 1450 Balance -600 2000 500 Result Diagrams: 01/26/19 04:49 01/26/19 04:49 Hospitalist ROS - Medication Medications: Active Medications Generic Name Dose Route Start Last Admin Trade Name Freq PRN Reason Stop Dose Admin Hydrocodone Bitart/Acetaminophen 1 tab 01/22/19 10:23 01/28/19 18:44 [place] 10/325 PO 1 tab Q4H PRN Administration Moderate to Severe Pain (6-10) Albuterol/Ipratropium 3 ml 01/22/19 21:19 01/23/19 07:16 Duoneb NEB 3 ml Q4H PRN Administration SOB/WHEEZE Albuterol/Ipratropium 3 ml 01/23/19 13:00 01/28/19 18:09 Duoneb NEB 3 ml [id number] YOLANDA Administration Citalopram Hydrobromide 20 mg 01/23/19 09:00 01/28/19 08:10 Celexa PO 20 mg DAILY YOLANDA Administration Clonidine 0.1 mg 01/26/19 00:10 01/26/19 02:39 Catapres PO 0.1 mg Q4H PRN Administration SBP >=180 Enoxaparin Sodium 40 mg 01/21/19 09:00 01/28/19 06:02 Lovenox SC Not Given 09 YOLANDA Famotidine 20 mg 01/25/19 09:00 01/28/19 20:04 Pepcid PO 20 mg BID YOLANDA Administration Gabapentin 600 mg 01/22/19 21:00 01/28/19 20:04 Neurontin PO 600 mg BID YOLANDA Administration Guaifenesin 600 mg 01/25/19 09:00 01/28/19 20:04 Mucinex PO 600 mg Q12HR YOLANDA Administration Levofloxacin 750 mg 01/26/19 06:00 01/28/19 05:43 Levaquin PO 01/30/19 06:01 750 mg 0600 YOLANDA Administration Lisinopril 5 mg 01/25/19 09:00 01/28/19 08:10 Zestril PO 5 mg DAILY YOLANDA Administration Loperamide HCl 2 mg 01/24/19 22:40 01/26/19 05:29 Imodium PO 2 mg PRN PRN Administration Diarrhea/Loose Stools Melatonin 3 mg 01/22/19 21:23 01/27/19 00:35 Melatonin PO 3 mg HS PRN Administration Insomnia Ondansetron HCl 4 mg 01/25/19 16:03 01/27/19 08:13 Zofran SLOW IVP 4 mg Q6H PRN Administration Nausea/Vomiting Pantoprazole Sodium 40 mg 01/28/19 21:00 01/28/19 20:04 Protonix PO 40 mg BID YOLANDA Administration Saccharomyces Boulardii 250 mg 01/24/19 21:00 01/28/19 20:04 Florastor PO 250 mg HS YOLANDA Administration Sodium Chloride 10 ml 01/21/19 09:00 01/28/19 20:04 Flush - Normal Saline IVF 10 ml Q12HR YOLANDA Administration Temazepam 15 mg 01/26/19 11:34 01/28/19 20:04 Restoril PO 15 mg HSPRN PRN Administration Insomnia Tramadol HCl 50 mg 01/22/19 10:00 01/27/19 23:55 Ultram PO 50 mg Q6H PRN Administration Moderate to Severe Pain (6-10) - Exam General Appearance: NAD, awake alert Heart: RRR, no murmur, no gallops, no rubs, normal peripheral pulses Respiratory: rales (Scattered, bilateral. Slightly more on left.) Gastrointestinal: soft, non-tender, non-distended, normal bowel sounds, no palpable masses, no hepatomegaly, no splenomegaly, no bruit Skin: normal turgor, no lesions, no rashes Musculoskeletal: normal tone, normal strength, no muscle wasting Psychiatric: normal affect Hosp A/P (1) Aspiration pneumonitis Code(s): J69.0 - PNEUMONITIS DUE TO INHALATION OF FOOD AND VOMIT Status: Acute (2) Hypotension Status: Acute (3) Anxiety and depression Code(s): F41.9 - ANXIETY DISORDER, UNSPECIFIED; F32.9 - MAJOR DEPRESSIVE DISORDER, SINGLE EPISODE, UNSPECIFIED Status: Chronic (4) Hypokalemia Code(s): E87.6 - HYPOKALEMIA Status: Acute (5) NSVT (nonsustained ventricular tachycardia) Code(s): I47.2 - VENTRICULAR TACHYCARDIA Status: Resolved (6) Myocardial infarction Code(s): I21.9 - ACUTE MYOCARDIAL INFARCTION, UNSPECIFIED Status: Acute Qualifiers: Myocardial infarction type: type 2 Qualified Code(s): I21.A1 - Myocardial infarction type 2 - Plan Renal function normalized. Respiratory status much improved. Continue [place] oxygen, prn nebs. Will need to check need for home oxygen. Increase activity. COntinue PPI and advancing diet per GI. Discussed disposition. She may well need home oxygen. May need home health.
[2019-01-29] MEDS: traMADol HCl 50 MG TAB PO PRN ×3 (00:10→19:30)
[2019-01-29] MEDS: Melatonin 3 MG TAB PO PRN (00:12)
[2019-01-29] MEDS: HYDROcodone/Acetaminophen 10/325 mg Tablet PO PRN ×5 (03:41→20:41)
[2019-01-29] MEDS: Ondansetron PF 4 MG/2 ML Vial SLOW IVP PRN (07:53)
[2019-01-29] MEDS: Lisinopril 5 MG TAB PO SCH (07:54)
[2019-01-29] MEDS: Gabapentin 300 MG CAP PO SCH ×2 (07:54→19:29)
[2019-01-29] MEDS: Citalopram 20 MG TAB PO SCH (07:55)
[2019-01-29] MEDS: Famotidine 20 MG TAB PO SCH ×2 (07:55→19:29)
[2019-01-29] MEDS: Enoxaparin Sodium 40 MG/0.4 ML SYRINGE SC SCH (07:55)
[2019-01-29] MEDS: guaiFENesin ER 600 MG TAB PO SCH ×2 (07:55→19:29)
[2019-01-29 10:38] LABS: Mean Corpuscular HGB CONC 33.5 g/dL (32.0-36.0); Mean Corpuscular Hemoglobin 30.7 pg (27.0-31.0); Mean Corpuscular Volume 91.5 fL (78.0-98.0); Mean Platelet Volume 7.2 fL (7.4-10.4); Platelet Count 219 thou/uL (130-400); RBC Distribution Width 12.3 % (11.5-14.5); Red Blood Cell (RBC) Count 2.94 mill/uL (4.20-5.40); White Blood Cell (WBC) Count 5.4 thou/uL (4.8-10.8)
[2019-01-29 10:55] LABS: Anion Gap 12 mmol/L (10-20); BUN (Urea Nitrogen) 6 mg/dL (9.8-20.1); Calc. Creatinine Clearance 99 mL/min (70-130); Calcium 8.4 mg/dL (7.8-10.44); Carbon Dioxide 27 mmol/L (22-29); Chloride 101 mmol/L (98-107); Estimated GFR-MDRD 86; Glucose 104 mg/dL (70-105); Sodium 137 mmol/L (136-145)
[2019-01-29 11:02] LABS: Band 9 % (5-11); Eosinophils 2 % (0-10); Lymphocytes 20 % (21-51); MDiff Complete? YES; Monocytes 10 % (0-10); Neutrophil 53 % (42-75); Platelet Morphology Comment Appears Adequate; Polychromasia MODERATE = 3-4 cells (100X) (0-2/hpf); Reactive Lymphocytes 6 % (0-10)
[2019-01-29 11:08] LABS: Potassium 2.9 mmol/L (3.5-5.1)
[2019-01-29] MEDS ORDERED: Potassium Chloride 20 MEQ TAB PO SCH ×2 (11:15→16:00)
--- NOTE | 2019-01-29 13:46 | PDOC.HOSPP ---
- Subjective Subjective: Doing ok. Says she is still just very weak. - Objective Vital Signs & Weight: Vital Signs (12 hours) Temp Pulse Pulse Pulse Resp BP BP 01/29/19 12:35 78 16 01/29/19 11:38 98.3 F 75 20 01/29/19 10:50 81 76 158/89 H 01/29/19 08:00 01/29/19 07:54 77 158/89 H 01/29/19 07:25 98.1 F 77 20 01/29/19 06:34 01/29/19 06:33 80 16 01/29/19 04:45 98.7 F 76 18 01/29/19 02:10 BP Pulse Ox Pulse Ox Pulse Ox Pulse Ox Pulse Ox 01/29/19 12:35 93 L 01/29/19 11:38 144/83 H 95 01/29/19 10:50 88 L 94 L 85 L 90 L 01/29/19 08:00 94 L 01/29/19 07:54 01/29/19 07:25 158/89 H 94 L 01/29/19 06:34 94 L 01/29/19 06:33 94 L 01/29/19 04:45 154/78 H 95 01/29/19 02:10 93 L Weight Admit Weight 153 lb Weight 159 lb 2.78 oz Most Recent Monitor Data Heart Rate from ECG 96 NIBP 156/95 NIBP BP-Mean 115 Respiration from ECG 25 SpO2 93 I&O: 01/28/19 01/29/19 01/30/19 06:59 06:59 06:59 Intake Total 1999 Balance 1999 500 Result Diagrams: 01/29/19 10:24 01/29/19 10:24 Hospitalist ROS - Medication Medications: Active Medications Generic Name Dose Route Start Last Admin Trade Name Freq PRN Reason Stop Dose Admin Hydrocodone Bitart/Acetaminophen 1 tab 01/22/19 10:23 01/29/19 12:32 [place] 10/325 PO 1 tab Q4H PRN Administration Moderate to Severe Pain (6-10) Albuterol/Ipratropium 3 ml 01/22/19 21:19 01/23/19 07:16 Duoneb NEB 3 ml Q4H PRN Administration SOB/WHEEZE Albuterol/Ipratropium 3 ml 01/23/19 13:00 01/29/19 12:35 Duoneb NEB 3 ml [id number] YOLANDA Administration Citalopram Hydrobromide 20 mg 01/23/19 09:00 01/29/19 07:55 Celexa PO 20 mg DAILY YOLANDA Administration Clonidine 0.1 mg 01/26/19 00:10 01/26/19 02:39 Catapres PO 0.1 mg Q4H PRN Administration SBP >=180 Enoxaparin Sodium 40 mg 01/21/19 09:00 01/29/19 07:55 Lovenox SC 40 mg 0900 YOLANDA Administration Famotidine 20 mg 01/25/19 09:00 01/29/19 07:55 Pepcid PO 20 mg BID YOLANDA Administration Gabapentin 600 mg 01/22/19 21:00 01/29/19 07:54 Neurontin PO 600 mg BID YOLANDA Administration Guaifenesin 600 mg 01/25/19 09:00 01/29/19 07:55 Mucinex PO 600 mg Q12HR YOLANDA Administration Levofloxacin 750 mg 01/26/19 06:00 01/29/19 05:24 Levaquin PO 01/30/19 06:01 750 mg 0600 YOLANDA Administration Lisinopril 5 mg 01/25/19 09:00 01/29/19 07:54 Zestril PO 5 mg DAILY YOLANDA Administration Loperamide HCl 2 mg 01/24/19 22:40 01/26/19 05:29 Imodium PO 2 mg PRN PRN Administration Diarrhea/Loose Stools Melatonin 3 mg 01/22/19 21:23 01/29/19 00:12 Melatonin PO 3 mg HS PRN Administration Insomnia Ondansetron HCl 4 mg 01/25/19 16:03 01/29/19 07:53 Zofran SLOW IVP 4 mg Q6H PRN Administration Nausea/Vomiting Pantoprazole Sodium 40 mg 01/28/19 21:00 01/29/19 07:55 Protonix PO 40 mg BID YOLANDA Administration Saccharomyces Boulardii 250 mg 01/24/19 21:00 01/28/19 20:04 Florastor PO 250 mg HS YOLANDA Administration Sodium Chloride 10 ml 01/21/19 09:00 01/29/19 07:56 Flush - Normal Saline IVF 10 ml Q12HR YOLANDA Administration Temazepam 15 mg 01/26/19 11:34 01/28/19 20:04 Restoril PO 15 mg HSPRN PRN Administration Insomnia Tramadol HCl 50 mg 01/22/19 10:00 01/29/19 00:10 Ultram PO 50 mg Q6H PRN Administration Moderate to Severe Pain (6-10) - Exam General Appearance: NAD, awake alert Heart: RRR, no murmur, no gallops, no rubs, normal peripheral pulses Respiratory: no wheezes, no ronchi, normal chest expansion, no tachypnea, normal percussion Respiratory - other findings: scattered rales, more on the left. Gastrointestinal: soft, non-tender, non-distended, normal bowel sounds, no palpable masses, no hepatomegaly, no splenomegaly, no bruit Extremities: no cyanosis, no clubbing, no edema Musculoskeletal: generalized weakness Psychiatric: normal behavior, A&O x 3, flat affect Hosp A/P (1) Aspiration pneumonitis Code(s): J69.0 - PNEUMONITIS DUE TO INHALATION OF FOOD AND VOMIT Status: Acute (2) Hypotension Status: Acute (3) Anxiety and depression Code(s): F41.9 - ANXIETY DISORDER, UNSPECIFIED; F32.9 - MAJOR DEPRESSIVE DISORDER, SINGLE EPISODE, UNSPECIFIED Status: Chronic (4) Hypokalemia Code(s): E87.6 - HYPOKALEMIA Status: Acute (5) NSVT (nonsustained ventricular tachycardia) Code(s): I47.2 - VENTRICULAR TACHYCARDIA Status: Resolved (6) Myocardial infarction Code(s): I21.9 - ACUTE MYOCARDIAL INFARCTION, UNSPECIFIED Status: Acute Qualifiers: Myocardial infarction type: type 2 Qualified Code(s): I21.A1 - Myocardial infarction type 2 - Plan Renal function normalized. Respiratory status much improved. Continue [place] oxygen, prn nebs. Will need to check need for home oxygen. Increase activity. COntinue PPI and advancing diet per GI. Discussed disposition. She will need home oxygen. May need home health/PT for a few days. Rolling walker.
[2019-01-29] MEDS: Saccharomyces boulardii 250 MG CAP PO SCH (19:29)
[2019-01-29] MEDS: Temazepam 15 MG CAP PO PRN (20:41)
[2019-01-30] MEDS: HYDROcodone/Acetaminophen 10/325 mg Tablet PO PRN ×3 (04:36→13:56)
[2019-01-30] MEDS: Lisinopril 5 MG TAB PO SCH (08:44)
[2019-01-30] MEDS: Famotidine 20 MG TAB PO SCH (08:44)
[2019-01-30] MEDS: Citalopram 20 MG TAB PO SCH (08:44)
[2019-01-30] MEDS: guaiFENesin ER 600 MG TAB PO SCH (08:44)
[2019-01-30] MEDS: Gabapentin 300 MG CAP PO SCH (08:45)
[2019-01-30] MEDS: Enoxaparin Sodium 40 MG/0.4 ML SYRINGE SC SCH (08:45)
[2019-01-30 09:28] LABS: Anion Gap 14 mmol/L (10-20); BUN (Urea Nitrogen) 5 mg/dL (9.8-20.1); Calc. Creatinine Clearance 89 mL/min (70-130); Calcium 8.5 mg/dL (7.8-10.44); Carbon Dioxide 24 mmol/L (22-29); Chloride 102 mmol/L (98-107); Estimated GFR-MDRD 76; Glucose 114 mg/dL (70-105); Potassium 3.2 mmol/L (3.5-5.1); Sodium 137 mmol/L (136-145)
[2019-01-30] MEDS: traMADol HCl 50 MG TAB PO PRN (11:11)
[2019-01-30 15:57] VITALS: BP 152/83; TEMP 97.2
== END 2019-01-30 15:56 | disposition home or self-care (01) | DRG 871 ==
LOC: ERS 16:24 → CCU 20:15 → SURG B 01-23 17:28 → T4-B 01-26 18:22
PROVIDERS: ADMIT Internal Medicine; ATTEND Internal Medicine
PROC: 5A1945Z Respiratory Ventilation, 24-96 Consecutive Hours (ICD-10-PCS; 2019-01-20)
PROC: 0BH17EZ Insertion of Endotracheal Airway into Trachea, Via Natural or Artificial Opening (ICD-10-PCS; 2019-01-20)
PROC: 3E033XZ Introduction of Vasopressor into Peripheral Vein, Percutaneous Approach (ICD-10-PCS; 2019-01-20)
PROC: 0DB78ZX Excision of Stomach, Pylorus, Via Natural or Artificial Opening Endoscopic, Diagnostic (ICD-10-PCS; principal; 2019-01-28)
PROC: 0DBM8ZX Excision of Descending Colon, Via Natural or Artificial Opening Endoscopic, Diagnostic (ICD-10-PCS; 2019-01-28)
DX: A41.9 Sepsis, unspecified organism (principal); I21.A1 Myocardial infarction type 2; J96.01 Acute respiratory failure with hypoxia; R65.21 Severe sepsis with septic shock; G93.41 Metabolic encephalopathy; J69.0 Pneumonitis due to inhalation of food and vomit; I50.33 Acute on chronic diastolic (congestive) heart failure; E87.2 Acidosis; I47.2 Ventricular tachycardia; E87.1 Hypo-osmolality and hyponatremia; K55.1 Chronic vascular disorders of intestine; N17.9 Acute kidney failure, unspecified; F32.9 Major depressive disorder, single episode, unspecified; F41.9 Anxiety disorder, unspecified; G40.909 Epilepsy, unspecified, not intractable, without status epilepticus; K59.00 Constipation, unspecified; G89.29 Other chronic pain; N18.3 Chronic kidney disease, stage 3 (moderate); D63.1 Anemia in chronic kidney disease; K25.9 Gastric ulcer, unspecified as acute or chronic, without hemorrhage or perforation; E11.42 Type 2 diabetes mellitus with diabetic polyneuropathy; I12.9 Hypertensive chronic kidney disease with stage 1 through stage 4 chronic kidney disease, or unspecified chronic kidney disease; E83.42 Hypomagnesemia; E87.6 Hypokalemia; R11.0 Nausea; Z79.4 Long term (current) use of insulin; Z90.710 Acquired absence of both cervix and uterus; Z90.49 Acquired absence of other specified parts of digestive tract
CPT/HCPCS: 36415; 36416; 36556; 51702; 70450; 71045; 80048; 80053; 80306; 80307; 81003; 81015; 82274; 82550; 82553; 82805; 83605; 83735; 84100; 84443; 84484; 85025; 87040; 87071; 87086; 87324; 87449; 88305; 88312; 93005; 93306; 94002; 94003; 95816; 95819; 96361; 96365; 96366; 96368; 96374; 96375; J0171; J0282; J0692; J1610; J1650; J1720; J1940; J2060; J2270; J2405; J2543; J2704; J3370; J3475; J3480; J3490; J7050; J7070; J7620; S0028

== ENCOUNTER 2019-03-17 11:38 | Emergency (ER) | payer SELFPAY ==
[2019-03-17 13:53] LABS: Hemoglobin 13.7 g/dL (12.0-16.0); Mean Corpuscular HGB CONC 32.7 g/dL (32.0-36.0); Mean Corpuscular Hemoglobin 28.7 pg (27.0-31.0); Mean Corpuscular Volume 87.8 fL (78.0-98.0); Mean Platelet Volume 8.2 fL (7.4-10.4); Platelet Count 193 thou/uL (130-400); RBC Distribution Width 12.7 % (11.5-14.5); Red Blood Cell (RBC) Count 4.76 mill/uL (4.20-5.40); White Blood Cell (WBC) Count 4.9 thou/uL (4.8-10.8)
[2019-03-17 14:15] LABS: Band 1 % (5-11); Eosinophils 13 % (0-10); Lymphocytes 39 % (21-51); MDiff Complete? YES; Monocytes 5 % (0-10); Neutrophil 41 % (42-75); Platelet Morphology Comment Appears Adequate; RBC Morphology Normal
[2019-03-17 14:18] LABS: ALT (SGPT) 35 U/L (8-55); AST (SGOT) 80 U/L (5-34); Albumin 4.1 g/dL (3.5-5.0); Alkaline Phosphatase 332 U/L (40-110); Anion Gap 15 mmol/L (10-20); BUN (Urea Nitrogen) 7 mg/dL (9.8-20.1); Bilirubin, Total 0.4 mg/dL (0.2-1.2); CK (CPK) 112 U/L (29-168); Calc. Creatinine Clearance 0 mL/min (70-130); Calcium 9.4 mg/dL (7.8-10.44); Carbon Dioxide 20 mmol/L (22-29); Chloride 107 mmol/L (98-107); Estimated GFR-MDRD 55; Globulin 3.4 g/dL (2.4-3.5); Glucose 104 mg/dL (70-105); Potassium 4.6 mmol/L (3.5-5.1); Protein, Total 7.5 g/dL (6.0-8.3); Sodium 137 mmol/L (136-145)
== END 2019-03-17 16:12 | disposition home or self-care (01) ==
LOC: ERS 11:38
DX: R20.2 Paresthesia of skin (principal); E87.1 Hypo-osmolality and hyponatremia; I10 Essential (primary) hypertension; F32.9 Major depressive disorder, single episode, unspecified; F41.9 Anxiety disorder, unspecified; F41.0 Panic disorder [episodic paroxysmal anxiety]; Z79.899 Other long term (current) drug therapy; Z79.891 Long term (current) use of opiate analgesic
CPT/HCPCS: 36415; 80053; 82550; 83735; 85025; 99284

== ENCOUNTER 2019-06-12 14:00 | Inpatient (IN) | payer SELFPAY ==
[~2019-06-12 14:00] MED LIST: Iopamidol-370 76% 500 ML 1 ML ONE
[2019-06-12 14:22] LABS: #Basophils 0.1 thou/uL (0.0-0.2); #Eosinphils 0.3 thou/uL (0.0-0.7); #Lymphocytes 1.6 thou/uL (1.20-3.40); #Monocytes 0.6 thou/uL (0.11-0.59); #Neutrophils 3.7 thou/uL (1.40-6.50); %Basophils 0.9 % (0.0-1.0); %Eosinophils 4.1 % (0.0-10.0); %Lymphocytes 26.3 % (21.0-51.0); %Monocytes 9.8 % (0.0-10.0); Hemoglobin 12.6 g/dL (12.0-16.0); Mean Corpuscular HGB CONC 34.3 g/dL (32.0-36.0); Mean Corpuscular Hemoglobin 29.2 pg (27.0-31.0); Mean Corpuscular Volume 85.1 fL (78.0-98.0); Mean Platelet Volume 7.2 fL (7.4-10.4); Platelet Count 241 thou/uL (130-400); RBC Distribution Width 13.3 % (11.5-14.5); Red Blood Cell (RBC) Count 4.32 mill/uL (4.20-5.40); White Blood Cell (WBC) Count 6.2 thou/uL (4.8-10.8)
--- NOTE | 2019-06-12 14:28 | RAD ---
Portable chest: HISTORY: Mental status change COMPARISON: none FINDINGS: Lung aguilar are clear. Heart and mediastinum appear unremarkable. Vascularity is normal. Visualized osseous structures unremarkable. IMPRESSION: No acute finding
[2019-06-12 14:31] LABS: PTT 37.1 SEC (22.9-36.1); Prothrombin Time 13.3 SEC (12.0-14.7)
[2019-06-12 14:38] LABS: ALT (SGPT) 29 U/L (8-55); AST (SGOT) 46 U/L (5-34); Albumin 4.4 g/dL (3.5-5.0); Alkaline Phosphatase 296 U/L (40-110); Anion Gap 13 mmol/L (10-20); BUN (Urea Nitrogen) 10 mg/dL (9.8-20.1); Bilirubin, Total 0.6 mg/dL (0.2-1.2); CK (CPK) 78 U/L (29-168); Calc. Creatinine Clearance 0 mL/min (70-130); Calcium 9.4 mg/dL (7.8-10.44); Carbon Dioxide 25 mmol/L (22-29); Chloride 104 mmol/L (98-107); Estimated GFR-MDRD 51; Globulin 2.5 g/dL (2.4-3.5); Glucose 101 mg/dL (70-105); Potassium 3.5 mmol/L (3.5-5.1); Protein, Total 6.9 g/dL (6.0-8.3); Sodium 138 mmol/L (136-145)
[2019-06-12 14:41] LABS: Alcohol Less than 10 mg/dL (Less than 10); Salicylate Less than 8.0 mg/dL (15.0-30.0)
--- NOTE | 2019-06-12 14:50 | CT ---
Exam: Head CT without contrast HISTORY: Right facial droop. Bilateral weakness and numbness.. COMPARISON: 01/20/2019 FINDINGS: Hemorrhage: No intraparenchymal hemorrhage or extra-axial hematoma. Brain parenchyma: Cortical tam-white matter differentiation is preserved. No mass effect or midline shift. Basilar cisterns are patent.Hypoattenuation involving the left lentiform nucleus and left caudate nucleus. Findings have developed since the previous examination and may represent indetermina te lacunar infarct with respect to the left caudate nucleus as well has a more chronic appearing infarct involving the medial left lentiform nucleus. Brain MRI may be beneficial. Ventricular system: Ventricles and sulci are patent and symmetric. Calvarium: Intact. Sinuses and mastoid air cells: Adequate aeration. IMPRESSION: 1. Small lacunar infarcts involving the left deep tam matter structures. MRI may be beneficial. Results of study discussed with Dr. Shearer 06/12/2019 at 2:47 PM Code CR
--- NOTE | 2019-06-12 15:16 | CT ---
EXAM: CT ANGIOGRAM OF THE HEAD AND NECK INDICATION: Stroke. Numbness onset Saturday after getting home from hospital. Difficulty ambulating. Weakness an d numbness on both sides. COMPARISON: 01/09/2018. TECHNIQUE: CT angiogram of the head and neck are performed in the axial plane. Three-dimensional refo rmatted images are submitted for interpretation. FINDINGS: CTA OF THE HEAD WITH AND WITHOUT CONTRAST: POSTCONTRAST CT OF BRAIN: Pathologic enhancement: No pathologic enhancement the brain. Postcontrast soft tissue neck CT: Sinuses: Adequate aeration of the visualized sinuses and mastoid air cells. Orbits: Bilateral ocular lens implants are appropriately located. Both globes are intact. Retrobulbar fat is preserved. Symmetric attenuation the optic nerves and ocular rectus muscles. Salivary glands:Symmetric fatty attenuation of the parotid glands. Symmetric attenuation of the subma ndibular glands. Thyroid gland: Unremarkable. Lymph nodes: No evidence of lymphadenopathy by size criteria. Paraspinal muscles: Symmetric attenuation of the sternocleidomastoid muscles. Appropriate attenuation of the paraspinal muscles. Cervical spine:Vertebral body height is maintained. No fracture. No significant central canal stenosi s or significant neural foraminal narrowing. Limited evaluation by technique. Upper mediastinum and lung apices: Dependent atelectatic changes in the visualized lung parenchyma. CTA OF THE NECK WITH CONTRAST: Aorta: Appropriate enhancement and luminal diameter. Right carotid artery: Appropriate enhancement and luminal diameter of the origin of the right carotid artery, an innominate artery, common carotid artery, carotid bifurcation and internal carotid artery. Left carotid: Appropriate enhancement and luminal diameter of the origin of the left carotid artery, common carotid artery, carotid bifurcation and internal carotid artery. Stable calcified plaque in the left carotid bifurcation. Subclavian arteries:Symmetric attenuation. Vertebral arteries:Both vertebral arteries are patent throughout their course in the neck. The right vertebral artery is dominant. The left vertebral artery origin is directly from the aortic arch. CTA OF THE BRAIN: Intracranial internal carotid arteries:Appropriate enhancement and luminal diameter. No significant s tenosis.. Anterior circulation: Congenitally absent right A1 segment is redemonstrated. Appropriate enhancement of the proximal A2 segments. Bilateral M1 segments, proximal MCA branches have appropriate enhancement and luminal diameter. Left A1 segment has appropriate enhancement and luminal diameter Intracranial vertebral arteries: Both intracranial vertebral arteries are patent. Both PICA artery or igins are unremarkable. Posterior circulation: Both vertebral arteries supply stable diminutive basilar artery. The left P1 s egment has appropriate enhancement and luminal diameter. The right [employer] has a origin. IMPRESSION: No hemodynamically significant stenosis, occlusion or aneurysmal formation. Results of the study discussed with Dr. Shearer 06/12/2019 at 3:16 PM Code CR Transcribed Date/Time: 06/12/2019 3:29 PM
[2019-06-12 15:21] LABS: Bilirubin Negative (Negative); Blood, Urine Negative (Negative); Clarity Clear (Clear); Glucose, Urine (Dipstick) Normal (Negative); Leukocyte Negative Leu/uL (Negative); Nitrite Negative (Negative); Protein, Urine (Dipstick) Negative (Neg-Trace); Urobilinogen Normal mg/dL (Less than 2)
[2019-06-12 15:28] LABS: Amphetamine Not Detected (NotDetected); Cocaine Metabolite Screen Not Detected (NotDetected); Medtox Reader # READER 1; Methamphetamine Not Detected (NotDetected); Opiate Screen Not Detected (NotDetected); Phencyclidine (PCP) Not Detected (NotDetected); THC/Cannabinoid Screen Not Detected (NotDetected)
[2019-06-12 15:29] LABS: Barbiturates Screen Not Detected (NotDetected); Benzodiazepine Screen Detected (NotDetected); Medtox Control Line Valid? VALID (VALID); Methadone Not Detected (NotDetected); Oxycodone Screen Not Detected (NotDetected); Tricyclic Screen Not Detected (NotDetected)
[2019-06-12] MEDS ORDERED: Aspirin Chewable 81 MG TAB ONE (15:45)
[2019-06-12] MEDS ORDERED: Acetaminophen 650 MG Suppository PR PRN (17:34)
--- NOTE | 2019-06-12 17:43 | PDOC.HHP ---
Hospitalist HPI - History of Present Illness numbes and falling down History of Present Illness: patient is a poor historian, not present at the moment of my evaluation , she seems somewhat sedated and her tox screen is positive for benzo and uses gabapentin Case of an 58y/o female with pmxh of MDD and chronic back pain who comes to hopsital after having numbness of her legs since Saturday, this is not a new finding but apparently has worsen and is having multiple episodes of falling down. patient refers she was on her usual state of health when today while trying to walk was falling backwards, this happened on multiple occasions, about 4 times, hitting her head in the process for which got concern, due to this been of new onset for which she was brought to hospital for evaluation. at ED patient was evaluated with a head ct which shown an lacunar infarct not seen on previous cts. patient denies any focal motor deficiet, does refers some generalize weakness and numbes of her legs bilaterally. states this has never happened before, deneis any LOC, palpitations or focal motor deficet. Hospitalist ROS - Review of Systems All other systems reviewed; all pertinent +/- noted in HPI/Subj Hospitalist History - Past Medical History Psych: reports: Depression - Exam Eye: PERRL, anicteric sclera ENT: normocephalic atraumatic, no oropharyngeal lesions Neck: supple, symmetric, no JVD, no thyromegaly Heart: RRR, no murmur, no gallops Respiratory: CTAB, no wheezes, no rales, no ronchi Gastrointestinal: soft, non-tender, non-distended, normal bowel sounds Extremities: no cyanosis, no clubbing, no edema Skin: normal turgor, no lesions, no rashes Neurological: cranial nerve grossly intact Neurological - other findings: b/l leg numbness Musculoskeletal: generalized weakness Psychiatric: A&O x 3, somnolent Hospitalist Results - Labs Result Diagrams: 06/12/19 14:09 06/12/19 14:09 Lab results: WBC 6.2 thou/uL (4.8-10.8) 06/12/19 14:09 Hgb 12.6 g/dL (12.0-16.0) 06/12/19 14:09 Hct 36.8 % (36.0-47.0) 06/12/19 14:09 MCV 85.1 fL (78.0-98.0) 06/12/19 14:09 Plt Count 241 thou/uL (130-400) 06/12/19 14:09 Neutrophils % 59.0 % (42.0-75.0) 06/12/19 14:09 Sodium 138 mmol/L (136-145) 06/12/19 14:09 Potassium 3.5 mmol/L (3.5-5.1) 06/12/19 14:09 Chloride 104 mmol/L (98-107) 06/12/19 14:09 Carbon Dioxide 25 mmol/L (22-29) 06/12/19 14:09 BUN 10 mg/dL (9.8-20.1) 06/12/19 14:09 Creatinine 1.09 mg/dL (0.6-1.1) 06/12/19 14:09 Glucose 101 mg/dL (70-105) 06/12/19 14:09 Calcium 9.4 mg/dL (7.8-10.44) 06/12/19 14:09 Total Bilirubin 0.6 mg/dL (0.2-1.2) 06/12/19 14:09 AST 46 U/L (5-34) H 06/12/19 14:09 ALT 29 U/L (8-55) 06/12/19 14:09 Alkaline Phosphatase 296 U/L (40-110) H 06/12/19 14:09 Creatine Kinase 78 U/L (29-168) 06/12/19 14:09 Troponin I Less than 0.010 ng/mL (< 0.028) 06/12/19 14:09 Serum Total Protein 6.9 g/dL (6.0-8.3) 06/12/19 14:09 Albumin 4.4 g/dL (3.5-5.0) 06/12/19 14:09 Urine Ketones Negative mg/dL (Negative) 06/12/19 15:05 Urine Blood Negative (Negative) 06/12/19 15:05 Urine Nitrite Negative (Negative) 06/12/19 15:05 Ur Leukocyte Esterase Negative Aury/uL (Negative) 06/12/19 15:05 - Radiology Interpretation CT scan - head Status: report reviewed by me Additional Comment: lacunar infact involving deep sin matter Hospitalist H&P A/P - Problem (1) Ischemic stroke Code(s): I63.9 - CEREBRAL INFARCTION, UNSPECIFIED Status: Acute (2) Anxiety and depression Code(s): F41.9 - ANXIETY DISORDER, UNSPECIFIED; F32.9 - MAJOR DEPRESSIVE DISORDER, SINGLE EPISODE, UNSPECIFIED Status: Chronic (3) Hypertension Code(s): I10 - ESSENTIAL (PRIMARY) HYPERTENSION Status: Acute - Plan Plan: -admit to stroke unit - neurologist consulted - head mri - cta done w/o any significant carotid stenosis b/l - f/u 2decho - asa 81mg two tabs pod for secondary prevention - high intensity statin for secondary stroke prevention - permissive hypertension, patient did not refered htn as pmhx but on medication review, uses lisinopril, none the less will hold for now -continue home meds for chronic conditons - lipid panel and a1c to evaluate modifiable risk factors - telemetry to detected any hidden arrhythmias -dvt prohylaxis
[2019-06-12 18:24] VITALS: BMI 29.7
[2019-06-12] MEDS: HYDROcodone/Acetaminophen 5/325 mg Tablet PO PRN (18:40)
[2019-06-12 18:45] LABS: Troponin I Less than 0.010 ng/mL (< 0.028)
[2019-06-12] MEDS: Acetaminophen 325 MG TAB PO PRN (21:29)
[2019-06-12] MEDS: Atorvastatin Calcium 40 MG TAB PO SCH (21:29)
[2019-06-13] MEDS: Acetaminophen 325 MG TAB PO PRN (03:46)
[2019-06-13] MEDS: HYDROcodone/Acetaminophen 5/325 mg Tablet PO PRN ×4 (04:59→22:52)
[2019-06-13 05:22] LABS: #Basophils 0.1 thou/uL (0.0-0.2); #Eosinphils 0.4 thou/uL (0.0-0.7); #Lymphocytes 1.6 thou/uL (1.20-3.40); #Monocytes 1.1 thou/uL (0.11-0.59); #Neutrophils 4.6 thou/uL (1.40-6.50); %Basophils 0.9 % (0.0-1.0); %Eosinophils 5.4 % (0.0-10.0); %Lymphocytes 20.8 % (21.0-51.0); %Monocytes 14.3 % (0.0-10.0); %Neutrophils 58.7 % (42.0-75.0); Hemoglobin 12.5 g/dL (12.0-16.0); Mean Corpuscular HGB CONC 34.2 g/dL (32.0-36.0); Mean Corpuscular Hemoglobin 29.4 pg (27.0-31.0); Mean Corpuscular Volume 85.9 fL (78.0-98.0); Mean Platelet Volume 7.4 fL (7.4-10.4); Platelet Count 216 thou/uL (130-400); RBC Distribution Width 13.3 % (11.5-14.5); Red Blood Cell (RBC) Count 4.24 mill/uL (4.20-5.40); White Blood Cell (WBC) Count 7.8 thou/uL (4.8-10.8)
[2019-06-13 05:31] LABS: ALT (SGPT) 26 U/L (8-55); AST (SGOT) 36 U/L (5-34); Alkaline Phosphatase 270 U/L (40-110); Anion Gap 12 mmol/L (10-20); BUN (Urea Nitrogen) 7 mg/dL (9.8-20.1); Bilirubin, Total 0.6 mg/dL (0.2-1.2); Calc. Creatinine Clearance 77 mL/min (70-130); Carbon Dioxide 22 mmol/L (22-29); Cardiac Risk 8.7 (Less than 4.5); Chloride 108 mmol/L (98-107); Cholesterol 340 mg/dl (< 200 Desired); Estimated GFR-MDRD 70; Globulin 2.4 g/dL (2.4-3.5); Glucose 88 mg/dL (70-105); HDL Cholesterol 39 mg/dL (>60 Neg Risk); LDL Cholesterol, Calculated 247 mg/dL; Potassium 3.3 mmol/L (3.5-5.1); Protein, Total 6.4 g/dL (6.0-8.3); Sodium 139 mmol/L (136-145); Triglycerides 271 mg/dL (Less than 150)
[2019-06-13] MEDS: Aspirin 81 mg Enteric Coated Tablet PO SCH (09:36)
[2019-06-13] MEDS: Enoxaparin Sodium 40 MG/0.4 ML SYRINGE SC SCH (09:37)
--- NOTE | 2019-06-13 10:51 | PDOC.HOSPP ---
- Subjective Encounter Date: 06/13/19 Encounter Time: 10:30 Subjective: The patient reports having multiple falls over the past one week. She was on gabapentin 900 mg and it was weaned down to 600 recently. She takes clonazepam for anxiety and multiple other psychiatric medications. She states when she stands up she feels weak and her legs give out. - Objective Vital Signs & Weight: Vital Signs (12 hours) Temp Pulse Resp BP Pulse Ox 06/13/19 07:51 98.4 F 58 L 13 101/57 L 95 06/13/19 03:32 97.4 F L 54 L 16 106/50 L 97 06/12/19 23:29 97.6 F 59 L 16 102/55 L 97 Weight Weight 147 lb Result Diagrams: 06/13/19 05:00 06/13/19 05:00 Additional Labs: Accuchecks 06/12/19 14:12 POC Glucose 114 H Hospitalist ROS - Review of Systems Constitutional: denies: fever, chills Eyes: denies: pain, vision change - Medication Medications: Active Medications Generic Name Dose Route Start Last Admin Trade Name Freq PRN Reason Stop Dose Admin Acetaminophen 650 mg 06/12/19 17:34 06/13/19 03:46 Tylenol PO 650 mg Q4H PRN Administration Headache/Fever/Mild Pain (1-3) Hydrocodone Bitart/Acetaminophen 1 tab 06/12/19 17:34 06/13/19 04:59 [place]n 5/325 PO 1 tab Q4H PRN Administration Moderate Pain (4-6) Aspirin 162 mg 06/13/19 09:00 06/13/19 09:36 Ecotrin PO 162 mg DAILY YOLANDA Administration Atorvastatin Calcium 40 mg 06/12/19 21:00 06/12/19 21:29 Lipitor PO 40 mg HS YOLANDA Administration Enoxaparin Sodium 40 mg 06/13/19 09:00 06/13/19 09:37 Lovenox SC 40 mg 0900 YOLANDA Administration - Exam General Appearance: NAD, awake alert Eye: PERRL, anicteric sclera Neck: no JVD Neck - other findings: neck tenderness ordered Heart: RRR, normal peripheral pulses Respiratory: CTAB, no wheezes, no rales Gastrointestinal: soft, non-tender, non-distended Extremities: no cyanosis, no clubbing, no edema Skin: normal turgor, no lesions, no rashes Neurological: cranial nerve grossly intact, normal sensation to touch, no focal deficits, no new deficit Neurological - other findings: diminished sensation bilateral lower feet. Slight upgoing Bab right, mute L Musculoskeletal - other findings: RUE 4/5, LUE 5/5, RLE 5/5, LLE 5/5. Mild right pronator drift Psychiatric: normal affect, flat affect Hosp A/P - Plan CT head: no acute disease. Old lacunar infarct left side CTA : no significant stenosis Chest X ray: negative ECHO; mild TR. EF 55-60% This is a 58 year old male patient with past medical history of depression who presented with frequent falls Frequent falls/generalized weakness - had some mild RUE weakness on exam. MRI brain pending - neurology consulted, does not think this is stroke - could be iatrogenic from multiple psychiatric medications. Advised pt to wean off clonazepam - PT evaluation is recommending rehab - ECHO unremarkable Peripheral neuropathy in feet - syphilis negative - check vitamin B12 - MRI lumbar spine ordered, cervical spine and thoracic spine Hypokalemia - potassium 3.3, replace with 40 meq of potassium COde status: full code
[2019-06-13 12:35] LABS: Syphilis Antibody Nonreactive (Nonreactive); Syphilis Antibody Index 0.04 S/CO (<1.00 Non-Reactive)
[2019-06-13] MEDS ORDERED: Potassium Chloride 20 MEQ TAB PO SCH (13:15)
[2019-06-13] MEDS: Lorazepam 0.5 MG TAB PO PRN (15:09)
--- NOTE | 2019-06-13 17:37 | CON ---
DATE OF CONSULTATION: CHIEF COMPLAINT: Numbness. HISTORY OF PRESENT ILLNESS: The patient is a 58-year-old lady with severe chronic back pain and depression. She had complained of numbness and went to her regular MD on . She could not move her legs and her legs were very weak. She has bruising throughout her body per the patient. The patient's family member stated she could not move well. Therefore, they brought her into the hospital. PREVIOUS MEDICAL HISTORY: Positive for chronic back pain, depression. PAST SURGICAL HISTORY: Positive for hysterectomy in 1983 for endometriosis. FAMILY HISTORY: Mother is 79. She always has chronic back pain as well. Father at 82. He had chest pain and when having coronary artery bypass graft. Her brother and sister also . Brother passed at 42 from an OR. Sister passed from an OD at 36. The patient has 2 children, 42 and 37. SOCIAL HISTORY: She does not smoke. She does not drink. She is a homemaker. MEDICATIONS: Include; 1. Aspirin. 2. Statin. 3. Lovenox along with Ativan. REVIEW OF SYSTEMS: PULMONARY: Negative for shortness of breath or cough. GI: Negative for nausea, vomiting, or diarrhea. OPHTHALMOLOGIC: Negative for any vision symptoms. NEUROLOGIC: Positive for chronic pain as well as numbness throughout the body plus weakness. DERMATOLOGIC: Positive for skin bruising. LABORATORY DATA: Her lab workup; white count is 7.8, hemoglobin 12.5, hematocrit 36.4, platelet count 216. Her chemistries; sodium 139, potassium 3.3, chloride 108, bicarb 22, BUN 7, creatinine 0.83, glucose 88. Triglycerides 271, cholesterol 340, HDL 39, LDL 247. Her MRI of the brain was pending. She did have a CT of [place] of [place], which was completed and there was no hemodynamically significant stenosis. Echocardiogram was also completed and there was no evidence of any thrombi. PHYSICAL EXAMINATION: VITAL SIGNS: Temperature 98.4, pulse 65, respiratory rate 16, O2 saturations 95, blood pressure 113/57. GENERAL APPEARANCE: Well-built, well-nourished lady who is in bed, looks uncomfortable. CHEST: Clear vesicular breathing. CARDIOVASCULAR: S1, S2 heard. No murmurs. ABDOMEN: Soft. NEUROLOGIC: Higher intellectual functions. Normal orientation to time, place and person, and flat affect. Cranial nerves; normal extraocular movements. No facial asymmetry. Normal sensation of face bilaterally. Tongue midline. No atrophy noted. Normal elevation of palate, and normal hearing. Motor; bulk normal, tone normal. Strength 4/5 throughout in upper and lower extremities. Decreased effort due to pain. Muscle groups tested deltoid, biceps, triceps, wrist extension and flexion, finger extension and flexion bilaterally. Deep tendon reflexes were absent. Cerebellar, normal [id number] and [id number]. Sensory was normal. IMPRESSION: The patient with diffuse generalized numbness and weakness. She has chronic back pain and depression. We are unable to find any specific focality to the weakness, which could be suggestive of a cerebrovascular accident. At this time, I think she is having chronic pain and has some sequela of chronic pain with decreased effort and fatigue. RECOMMENDATIONS: Please consult Pain Management. I will follow up on the MRI scans that were already ordered. Job ID: [id number]
[2019-06-13] MEDS: Atorvastatin Calcium 40 MG TAB PO SCH (20:14)
[2019-06-13] MEDS ORDERED: Baclofen 10 MG TAB PO PRN (21:58)
[2019-06-14] MEDS: HYDROcodone/Acetaminophen 5/325 mg Tablet PO PRN ×4 (03:21→22:18)
[2019-06-14 04:54] LABS: Hemoglobin 12.1 g/dL (12.0-16.0); Mean Corpuscular HGB CONC 34.9 g/dL (32.0-36.0); Mean Corpuscular Hemoglobin 29.8 pg (27.0-31.0); Mean Corpuscular Volume 85.5 fL (78.0-98.0); Mean Platelet Volume 7.6 fL (7.4-10.4); Platelet Count 196 thou/uL (130-400); RBC Distribution Width 13.4 % (11.5-14.5); Red Blood Cell (RBC) Count 4.06 mill/uL (4.20-5.40); White Blood Cell (WBC) Count 7.8 thou/uL (4.8-10.8)
[2019-06-14 05:13] LABS: Anion Gap 14 mmol/L (10-20); BUN (Urea Nitrogen) 5 mg/dL (9.8-20.1); Calc. Creatinine Clearance 77 mL/min (70-130); Calcium 8.8 mg/dL (7.8-10.44); Carbon Dioxide 23 mmol/L (22-29); Chloride 104 mmol/L (98-107); Estimated GFR-MDRD 70; Glucose 111 mg/dL (70-105); Potassium 3.5 mmol/L (3.5-5.1); Sodium 137 mmol/L (136-145)
[2019-06-14] MEDS: Aspirin 81 mg Enteric Coated Tablet PO SCH (09:05)
[2019-06-14] MEDS: Acetaminophen 325 MG TAB PO PRN (09:07)
[2019-06-14] MEDS: Citalopram 20 MG TAB PO SCH (09:07)
[2019-06-14] MEDS: Enoxaparin Sodium 40 MG/0.4 ML SYRINGE SC SCH (09:08)
[2019-06-14] MEDS: Lorazepam 0.5 MG TAB PO PRN (09:37)
--- NOTE | 2019-06-14 11:21 | MRI ---
MRI brain without IV contrast: Multiplanar and multisequential imaging of brain obtained according to protocol. INDICATIONS: Assess for stroke COMPARISON: none FINDINGS: Ventricles have normal size shape and position. No evidence of restricted diffusion. Mild chronic ischemic white matter change. No evidence of mass or edema. Intracranial internal carotid arteries, proximal cerebral arteries, and basilar arteries show normal flow voids. Dural venous sinuses appear patent. Visualized paranasal sinuses and mastoids appear clear. Orbits appear unremarkable. Bony calvarium and soft tissues of the scalp appear unremarkable. IMPRESSION: Very mild chronic white matter changes. No evidence of acute infarct.
--- NOTE | 2019-06-14 11:49 | MRI ---
MRI CERVICAL SPINE WITHOUT CONTRAST: Date: 06/14/2019 INDICATION: Neck pain. Right arm weakness. FINDINGS: Cervical vertebra maintain normal height and alignment. Mild loss of disc space at C5-6 and C6-7. Mil d degenerative osteophytes at these levels. No significant disc bulge or spondylosis seen at C2-3 or C3-4. No central canal or foraminal stenosis at either of these levels. At C4-5, there is mild disc bulge and spondylosis which flattens the thecal sac and mildly effaces th e anterior subarachnoid space. No cord impingement. No central canal or foraminal stenosis. At C5-6, mild disc bulge and spondylosis flattens the thecal sac and effaces the anterior subarachnoi d space. The findings are slightly more pronounced paracentrally and to the right. These changes abut the anterior cord on the right. Mild right foraminal encroachment due to the spondylosis and uncinat e hypertrophy. At C6-7, minimal disc bulge and spondylosis. Anterior subarachnoid space is preserved. No central can al or foraminal stenosis. At C7-T1, there is no significant abnormality. Cervical cord signal is normal. IMPRESSION: Disc bulge and spondylosis most pronounced at C5-6 centrally and to the right as described above. POS: [facility]
--- NOTE | 2019-06-14 12:21 | PDOC.HOSPP ---
- Subjective Encounter Date: 06/14/19 Encounter Time: 10:00 Subjective: THe patient continues to complain of numbness in her legs and frequent falls. She has no new complaints. No speech deficits. MRI brain ordered for today. She does complain of back pain - Objective Vital Signs & Weight: Vital Signs (12 hours) Temp Pulse Resp BP BP Pulse Ox 06/14/19 09:38 59 L 104/51 L 06/14/19 07:55 97.7 F 67 16 99/59 L 97 06/14/19 03:14 98.4 F 76 16 105/59 L 97 Weight Admit Weight 147 lb Weight 147 lb I&O: 06/13/19 06/14/19 06/15/19 06:59 06:59 06:59 Intake Total 120 Balance 120 Result Diagrams: 06/14/19 04:23 06/14/19 04:23 Hospitalist ROS - Review of Systems Constitutional: denies: fever, chills - Medication Medications: Active Medications Generic Name Dose Route Start Last Admin Trade Name Freq PRN Reason Stop Dose Admin Acetaminophen 650 mg 06/12/19 17:34 06/14/19 09:07 Tylenol PO 650 mg Q4H PRN Administration Headache/Fever/Mild Pain (1-3) Hydrocodone Bitart/Acetaminophen 1 tab 06/12/19 17:34 06/14/19 03:21 Thornton 5/325 PO 1 tab Q4H PRN Administration Moderate Pain (4-6) Aspirin 162 mg 06/13/19 09:00 06/14/19 09:05 Ecotrin PO 162 mg DAILY YOLANDA Administration Atorvastatin Calcium 40 mg 06/12/19 21:00 06/13/19 20:14 Lipitor PO 40 mg HS YOLANDA Administration Citalopram Hydrobromide 40 mg 06/14/19 09:00 06/14/19 09:07 Celexa PO 40 mg DAILY YOLANDA Administration Enoxaparin Sodium 40 mg 06/13/19 09:00 06/14/19 09:08 Lovenox SC 40 mg 0900 YOLANDA Administration Lorazepam 0.5 mg 06/13/19 10:25 06/14/19 09:37 Ativan PO 0.5 mg Q6H PRN Administration Anxiety Sodium Chloride 10 ml 06/12/19 17:34 06/13/19 20:14 Flush - Normal Saline IVF 10 ml PRN PRN Administration Saline Flush - Exam General Appearance: NAD, awake alert Eye: PERRL, anicteric sclera ENT: no oropharyngeal lesions Neck: supple, no JVD Heart: RRR, no murmur, no gallops, no rubs Respiratory: CTAB, no wheezes, no rales, no ronchi Gastrointestinal: soft, non-tender, non-distended, normal bowel sounds Extremities: no cyanosis, no clubbing, no edema Skin: normal turgor, no lesions, no rashes Neurological: cranial nerve grossly intact, no focal deficits. negative: no new deficit, facial droop Neurological - other findings: RUE 4/5, LUE 5/5, LLE 5/5, RLE 5/5 Musculoskeletal - other findings: Paraspinal tenderness on back. Psychiatric: normal affect, normal behavior, A&O x 3 Hosp A/P - Plan CT head: no acute disease. Old lacunar infarct left side CTA : no significant stenosis Chest X ray: negative ECHO; mild TR. EF 55-60% This is a 58 year old male patient with past medical history of depression who presented with frequent falls Frequent falls/generalized weakness - had some mild RUE weakness on exam. CTA brain showed no stenosis, CT head negative, MRI brain showed no stroke , MRI cervical spine showing spondylosis most pronounced at C5-C6 centrally. Will consult neurosurgery - neurology consulted, recommended pain management. - holding gabapentin for now and benzos due to multiple falls - PT evaluation is recommending rehab - ECHO unremarkable Peripheral neuropathy in feet possibly from DJD - syphilis negative - vitamin B12 normal - MRI cervical spine shows spondylosis worst at C5 to C6. Thoracic and lumbar spine pending Hypokalemia -resolved Dispo: may need rehab COde status: full code
--- NOTE | 2019-06-14 12:46 | MRI ---
MRI THORACIC SPINE WITHOUT CONTRAST: Date: 06/14/2019 INDICATION: Neuropathy in lower extremities. FINDINGS: Thoracic vertebral maintain normal height and alignment. Disc spaces are preserved. Vertebral body si gnal is normal. There is no evidence of disc bulge or protrusion at any of the thoracic levels. Thora cic cord signal is normal. No evidence of central canal or foraminal stenosis at any of the thoracic levels. IMPRESSION: Unremarkable MRI of thoracic spine. POS: [facility]
--- NOTE | 2019-06-14 13:11 | MRI ---
MRI LUMBAR SPINE WITHOUT CONTRAST: Date: 06/14/2019 INDICATION: Numbness in feet. Falls. FINDINGS: Lumbar vertebra maintain height and alignment. Degenerative disc changes are seen at L3-4 disc space. There is slight anterolisthesis at L3-4. At L1-2, no significant disc abnormality. Mild facet hypertrophy. No central canal or foraminal steno sis. At L2-3, mild disc bulge. Mild to moderate facet hypertrophy. Mild central canal stenosis. Asymmetric disc bulge to the right produces mild right foraminal encroachment. At L3-4, there is slight anterolisthesis. Diffuse disc bulge. Facet arthrosis and hypertrophy. Modera te to severe central canal stenosis. Bilateral foraminal stenosis. At L4-5, broad based disc bulge. Prominent facet arthrosis and hypertrophy. Moderate central canal st enosis. Bilateral foraminal narrowing. At L5-S1, no significant disc bulge. No central canal or foraminal stenosis. IMPRESSION: Central canal stenosis as noted above at L2-3, L3-4, and L4-5 levels. Findings are most severe at L3- 4 as noted above. POS: [facility]
[2019-06-14] MEDS: Atorvastatin Calcium 40 MG TAB PO SCH (22:10)
[2019-06-15] MEDS: Acetaminophen 325 MG TAB PO PRN (03:28)
[2019-06-15 04:59] LABS: Hemoglobin 11.8 g/dL (12.0-16.0); Mean Corpuscular Hemoglobin 30.3 pg (27.0-31.0); Mean Corpuscular Volume 86.6 fL (78.0-98.0); Mean Platelet Volume 7.8 fL (7.4-10.4); Platelet Count 189 thou/uL (130-400); RBC Distribution Width 13.5 % (11.5-14.5); White Blood Cell (WBC) Count 5.1 thou/uL (4.8-10.8)
[2019-06-15 05:15] LABS: Anion Gap 11 mmol/L (10-20); BUN (Urea Nitrogen) 5 mg/dL (9.8-20.1); Calc. Creatinine Clearance 73 mL/min (70-130); Calcium 9.2 mg/dL (7.8-10.44); Carbon Dioxide 24 mmol/L (22-29); Chloride 107 mmol/L (98-107); Estimated GFR-MDRD 67; Glucose 104 mg/dL (70-105); Potassium 3.3 mmol/L (3.5-5.1); Sodium 139 mmol/L (136-145)
[2019-06-15] MEDS ORDERED: Sodium Chloride 0.9% 500 ML IVPB SCH (06:15)
[2019-06-15] MEDS: Aspirin 81 mg Enteric Coated Tablet PO SCH (09:36)
[2019-06-15] MEDS: Citalopram 20 MG TAB PO SCH (09:36)
[2019-06-15] MEDS: HYDROcodone/Acetaminophen 5/325 mg Tablet PO PRN ×4 (09:36→22:36)
[2019-06-15] MEDS: Enoxaparin Sodium 40 MG/0.4 ML SYRINGE SC SCH (09:36)
[2019-06-15] MEDS: rOPINIRole HCl 0.25 MG TAB PO SCH ×3 (09:58→22:36)
[2019-06-15] MEDS: rOPINIRole HCl 0.5 MG TAB PO SCH ×3 (09:58→22:36)
--- NOTE | 2019-06-15 14:23 | PDOC.HOSPP ---
- Subjective Encounter Date: 06/15/19 Encounter Time: 12:00 Subjective: The patient continues to complain of 7/10 back pain. She has some pain radiating to her legs. Feels when she ambulates she is slightly unsteady still. She also complains of dizziness while standing and has to wait a few minutes before she gets up. This morning her BP was low at 77. She was given 500 cc bolus overnight. Orthostatics negative - Objective Vital Signs & Weight: Vital Signs (12 hours) Temp Pulse Pulse Pulse Resp BP BP 06/15/19 11:09 98.1 F 67 16 06/15/19 10:10 64 63 125/75 06/15/19 09:07 109/61 103/68 06/15/19 07:43 06/15/19 07:10 97.7 F 61 16 06/15/19 03:33 96.6 F L 70 14 06/15/19 02:25 63 BP BP BP Pulse Ox 06/15/19 11:09 114/68 98 06/15/19 10:10 116/68 06/15/19 09:07 06/15/19 07:43 102/56 L 06/15/19 07:10 91/51 L 96 06/15/19 03:33 87/59 L 97 06/15/19 02:25 89/59 L Weight Admit Weight 147 lb Weight 147 lb I&O: 06/14/19 06/15/19 06/16/19 06:59 06:59 06:59 Intake Total 120 Output Total 800 Balance 120 -800 Result Diagrams: 06/15/19 04:33 06/15/19 04:33 Hospitalist ROS - Review of Systems Constitutional: denies: fever, chills Respiratory: denies: cough, dry - Medication Medications: Active Medications Generic Name Dose Route Start Last Admin Trade Name Freq PRN Reason Stop Dose Admin Acetaminophen 650 mg 06/12/19 17:34 06/15/19 03:28 Tylenol PO 650 mg Q4H PRN Administration Headache/Fever/Mild Pain (1-3) Hydrocodone Bitart/Acetaminophen 1 tab 06/12/19 17:34 06/15/19 13:47 [place] 5/325 PO 1 tab Q4H PRN Administration Moderate Pain (4-6) Aspirin 162 mg 06/13/19 09:00 06/15/19 09:36 Ecotrin PO 162 mg DAILY YOLANDA Administration Atorvastatin Calcium 40 mg 06/12/19 21:00 06/14/19 22:10 Lipitor PO 40 mg HS YOLANDA Administration Citalopram Hydrobromide 40 mg 06/14/19 09:00 06/15/19 09:36 Celexa PO 40 mg DAILY YOLANDA Administration Enoxaparin Sodium 40 mg 06/13/19 09:00 06/15/19 09:36 Lovenox SC 40 mg 0900 YOLANDA Administration Lorazepam 0.5 mg 06/13/19 10:25 06/14/19 09:37 Ativan PO 0.5 mg Q6H PRN Administration Anxiety Ropinirole HCl 0.25 mg 06/15/19 09:00 06/15/19 09:58 Requip PO Not Given TID YOLANDA Ropinirole HCl 0.5 mg 06/15/19 09:00 06/15/19 09:58 Requip PO Not Given TID YOLANDA Sodium Chloride 10 ml 06/12/19 17:34 06/15/19 09:37 Flush - Normal Saline IVF 10 ml PRN PRN Administration Saline Flush - Exam General Appearance: NAD, awake alert Eye: PERRL, anicteric sclera ENT: normocephalic atraumatic, no oropharyngeal lesions Neck: supple, symmetric, no JVD, no thyromegaly Heart: RRR, no murmur, no gallops, no rubs Respiratory: CTAB, no wheezes, no rales, no ronchi Gastrointestinal: soft, non-tender, non-distended, normal bowel sounds, no palpable masses Extremities: no cyanosis, no clubbing, no edema Skin: normal turgor Neurological: cranial nerve grossly intact, normal sensation to touch, no focal deficits, no new deficit Musculoskeletal: normal tone, normal strength, no muscle wasting, diffuse muscle atrophy Psychiatric: normal affect, normal behavior, A&O x 3 Hosp A/P - Plan CT head: no acute disease. Old lacunar infarct left side CTA : no significant stenosis Chest X ray: negative ECHO; mild TR. EF 55-60% MRI lumbar spine: central canal stenosis at L2-L3, L3-L4, L4-L5 MRI Thoracic spine: disc bulge and spondylosis at C5-C6 This is a 58 year old male patient with past medical history of depression who presented with frequent falls Frequent falls/generalized weakness - pt has some dizziness standing, however orthostatics negative - had some mild RUE weakness on exam with MRI cervical spine showing spondylosis at C5-C6. CTA brain showed no stenosis, CT head negative, MRI brain showed no stroke , - neurology consulted, recommended pain management. - will resume gabapentin at lower dose - PT recommending rehab. ECHO unremarkable - ECHO unremarkable Peripheral neuropathy in feet possibly from DJD - syphilis negative - vitamin B12 normal - MRI cervical spine shows spondylosis worst at C5 to C6. MRI lumbar spin showing central stenosis from L2-L5. Per neursurgery will do outpatient evaluation - resume gabapentin 300 mg tid Anemia - Hb 11, will continue to monitor Hypokalemia - potassium 3.3, will replace Dispo: may need rehab COde status: full code
[2019-06-15] MEDS ORDERED: Gabapentin 300 MG CAP PO SCH (14:45)
[2019-06-15] MEDS ORDERED: Potassium Chloride 20 MEQ TAB PO SCH (18:15)
[2019-06-15] MEDS: Gabapentin 300 MG CAP PO SCH (22:36)
[2019-06-15] MEDS: Atorvastatin Calcium 40 MG TAB PO SCH (22:36)
[2019-06-15] MEDS: traZODone HCl 150 MG TAB PO PRN (22:38)
[2019-06-16 01:36] LABS: #Basophils 0.1 thou/uL (0.0-0.2); #Eosinphils 0.3 thou/uL (0.0-0.7); #Lymphocytes 1.9 thou/uL (1.20-3.40); #Monocytes 0.7 thou/uL (0.11-0.59); #Neutrophils 2.1 thou/uL (1.40-6.50); %Eosinophils 6.2 % (0.0-10.0); %Lymphocytes 36.7 % (21.0-51.0); %Monocytes 14.7 % (0.0-10.0); %Neutrophils 41.3 % (42.0-75.0); Hemoglobin 12.4 g/dL (12.0-16.0); Mean Corpuscular HGB CONC 33.6 g/dL (32.0-36.0); Mean Corpuscular Hemoglobin 29.3 pg (27.0-31.0); Mean Corpuscular Volume 87.1 fL (78.0-98.0); Mean Platelet Volume 7.5 fL (7.4-10.4); Platelet Count 198 thou/uL (130-400); RBC Distribution Width 13.5 % (11.5-14.5); Red Blood Cell (RBC) Count 4.23 mill/uL (4.20-5.40)
[2019-06-16 01:56] LABS: Anion Gap 12 mmol/L (10-20); BUN (Urea Nitrogen) 5 mg/dL (9.8-20.1); Calc. Creatinine Clearance 81 mL/min (70-130); Calcium 9.2 mg/dL (7.8-10.44); Carbon Dioxide 24 mmol/L (22-29); Chloride 107 mmol/L (98-107); Estimated GFR-MDRD 74; Glucose 99 mg/dL (70-105); Magnesium 1.7 mg/dL (1.6-2.6); Sodium 139 mmol/L (136-145)
[2019-06-16] MEDS ORDERED: Sodium Chloride 0.9% 250 ML IV SCH (03:30)
[2019-06-16] MEDS: HYDROcodone/Acetaminophen 5/325 mg Tablet PO PRN ×2 (05:23→10:00)
[2019-06-16] MEDS: rOPINIRole HCl 0.5 MG TAB PO SCH ×3 (08:19→21:04)
[2019-06-16] MEDS: rOPINIRole HCl 0.25 MG TAB PO SCH ×3 (08:19→21:04)
[2019-06-16] MEDS: Enoxaparin Sodium 40 MG/0.4 ML SYRINGE SC SCH (09:01)
[2019-06-16] MEDS: Citalopram 20 MG TAB PO SCH (09:01)
[2019-06-16] MEDS: Aspirin 81 mg Enteric Coated Tablet PO SCH (09:01)
[2019-06-16] MEDS: Gabapentin 300 MG CAP PO SCH ×2 (09:01→20:00)
[2019-06-16] MEDS ORDERED: Fludrocortisone Acetate 0.1 MG TAB PO SCH (12:15)
[2019-06-16] MEDS ORDERED: Sodium Chloride 0.9% 500 ML IV SCH (15:45)
[2019-06-16] MEDS ORDERED: Midodrine HCl 5 MG TAB PO PRN (18:43)
--- NOTE | 2019-06-16 18:53 | PDOC.HOSPP ---
- Subjective Encounter Date: 06/16/19 Encounter Time: 12:00 Subjective: The patient did well with PT today. Ambulated up the stairs and had no complaints of dizziness. Per PT BP 130 at beginning then dropped to 100 at the end. Patient complains of dizziness when she stands. Per nursing, patient's BP dropped from 119 to 80 standing. She was given fludrocortisone. Repeat orthostatics still positive. She was given 500 cc bolus. Repeat orthostatics still positive with BP drop 120 to 88 standing. She will be started on midodrine. Patient complains of 8/10 back pain. No bowel or bladder incontinence. - Objective Vital Signs & Weight: Vital Signs (12 hours) Temp Pulse Pulse Pulse Resp BP BP 06/16/19 15:39 98.5 F 71 16 06/16/19 12:00 06/16/19 11:39 98.2 F 64 16 06/16/19 10:17 74 65 108/69 134/73 06/16/19 08:49 06/16/19 07:47 98.4 F 65 16 BP BP BP BP Pulse Ox 06/16/19 15:39 122/62 98 06/16/19 12:00 107/67 81/48 L 111/70 06/16/19 11:39 108/53 L 94 L 06/16/19 10:17 06/16/19 08:49 96/68 06/16/19 07:47 83/65 L 95 Weight Admit Weight 147 lb Weight 147 lb I&O: 06/15/19 06/16/19 06/17/19 06:59 06:59 06:59 Intake Total 790 Output Total 800 Balance -800 790 Result Diagrams: 06/16/19 01:30 06/16/19 01:30 Hospitalist ROS - Review of Systems Constitutional: denies: fever, chills - Medication Medications: Active Medications Generic Name Dose Route Start Last Admin Trade Name Freq PRN Reason Stop Dose Admin Acetaminophen 650 mg 06/12/19 17:34 06/15/19 03:28 Tylenol PO 650 mg Q4H PRN Administration Headache/Fever/Mild Pain (1-3) Aspirin 162 mg 06/13/19 09:00 06/16/19 09:01 Ecotrin PO 162 mg DAILY YOLADNA Administration Atorvastatin Calcium 40 mg 06/12/19 21:00 06/15/19 22:36 Lipitor PO 40 mg HS YOLANDA Administration Citalopram Hydrobromide 40 mg 06/14/19 09:00 06/16/19 09:01 Celexa PO 40 mg DAILY YOLANDA Administration Enoxaparin Sodium 40 mg 06/13/19 09:00 06/16/19 09:01 Lovenox SC 40 mg 0900 YOLANDA Administration Gabapentin 300 mg 06/15/19 21:00 06/16/19 09:01 Neurontin PO 300 mg BID YOLANDA Administration Lorazepam 0.5 mg 06/13/19 10:25 06/14/19 09:37 Ativan PO 0.5 mg Q6H PRN Administration Anxiety Ropinirole HCl 0.25 mg 06/15/19 09:00 06/16/19 15:49 Requip PO Not Given TID YOLANDA Ropinirole HCl 0.5 mg 06/15/19 09:00 06/16/19 15:49 Requip PO Not Given TID YOLANDA Sodium Chloride 10 ml 06/12/19 17:34 06/15/19 09:37 Flush - Normal Saline IVF 10 ml PRN PRN Administration Saline Flush Trazodone HCl 150 mg 06/13/19 21:58 06/15/19 22:38 Desyrel PO 150 mg HS PRN Administration Insomnia - Exam General Appearance: NAD, awake alert Eye: PERRL, anicteric sclera ENT: normocephalic atraumatic, no oropharyngeal lesions Neck: supple, no JVD Heart: RRR, no murmur, no gallops, no rubs Respiratory: CTAB, no wheezes, no rales, no ronchi, no tachypnea Gastrointestinal: soft, non-tender, non-distended, normal bowel sounds Extremities: no cyanosis, no clubbing, no edema Skin: normal turgor, no lesions, no rashes Neurological: cranial nerve grossly intact, normal sensation to touch, no focal deficits, no new deficit Musculoskeletal: normal tone, normal strength, no muscle wasting Musculoskeletal - other findings: back tenderness Psychiatric: normal affect, normal behavior, A&O x 3, oriented to person Hosp A/P - Plan CT head: no acute disease. Old lacunar infarct left side CTA : no significant stenosis Chest X ray: negative ECHO; mild TR. EF 55-60% MRI lumbar spine: central canal stenosis at L2-L3, L3-L4, L4-L5 MRI Thoracic spine: disc bulge and spondylosis at C5-C6 This is a 58 year old male patient with past medical history of depression who presented with frequent falls #Orthostatic hypotension #Dizziness - started fludrocortisone today, given 500 cc bolus and continues to be orthostatic - will add midodrine 2.5 mg tid prn when patient upright - patient to wear annel stockings - CTA brain showed no stenosis, CT head negative, MRI brain showed no stroke. Neurology consulted and recommended pain management - ECHO unremarkable - PT recommended rehab, patient is declining rehab Back pain secondary to DJD - patient states lidocaine patch did not relieve her symptoms - will switch norco to tramadol 25 mg q6 hours prn - increase gabapentin to 600 mg tid - will try naproxen 500 mg bid Peripheral neuropathy in feet possibly from DJD - syphilis negative - vitamin B12 normal - MRI cervical spine shows spondylosis worst at C5 to C6. MRI lumbar spin showing central stenosis from L2-L5. Per neurosurgery will do outpatient evaluation Anemia -resolved Hypokalemia - resolved Dispo: may need rehab COde status: full code
[2019-06-16] MEDS: traMADol HCl 50 MG TAB PO PRN (19:31)
[2019-06-16] MEDS: Atorvastatin Calcium 40 MG TAB PO SCH (20:00)
[2019-06-16] MEDS: traZODone HCl 150 MG TAB PO PRN (20:03)
[2019-06-17] MEDS: traMADol HCl 50 MG TAB PO PRN (05:30)
[2019-06-17] MEDS: Enoxaparin Sodium 40 MG/0.4 ML SYRINGE SC SCH (08:33)
[2019-06-17] MEDS: Gabapentin 300 MG CAP PO SCH (08:33)
[2019-06-17] MEDS: Aspirin 81 mg Enteric Coated Tablet PO SCH (08:33)
[2019-06-17] MEDS: Citalopram 20 MG TAB PO SCH (08:33)
[2019-06-17] MEDS: rOPINIRole HCl 0.25 MG TAB PO SCH (08:40)
[2019-06-17] MEDS: rOPINIRole HCl 0.5 MG TAB PO SCH (08:40)
[2019-06-17] MEDS ORDERED: traMADol HCl 50 MG TAB PO PRN (09:50)
[2019-06-17] MEDS ORDERED: Fludrocortisone Acetate 0.1 MG TAB PO SCH (10:30)
[2019-06-17 11:40] VITALS: BP 121/70; TEMP 98.5
[2019-06-18] MEDS ORDERED: Fludrocortisone Acetate 0.1 MG TAB PO SCH (09:00)
== END 2019-06-17 13:22 | disposition home or self-care (01) | DRG 552 ==
LOC: ERS 14:00 → 2SE 17:57
PROVIDERS: ADMIT Internal Medicine; ATTEND Internal Medicine
DX: M47.816 Spondylosis without myelopathy or radiculopathy, lumbar region (principal); I95.1 Orthostatic hypotension; M48.061 Spinal stenosis, lumbar region without neurogenic claudication; D64.9 Anemia, unspecified; E87.6 Hypokalemia; F32.9 Major depressive disorder, single episode, unspecified; R29.6 Repeated falls; G62.9 Polyneuropathy, unspecified; Z90.710 Acquired absence of both cervix and uterus; R40.2362 Coma scale, best motor response, obeys commands, at arrival to emergency department; R40.2142 Coma scale, eyes open, spontaneous, at arrival to emergency department; R40.2252 Coma scale, best verbal response, oriented, at arrival to emergency department; R29.703 NIHSS score 3; F41.9 Anxiety disorder, unspecified; Z82.49 Family history of ischemic heart disease and other diseases of the circulatory system; I10 Essential (primary) hypertension
CPT/HCPCS: 36415; 36416; 70450; 70496; 70498; 70551; 71045; 72141; 72146; 72148; 80048; 80053; 80061; 80306; 80307; 81003; 82550; 82607; 83735; 84484; 85025; 85027; 85610; 85730; 86780; 93005; 93306; 94760; A4353; J1650; J7050; Q9967

== ENCOUNTER 2019-09-04 15:33 | Emergency (ER) | payer SELFPAY ==
[2019-09-04] MEDS ORDERED: Ketorolac Tromethamine 30 MG/ML VIAL ONE (17:09)
[2019-09-04 17:38] LABS: #Basophils 0.2 thou/uL (0.0-0.2); #Eosinphils 0.3 thou/uL (0.0-0.7); #Lymphocytes 2.8 thou/uL (1.20-3.40); #Monocytes 0.5 thou/uL (0.11-0.59); #Neutrophils 2.1 thou/uL (1.40-6.50); %Basophils 2.6 % (0.0-1.0); %Eosinophils 5.1 % (0.0-10.0); %Lymphocytes 47.7 % (21.0-51.0); %Monocytes 9.2 % (0.0-10.0); %Neutrophils 35.3 % (42.0-75.0); Hemoglobin 12.4 g/dL (12.0-16.0); Mean Corpuscular HGB CONC 33.3 g/dL (32.0-36.0); Mean Corpuscular Hemoglobin 29.4 pg (27.0-31.0); Mean Corpuscular Volume 88.3 fL (78.0-98.0); Mean Platelet Volume 7.2 fL (7.4-10.4); Platelet Count 303 thou/uL (130-400); Red Blood Cell (RBC) Count 4.22 mill/uL (4.20-5.40); White Blood Cell (WBC) Count 5.9 thou/uL (4.8-10.8)
[2019-09-04 17:56] LABS: ALT (SGPT) 33 U/L (8-55); AST (SGOT) 42 U/L (5-34); Albumin 4.4 g/dL (3.5-5.0); Alkaline Phosphatase 277 U/L (40-110); Anion Gap 15 mmol/L (10-20); BUN (Urea Nitrogen) 20 mg/dL (9.8-20.1); Bilirubin, Total 0.3 mg/dL (0.2-1.2); Calc. Creatinine Clearance 0 mL/min (70-130); Calcium 9.2 mg/dL (7.8-10.44); Carbon Dioxide 22 mmol/L (22-29); Chloride 99 mmol/L (98-107); Estimated GFR-MDRD 41; Globulin 2.9 g/dL (2.4-3.5); Glucose 79 mg/dL (70-105); Potassium 4.6 mmol/L (3.5-5.1); Protein, Total 7.3 g/dL (6.0-8.3); Sodium 131 mmol/L (136-145)
[2019-09-04] MEDS ORDERED: Morphine 4 MG/ML VIAL ONE (18:23)
--- NOTE | 2019-09-04 19:29 | RAD ---
LEFT HIP TWO VIEW: 09/04/19 HISTORY: Pain after a fall. COMPARISON: Radiograph 2019. FINDINGS: The obturator ring is intact. The acetabulum is intact. The visualized sacrum is intact. No fracture of the femoral head or neck. No intertrochanteric fracture. IMPRESSION: 1. No acute osseous abnormality. 2. Right 2A lumbosacral transitional vertebra. POS: HOME
--- NOTE | 2019-09-04 19:30 | RAD ---
LUMBAR SPINE THREE VIEW: 09/04/19 HISTORY: Pain. COMPARISON: MRI 06/14/19. 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 There is anterolisthesis of L3 over L4 3 to 4 mm, similar to the spine MRI findings. No acute fracture. IMPRESSION: No acute osseous abnormality. POS: HOME
== END 2019-09-04 19:24 | disposition home or self-care (01) ==
LOC: ERS 15:33
DX: M54.16 Radiculopathy, lumbar region (principal); I10 Essential (primary) hypertension; E87.1 Hypo-osmolality and hyponatremia; F41.9 Anxiety disorder, unspecified; F41.0 Panic disorder [episodic paroxysmal anxiety]; F32.9 Major depressive disorder, single episode, unspecified; M41.9 Scoliosis, unspecified; Z79.899 Other long term (current) drug therapy
CPT/HCPCS: 72100; 80053; 84484; 85025; 93005; 96374; 96375; J1885; J2270

== ENCOUNTER 2019-11-09 05:23 | Emergency (ER) | payer SELFPAY ==
[2019-11-09 05:54] LABS: #Basophils 0.1 thou/uL (0.0-0.2); #Eosinphils 0.4 thou/uL (0.0-0.7); #Lymphocytes 2.5 thou/uL (1.20-3.40); #Monocytes 0.7 thou/uL (0.11-0.59); #Neutrophils 3.9 thou/uL (1.40-6.50); %Basophils 1.2 % (0.0-1.0); %Eosinophils 4.8 % (0.0-10.0); %Lymphocytes 33.1 % (21.0-51.0); %Monocytes 9.8 % (0.0-10.0); %Neutrophils 51.3 % (42.0-75.0); Hemoglobin 12.9 g/dL (12.0-16.0); Mean Corpuscular HGB CONC 32.7 g/dL (32.0-36.0); Mean Corpuscular Hemoglobin 29.4 pg (27.0-31.0); Mean Corpuscular Volume 89.9 fL (78.0-98.0); Mean Platelet Volume 7.4 fL (7.4-10.4); Platelet Count 330 thou/uL (130-400); RBC Distribution Width 11.9 % (11.5-14.5); White Blood Cell (WBC) Count 7.5 thou/uL (4.8-10.8)
[2019-11-09] MEDS ORDERED: Hydrocortisone Sod Succ/PF 100 mg/2 ml Vial ONE (06:02)
[2019-11-09 06:09] LABS: ALT (SGPT) 29 U/L (8-55); AST (SGOT) 36 U/L (5-34); Albumin 4.9 g/dL (3.5-5.0); Alkaline Phosphatase 243 U/L (40-110); Anion Gap 15 mmol/L (10-20); BUN (Urea Nitrogen) 18 mg/dL (9.8-20.1); Bilirubin, Total 0.4 mg/dL (0.2-1.2); CK (CPK) 51 U/L (29-168); Calc. Creatinine Clearance 0 mL/min (70-130); Calcium 10.4 mg/dL (7.8-10.44); Carbon Dioxide 24 mmol/L (22-29); Chloride 101 mmol/L (98-107); Estimated GFR-MDRD 38; Globulin 3.3 g/dL (2.4-3.5); Glucose 168 mg/dL (70-105); Potassium 4.2 mmol/L (3.5-5.1); Protein, Total 8.2 g/dL (6.0-8.3); Sodium 136 mmol/L (136-145)
[2019-11-09] MEDS ORDERED: Ketorolac Tromethamine 30 MG/ML VIAL ONE (06:27)
[2019-11-09] MEDS ORDERED: Hydrocortisone Sod Succ/PF 100 mg/2 ml Vial IVP SCH (06:45)
[2019-11-09] MEDS ORDERED: Midodrine HCl 5 MG TAB PO SCH (06:45)
--- NOTE | 2019-11-09 08:54 | RAD ---
CHEST 1 VIEW: Date: 11/09/2019 INDICATION: Syncopal episode after fall. COMPARISON: Prior exam dated 06/04/2019. IMPRESSION: No acute cardiopulmonary abnormality. COMMENTS: The lungs are clear. Heart size is normal. No acute osseous abnormality is evident. POS: BH
--- NOTE | 2019-11-09 08:56 | CT ---
CT BRAIN WITHOUT CONTRAST: Date: 11/09/2019 INDICATION: Syncopal episode with fall, hitting back of head on floor. COMPARISON: Prior exam dated 06/12/2019. FINDINGS: Remote lacunar infarction involving the globus pallidus and left caudate head are stable. No acute in farct, hemorrhage, or hydrocephalus is present. No midline shift is evident. Mastoid air cells and pa ranasal sinuses are clear. Skull is intact. IMPRESSION: 1. No acute intracranial abnormality. 2. Stable chronic ischemic change. POS: BH
--- NOTE | 2019-11-09 09:04 | RAD ---
3 VIEWS RIGHT FOOT: Date: 11/09/2019 INDICATION: History of syncopal episode with fall and right foot injury. COMPARISON: None. IMPRESSION: No acute fracture or subluxation demonstrated. COMMENTS: Lisfranc alignment is preserved. No radiopaque foreign body is evident. POS: BH
== END 2019-11-09 06:35 | disposition home or self-care (01) ==
LOC: ERS 05:23
DX: I95.1 Orthostatic hypotension (principal); S90.31XA Contusion of right foot, initial encounter; S00.211A Abrasion of right eyelid and periocular area, initial encounter; M41.9 Scoliosis, unspecified; I10 Essential (primary) hypertension; F32.9 Major depressive disorder, single episode, unspecified; F41.0 Panic disorder [episodic paroxysmal anxiety]; Z79.899 Other long term (current) drug therapy; W01.198A Fall on same level from slipping, tripping and stumbling with subsequent striking against other object, initial encounter
CPT/HCPCS: 70450; 71045; 80053; 82550; 84484; 85025; 93005; 96361; 96374; 96375; J1720; J1885

== ENCOUNTER 2020-02-22 13:30 | Inpatient (IN) | payer SELFPAY ==
--- NOTE | 2020-02-22 14:37 | CT ---
CT Brain WO Con History: Altered mental status Comparison: Multiple prior brain CT examinations, most recent December 24, 2019 Findings: Old left basal ganglia infarct. Old right small internal capsule infarct. No acute hemorrhage or infarct. No midline shift or mass effect. Calvarium is intact. Paranasal sinuses and mastoids are clear. Impression: Chronic findings. No acute intracranial abnormality.
[2020-02-22 15:22] LABS: #Basophils 0.1 thou/uL (0.0-0.2); #Eosinphils 0.5 thou/uL (0.0-0.7); #Lymphocytes 2.2 thou/uL (1.20-3.40); #Monocytes 0.7 thou/uL (0.11-0.59); #Neutrophils 4.8 thou/uL (1.40-6.50); %Basophils 0.9 % (0.0-1.0); %Eosinophils 6.2 % (0.0-10.0); %Lymphocytes 26.8 % (21.0-51.0); %Monocytes 8.2 % (0.0-10.0); %Neutrophils 57.9 % (42.0-75.0); Hemoglobin 11.8 g/dL (12.0-16.0); Mean Corpuscular HGB CONC 35.1 g/dL (32.0-36.0); Mean Corpuscular Hemoglobin 31.6 pg (27.0-31.0); Mean Corpuscular Volume 90.1 fL (78.0-98.0); Platelet Count 295 thou/uL (130-400); RBC Distribution Width 11.4 % (11.5-14.5); Red Blood Cell (RBC) Count 3.72 mill/uL (4.20-5.40); White Blood Cell (WBC) Count 8.3 thou/uL (4.8-10.8)
[2020-02-22 15:29] LABS: INR-International Normal Ratio 1.1; Prothrombin Time 13.9 sec (12.0-14.7)
[2020-02-22 15:30] LABS: PTT 40.2 sec (22.9-36.1)
[2020-02-22 15:42] LABS: ALT (SGPT) 32 U/L (8-55); AST (SGOT) 35 U/L (5-34); Albumin 4.2 g/dL (3.5-5.0); Alkaline Phosphatase 219 U/L (40-110); Anion Gap 15 mmol/L (10-20); BUN (Urea Nitrogen) 27 mg/dL (9.8-20.1); Bilirubin, Total 0.2 mg/dL (0.2-1.2); Calc. Creatinine Clearance 0 mL/min (70-130); Calcium 9.4 mg/dL (7.8-10.44); Carbon Dioxide 22 mmol/L (22-29); Chloride 103 mmol/L (98-107); Estimated GFR-MDRD 32; Glucose 103 mg/dL (70-105); Potassium 5.4 mmol/L (3.5-5.1); Protein, Total 7.2 g/dL (6.0-8.3); Sodium 135 mmol/L (136-145)
[2020-02-22] MEDS ORDERED: Morphine 4 MG/ML VIAL ONE (18:56)
[2020-02-22] MEDS ORDERED: Ondansetron PF 4 MG/2 ML Vial ONE (19:04)
[2020-02-22] MEDS ORDERED: Aspirin 325 MG TAB ONE (19:04)
--- NOTE | 2020-02-22 19:53 | CT ---
CT lumbar spine noncontrast HISTORY: Low back pain. Injury. COMPARISON: 11/17/2019 and 02/23/2017. FINDINGS: Vertebral body heights are maintained. Disc space narrowing and grade 1 spondylolisthesis a t the L3-4 level is similar in appearance to the prior exams. No acute fracture or dislocation. Disc bulges and prominent osteophytosis throughout the vertebral bodies and facets. Severe central ca nal stenoses at the L3-4 and L4-5 levels. Articulation of the right L5 transverse process with the upper sacrum again demonstrated. IMPRESSION : No acute osseous abnormalities are demonstrated. Prominent degenerative changes, including multi level severe central canal stenoses.
[2020-02-22] MEDS ORDERED: Lorazepam 2 MG/ML VIAL ONE (21:51)
--- NOTE | 2020-02-22 23:18 | PDOC.HHP ---
Hospitalist HPI - History of Present Illness Syncope, slurred speech History of Present Illness: Ms. Sanon is a 59 year-old female with past medical history of scoliosis, hyponatremia, hypertension, restless leg syndrome, mood disorder, TIA who presents to the emergency room after syncopal event and right-sided weakness associated with slurred speech. Patient reports that 2 days ago on Saturday she passed out while playing with her grandchildren. She denies any chest pain, shortness of breath, dizziness lightheadedness or prodrome prior to this event. She reports she woke up and felt completely fine afterwards. The following day she also passed out, and hit her right ear. She again during this episode had no chest pain shortness of breath or prodrome. She feels overall weak and earlier this morning she noticed right arm weakness and her family member noticed garbled speech which lasted approximately 30 minutes. Currently her reports she is back to her baseline mental status. She has been admitted in the past for TIA work-up, but no history of known stroke or cardiac disease. She is not on aspirin or statin at this time. Currently she denies any numbness tingling or paresthesias. Denies hematochezia, melena. In emergency room initial vital signs 137/76, 59, 17, 97% on room air. EKG showed sinus bradycardia at 44. Head CT showed no acute abnormalities. Spine CT also showed no evidence of fracture or acute abnormalities. BUN/CR 27/1.65. Potassium elevated at 5.4. Sodium 135. H/H 11.8/33.5. WBC 8.3. Patient received 325 mg of aspirin, 1 L of normal saline and 4 mg of morphine in the emergency room. Patient admitted to hospitalist service for further work-up and management. Hospitalist ROS - Review of Systems Constitutional: reports: weakness. denies: fever, chills, sweats, malaise, other Eyes: denies: pain, vision change, conjunctivae inflammation, eyelid inflammation, redness, other ENT: reports: ear pain. denies: ear discharge, nose pain, nose discharge, nose congestion, mouth pain, mouth swelling, throat pain, throat swelling, other Respiratory: denies: cough, dry, shortness of breath, hemoptysis, SOB with excertion, pleuritic pain, sputum, wheezing, other Cardiovascular: reports: other (Syncope). denies: chest pain, palpitations, orthopnea, paroxysmal noc. dyspnea, edema, light headedness Gastrointestinal: denies: nausea, vomiting, abdominal pain, diarrhea, constipation, melena, hematochezia, other Genitourinary: denies: dysuria, frequency, incontinence, hematuria, retention, other Musculoskeletal: denies: neck pain, shoulder pain, arm pain, back pain, hand pain, leg pain, foot pain, other Skin: denies: rash, lesions, luna, bruising, other Neurological: reports: weakness, numbness, change in speech. denies: incoordination, confusion, seizures, other - Medication Medications: Home medications include Ropinirole Gabapentin Trazodone Lisinopril Clonazepam Wellbutrin No known drug allergies Hospitalist History - Past Medical History Psych: reports: Depression Other Medical History: Past medical history includes Mood disorder Scoliosis Hypertension Restless leg syndrome Mild hyponatremia Prior TIA rule out - Past Surgical History Other Surgical History: Past surgical history of Hysterectomy Appendectomy - Family History Other Family History: Family history significant for father with NE, siblings with cardiac disease - Social History Smoking Status: Never smoker Alcohol: reports: None Drugs: reports: none Living Situation: With Family Activity level: independent ambulation - Exam General Appearance: NAD, awake alert Eye: PERRL, anicteric sclera ENT: normocephalic atraumatic, no oropharyngeal lesions, moist mucosa Neck: supple, symmetric, no JVD, no thyromegaly, no lymphadenopathy, no carotid bruit Heart: RRR, no murmur, no gallops, no rubs, normal peripheral pulses Respiratory: CTAB, no wheezes, no rales, no ronchi, normal chest expansion, no tachypnea, normal percussion Gastrointestinal: soft, non-tender, non-distended, normal bowel sounds, no palpable masses, no hepatomegaly, no splenomegaly, no bruit Extremities: no cyanosis, no clubbing, no edema Skin: normal turgor, no lesions, no rashes Neurological: cranial nerve grossly intact, normal sensation to touch, no weakness, no focal deficits, no new deficit Musculoskeletal: normal tone, normal strength, no muscle wasting Psychiatric: normal affect, normal behavior, A&O x 3 Hospitalist Results - Labs Result Diagrams: 02/22/20 15:04 02/22/20 15:04 Lab results: WBC 8.3 thou/uL (4.8-10.8) 02/22/20 15:04 Hgb 11.8 g/dL (12.0-16.0) L 02/22/20 15:04 Hct 33.5 % (36.0-47.0) L 02/22/20 15:04 MCV 90.1 fL (78.0-98.0) 02/22/20 15:04 Plt Count 295 thou/uL (130-400) 02/22/20 15:04 Neutrophils % 57.9 % (42.0-75.0) 02/22/20 15:04 Sodium 135 mmol/L (136-145) L 02/22/20 15:04 Potassium 5.4 mmol/L (3.5-5.1) H 02/22/20 15:04 Chloride 103 mmol/L (98-107) 02/22/20 15:04 Carbon Dioxide 22 mmol/L (22-29) 02/22/20 15:04 BUN 27 mg/dL (9.8-20.1) H 02/22/20 15:04 Creatinine 1.65 mg/dL (0.6-1.1) H 02/22/20 15:04 Glucose 103 mg/dL (70-105) 02/22/20 15:04 Calcium 9.4 mg/dL (7.8-10.44) 02/22/20 15:04 Total Bilirubin 0.2 mg/dL (0.2-1.2) 02/22/20 15:04 AST 35 U/L (5-34) H 02/22/20 15:04 ALT 32 U/L (8-55) 02/22/20 15:04 Alkaline Phosphatase 219 U/L (40-110) H 02/22/20 15:04 Troponin I 0.020 ng/mL (< 0.028) 02/22/20 15:04 Serum Total Protein 7.2 g/dL (6.0-8.3) 02/22/20 15:04 Albumin 4.2 g/dL (3.5-5.0) 02/22/20 15:04 Hospitalist H&P A/P - Plan Plan: Syncope 59 year-old female with 2 episodes of syncope over the weekend without prodrome. Based off of patient's labs suspect orthostatic hypotension, however will admit for observation and continued work-up. H/H stable at 11.8/33.5. BUN/CR /.65. Potassium 5.4 with no EKG changes. Patient had a recent echocardiogram in December 2019 which showed an EF of 55 to 60% with mild concentric left ventricular hypertrophy with trace mitral regurgitation and no significant valvular stenosis or regurgitation. EEG was also performed at that time which was normal. Carotid Doppler showed no significant stenosis. Plan Orthostatic vital signs Telemetry monitoring Gentle IV fluids TSH, magnesium, trend electrolytes Right-sided weakness and slurred speech Patient had 30 minutes of right-sided weakness associated with slurred speech that has now completely resolved. Patient previously admitted in December for TIA rule out with no abnormalities noted on work-up. CT brain in emergency room negative for acute pathology. CT spine also negative for fracture or acute pathology. Given patient's acute symptoms and prior syncopal episodes will admit for observation and TIA rule out. Plan Aspirin, statin MRI brain -q4hr neuro checks -lipid panel, Hg A1c Neurology consult Acute kidney injury BUN/CR on admission 11/05.65. Baseline creatinine less than 1. No history of chronic kidney disease. Potassium also mildly elevated at 5.4 with no EKG changes. Suspect specimen may have been hemolyzed so we will repeat. Patient received 1 L of normal saline in emergency room. We will continue gentle IV fluids and continue to monitor kidney function. Plan Monitor kidney function Gentle IV fluids Repeat potassium Avoid nephrotoxic agents when possible Renal dosing as appropriate Hypertension History of hypertension on home lisinopril. Will hold in setting of CVA rule out and permissive hypertension. Blood pressure currently 137/76. Mood disorder History of mood disorder on ropinirole, trazodone, clonazepam and Wellbutrin. Patient reports that currently her mood is stable, but does endorse anxiety over her syncopal episodes. She currently denies SI/HI. We will continue home medications. DVT prophylaxisSCDs Full codeMDM patient's Case discussed with attending physician Dr. Santana.
[2020-02-22] MEDS ORDERED: Labetalol HCl 100 MG/20 ML VIAL SLOW IVP PRN (23:28)
[2020-02-22] MEDS ORDERED: Atropine Sulfate 1 mg/10 ml Syringe ONE (23:39)
[2020-02-23] LABS: Hemoglobin A1c 5.1 % (4.0-6.0)
[2020-02-23 00:12] LABS: Anion Gap 14 mmol/L (10-20); BUN (Urea Nitrogen) 24 mg/dL (9.8-20.1); Calc. Creatinine Clearance 0 mL/min (70-130); Calcium 8.9 mg/dL (7.8-10.44); Carbon Dioxide 24 mmol/L (22-29); Chloride 105 mmol/L (98-107); Estimated GFR-MDRD 39; Glucose 98 mg/dL (70-105); Magnesium 1.9 mg/dL (1.6-2.6); Potassium 4.5 mmol/L (3.5-5.1); Sodium 138 mmol/L (136-145)
[2020-02-23 00:57] VITALS: BMI 20.2
[2020-02-23] MEDS ORDERED: HYDROcodone/Acetaminophen 5/325 mg Tablet ONE ×3 (00:59→12:30)
[2020-02-23] MEDS: HYDROcodone/Acetaminophen 5/325 mg Tablet PO PRN ×4 (01:11→20:44)
[2020-02-23] MEDS ORDERED: Midodrine HCl 5 MG TAB PO SCH (01:45)
[2020-02-23] MEDS ORDERED: Sodium Chloride 0.9% 1,000 ML IV SCH (01:45)
[2020-02-23 04:33] LABS: Cardiac Risk 6.9 (Less than 4.5)
[2020-02-23] MEDS ORDERED: Aspirin Chewable 81 MG TAB ONE (08:32)
[2020-02-23] MEDS: Aspirin 81 mg Enteric Coated Tablet PO SCH (08:50)
[2020-02-23] MEDS ORDERED: Non-Formulary Item 1 EACH (Midodrine Hcl [Midodrine Hcl] 2.5 MG Tablet) PO SCH (09:00)
--- NOTE | 2020-02-23 10:12 | MRI ---
MRI brain with and without contrast: DATE: 02/23/2020 HISTORY: 59-year-old female with TIA: Episode of dysarthria and right sided weakness. COMPARISON: 12/24/2019 TECHNIQUE: Multiplanar, multisequence MRI of the brain obtained pre and post IV injection of gadolinium based co ntrast agent. FINDINGS: There is no obstructive hydrocephalus. There is no midline shift or any other evidence of mass effect . There is no extra-axial fluid collection. There are mild-moderate chronic ischemic white matter changes due to microvascular atherosclerosis. There is otherwise no major intra-axial signal abnormal ity, abnormal enhancement, mass, recent hemorrhage, or restricted diffusion. There is thin rims of hemosiderin stains around 2 of the lesions in the posterior region of the basal ganglia bilaterally. The one on the left is approximately 1 x 0.5 cm. The one on the right is 0.3 x 0.3 cm. These are consistent with prior hemorrhages. There has been no interval change overall. IMPRESSION: 1) mild-moderate chronic ischemic white matter changes. 2) evidence of prior small bilateral basal ganglia hemorrhages, either prior primary hemorrhages or h emorrhagic conversions of lacunar infarctions. 3) no interval change overall.
--- NOTE | 2020-02-23 11:43 | PDOC.HOSPP ---
- Subjective Encounter Date: 02/23/20 Encounter Time: 11:41 Subjective: Ms. Sanon was seen today in follow-up of syncope. She had two episodes, with no significant warning signs. She notes having a tremor. but otherwise ok. - Objective Vital Signs & Weight: Weight Weight 125 lb 14.143 oz Result Diagrams: 02/22/20 15:04 02/22/20 23:45 Hospitalist ROS - Medication Medications: Active Medications Generic Name Dose Route Start Last Admin Trade Name Freq PRN Reason Stop Dose Admin Hydrocodone Bitart/Acetaminophen 1 tab 02/23/20 00:49 02/23/20 05:12 Hydrocodone/Acetaminophen 5/325 Mg Tablet PO 1 tab Q4H PRN Administration Pain Aspirin 81 mg 02/23/20 09:00 02/23/20 08:50 Aspirin 81 Mg Enteric Coated Tablet PO 81 mg DAILY YOLANDA Administration - Exam Eye: PERRL, anicteric sclera Heart: RRR, no murmur, no gallops, no rubs, normal peripheral pulses Respiratory: CTAB, no wheezes, no rales, no ronchi, normal chest expansion, no tachypnea, normal percussion Gastrointestinal: soft, non-tender, non-distended, normal bowel sounds, no pa lpable masses, no hepatomegaly Extremities: no cyanosis, no edema Musculoskeletal: normal tone, normal strength, no muscle wasting Psychiatric: A&O x 3 Hosp A/P (1) Syncope Code(s): R55 - SYNCOPE AND COLLAPSE Status: Acute (2) Bradycardia Code(s): R00.1 - BRADYCARDIA, UNSPECIFIED Status: Acute (3) Chronic renal failure, stage 3 (moderate) Code(s): N18.3 - CHRONIC KIDNEY DISEASE, STAGE 3 (MODERATE) * DO NOT USE * Sta tus: Chronic (4) Depression Code(s): F32.9 - MAJOR DEPRESSIVE DISORDER, SINGLE EPISODE, UNSPECIFIED Status: Chronic (5) Hypertension Code(s): I10 - ESSENTIAL (PRIMARY) HYPERTENSION Status: Chronic (6) MARI (acute kidney injury) Code(s): N17.9 - ACUTE KIDNEY FAILURE, UNSPECIFIED Status: Acute - Plan * Syncope- Etiology is unclear- discussed with Dr. Martínez. She had a full Neurological work-up in December. Will repeat the MRI * Bradycardia- unclear if this is contributing to her symptoms- await Cardiology evaluation * HTN- blood pressure is stable * MARI- she appears to be volume depleted- her renal function is improving with hydration * She may need to wear event monitor or Linq recorder
--- NOTE | 2020-02-23 12:18 | CON ---
NEUROLOGY CONSULTATION DATE OF CONSULTATION: 02/23/2020 REASON FOR CONSULTATION: TIA, syncope/slurred speech. HISTORY OF PRESENT ILLNESS: Ms. Sanon is a 59-year-old female with medical history significant for scoliosis, hyponatremia, restless legs syndrome, mood disorder, and prior TIA, presented to the emergency room after a syncopal event associated with right-sided weakness and slurred speech. Per the patient, 2 days ago on Saturday, she passed out while playing with her grandchildren. The patient does report an episode of garbled speech earlier on the morning of 02/22/2020, which lasted for about 30 minutes. Per , she is back to her baseline. She has been admitted for TIA workup in the past. The patient denies any focal numbness, paresthesias, nausea, vomiting, headache, chest pain, abdominal pain, recent illness, or recent sick contacts or exposure to COVID. In the emergency room, head CT was done, which did not reveal any acute abnormalities. Lumbar spine CT showed did not show any evidence of fracture or acute abnormalities. She was given aspirin and normal saline and admitted for further workup. REVIEW OF SYSTEMS: All systems reviewed and were negative except the pertinent positives and negatives mentioned in the HPI. HOME MEDICATIONS: 1. Ropinirole. 2. Gabapentin. 3. Trazodone. 4. Lisinopril. 5. Clonazepam. 6. Wellbutrin. ALLERGIES: NO KNOWN DRUG ALLERGIES. PAST MEDICAL HISTORY: Mood disorder, scoliosis, hypertension, prior TIA, mild hyponatremia, restless legs syndrome, and depression. PAST SURGICAL HISTORY: Hysterectomy, appendectomy. FAMILY HISTORY: Significant for father with OR and siblings with cardiac disease. SOCIAL HISTORY: The patient lives with family. Denies smoking, alcohol, illegal drug use. Active Medications Generic Name Dose Route Start Last Admin Trade Name Freq PRN Reason Stop Dose Admin Hydrocodone Bitart/Acetaminophen 1 tab 02/23/20 00:49 02/23/20 05:12 Hydrocodone/Acetaminophen 5/325 Mg Tablet PO 1 tab Q4H PRN Administration Pain Aspirin 81 mg 02/23/20 09:00 02/23/20 08:50 Aspirin 81 Mg Enteric Coated Tablet PO 81 mg DAILY YOLANDA Administration PHYSICAL EXAMINATION: 129/89 18 88 General Appearance: NAD, awake alert Eye: PERRL, anicteric sclera ENT: normocephalic atraumatic, no oropharyngeal lesions, moist mucosa Neck: supple, symmetric, no JVD, no thyromegaly, no lymphadenopathy, no carotid bruit Heart: RRR, no murmur, no gallops, no rubs, normal peripheral pulses Respiratory: CTAB, no wheezes, no rales, no ronchi, normal chest expansion, no tachypnea, normal percussion Gastrointestinal: soft, non-tender, non-distended, normal bowel sounds, no palpable masses, no hepatomegaly, no splenomegaly, no bruit Extremities: no cyanosis, no clubbing, no edema Skin: normal turgor, no lesions, no rashes Neurological: Mental status; the patient is alert and oriented to person, place, and time. Speech is clear. Cranial nerves 2 through 12 intact. Motor; muscle tone and bulk are normal. Strength 5/5 bilaterally. Sensory intact. Cerebellar, finger-nose testing intact. Gait deferred due to the patient's safety reasons. LABORATORY AND DIAGNOSTIC DATA: Data reviewed. I reviewed the labs, which are significant for hemoglobin of 11.8, hematocrit of 33.5. She also has BUN of 27 and creatinine of 1.65. She also has hyperkalemia, potassium 5.4 and hyponatremia at 135. Head CT did not reveal acute intracranial pathology. Lab results: WBC 8.3 thou/uL (4.8-10.8) 02/22/20 15:04 Hgb 11.8 g/dL (12.0-16.0) L 02/22/20 15:04 Hct 33.5 % (36.0-47.0) L 02/22/20 15:04 MCV 90.1 fL (78.0-98.0) 02/22/20 15:04 Plt Count 295 thou/uL (130-400) 02/22/20 15:04 Neutrophils % 57.9 % (42.0-75.0) 02/22/20 15:04 Sodium 135 mmol/L (136-145) L 02/22/20 15:04 Potassium 5.4 mmol/L (3.5-5.1) H 02/22/20 15:04 Chloride 103 mmol/L (98-107) 02/22/20 15:04 Carbon Dioxide 22 mmol/L (22-29) 02/22/20 15:04 BUN 27 mg/dL (9.8-20.1) H 02/22/20 15:04 Creatinine 1.65 mg/dL (0.6-1.1) H 02/22/20 15:04 Glucose 103 mg/dL (70-105) 02/22/20 15:04 Calcium 9.4 mg/dL (7.8-10.44) 02/22/20 15:04 Total Bilirubin 0.2 mg/dL (0.2-1.2) 02/22/20 15:04 AST 35 U/L (5-34) H 02/22/20 15:04 ALT 32 U/L (8-55) 02/22/20 15:04 Alkaline Phosphatase 219 U/L (40-110) H 02/22/20 15:04 Troponin I 0.020 ng/mL (< 0.028) 02/22/20 15:04 Serum Total Protein 7.2 g/dL (6.0-8.3) 02/22/20 15:04 Albumin 4.2 g/dL (3.5-5.0) 02/22/20 15:04 ASSESSMENT AND PLAN: (1) Syncope Code(s): R55 - SYNCOPE AND COLLAPSE Status: Acute (2) Bradycardia Code(s): R00.1 - BRADYCARDIA, UNSPECIFIED Status: Acute (3) Chronic renal failure, stage 3 (moderate) Code(s): N18.3 - CHRONIC KIDNEY DISEASE, STAGE 3 (MODERATE) * DO NOT USE * Status: Chronic (4) Depression Code(s): F32.9 - MAJOR DEPRESSIVE DISORDER, SINGLE EPISODE, UNSPECIFIED Status: Chronic (5) Hypertension Code(s): I10 - ESSENTIAL (PRIMARY) HYPERTENSION Status: Chronic (6) MARI (acute kidney injury) Code(s): N17.9 - ACUTE KIDNEY FAILURE, UNSPECIFIED Status: Acute Mary Kay Sanon is a 59-year-old female, presented with 2 episodes of loss of consciousness. There are also some associated neurological findings including slurred speech and right-sided weakness, which resolved on its own, so transient ischemic attack is also high in the differential. She had a recent echocardiogram in December 2019 with ejection fraction 55% to 60% with mild left ventricular hypertrophy, so no need to repeat that. EEG reviewed from the last visit, which was negative for acute intracranial pathology. Carotid Dopplers did not reveal hemodynamically significant stenosis. No need to repeat further workup. Start aspirin and high-intensity statin for secondary stroke prevention. MRI of the brain reviewed, which was negative for acute intracranial pathology but some hemorrhagic conversion of lacunar infarct. Continue neuro checks every 4 hours. Cardiology input regarding any further suggestions on syncope workup. Correct metabolic abnormalities. Strict control of blood pressure and blood glucose. PT/OT/speech. DVT prophylaxis. We will continue to follow. Thank you for the consult. Job ID: [id number] [facility]
[2020-02-23] MEDS ORDERED: Mag-Al 1200 mg/1200 mg/30 ML UDCUP PO SCH (15:00)
[2020-02-23] MEDS ORDERED: Mag-Al 1200 mg/1200 mg/30 ML UDCUP ONE (15:47)
[2020-02-23] MEDS ORDERED: Mag-Al 1200 mg/1200 mg/30 ML UDCUP PO PRN (17:00)
[2020-02-23] MEDS: Gabapentin 400 MG CAP PO SCH (20:40)
[2020-02-23] MEDS: buPROPion 75 MG TAB PO SCH (20:40)
[2020-02-23] MEDS: clonazePAM 1 MG TAB PO SCH (20:40)
[2020-02-23] MEDS ORDERED: Atorvastatin Calcium 40 MG TAB PO SCH (21:00)
--- NOTE | 2020-02-23 22:05 | CON ---
DATE OF CONSULTATION: HISTORY: The patient is a 59-year-old woman who presented after losing consciousness. The patient has a previous history of several TIAs. She was recently admitted in December after she had a possible TIA. She underwent an echocardiogram which revealed normal left ventricular systolic function. The patient underwent a carotid ultrasound, which revealed to have no significant stenosis. The patient presents once again with recurrent weakness and slurred speech. The patient reported she acutely had difficulty speaking and developed right-sided weakness. The patient denied having any chest discomfort, dyspnea, PND,or orthopnea. The patient states she has been taking her aspirin. The patient takes several anti-anxiety medications and Lisinopril. PAST MEDICAL HISTORY: 1. TIA. 2. Hypertension. 3. Dyslipidemia. 4. History of orthostatic hypotension. PAST SURGICAL HISTORY: Hysterectomy. SOCIAL HISTORY: Nonsmoker. ALLERGIES: NO KNOWN DRUG ALLERGIES. PHYSICAL EXAMINATION: GENERAL: Obese woman, in no acute distress. VITAL SIGNS: Blood pressure 135/85, heart rate is 65. NECK: No jugular venous distention. LUNGS: Clear to auscultation. HEART: Regular rate and rhythm. Normal S1, S2. No murmurs. ABDOMEN: Nondistended. EXTREMITIES: Showed no edema. NEUROLOGIC: Nonfocal. LABORATORY RESULTS: Sodium is 138, potassium 4.5, chloride 105, bicarbonate 24, BUN 24, creatinine 1.38. EKG Sinus bradycardia, heart rate of 51, otherwise normal ECG. IMPRESSION: 1. Syncope. 2. Possible transient ischemic attack. 3. Hypertension. 4. Dyslipidemia. 5. History of orthostatic hypotension. PLAN: This patient presents with a possible another TIA. From a cardiac stand, she was noted to have significant bradycardia. She is on a lot of anti-anxiety medications. I expect that the patient most likely had a TIA. I would recommend that she undergo a MATT to see if there is evidence of a PFO. We will follow this patient with you through her hospitalization. The patient will be monitored on telemetry to see if she develops recurrent bradycardia. Job ID: [id number] [facility]
[2020-02-24] MEDS: HYDROcodone/Acetaminophen 5/325 mg Tablet PO PRN ×2 (01:58→15:51)
--- NOTE | 2020-02-24 08:08 | PDOC.HOSPP ---
- Subjective Encounter Date: 02/24/20 Encounter Time: 09:33 Subjective: Ms. Sanon is being followed for 2 episodes of syncope, weakness, and tremors. Tremors resolved yesterday following admission and administration of her home medications. Patient was alert and anxious for pending MATT this morning. - Objective Vital Signs & Weight: Vital Signs (12 hours) Temp Pulse Resp BP BP BP BP 02/24/20 08:06 98.8 F 67 14 106/58 L 02/24/20 04:00 98.7 F 88 13 104/55 L 02/24/20 02:00 123/91 H 157/73 H 144/97 H 02/23/20 23:35 102/54 L Pulse Ox 02/24/20 08:06 95 02/24/20 04:00 94 L 02/24/20 02:00 02/23/20 23:35 Weight Weight 125 lb 14.143 oz I&O: 02/23/20 02/24/20 02/25/20 06:59 06:59 06:59 Intake Total 320 Output Total 2 Balance 318 Result Diagrams: 02/22/20 15:04 02/22/20 23:45 Hospitalist ROS - Review of Systems Respiratory: denies: cough, shortness of breath, wheezing Cardiovascular: reports: light headedness (with movement). denies: chest pain, edema Gastrointestinal: reports: other (increased frequency of loose stools, attributed to anxiousness). denies: nausea, vomiting, diarrhea Neurological: reports: weakness. denies: numbness, change in speech - Medication Medications: Active Medications Generic Name Dose Route Start Last Admin Trade Name Jasonq PRN Reason Stop Dose Admin Hydrocodone Bitart/Acetaminophen 1 tab 02/23/20 00:49 02/24/20 01:58 Hydrocodone/Acetaminophen 5/325 Mg Tablet PO 1 tab Q4H PRN Administration Pain Aspirin 81 mg 02/23/20 09:00 02/23/20 08:50 Aspirin 81 Mg Enteric Coated Tablet PO 81 mg DAILY YOLANDA Administration Atorvastatin Calcium 40 mg 02/23/20 21:00 02/23/20 20:40 Atorvastatin Calcium 40 Mg Tab PO 40 mg HS YOLANDA Administration Bupropion HCl 75 mg 02/23/20 21:00 02/23/20 20:40 Bupropion 75 Mg Tab PO 75 mg BID YOLANDA Administration Clonazepam 2 mg 02/23/20 21:00 02/23/20 20:40 Clonazepam 1 Mg Tab PO 2 mg BID YOLANDA Administration Gabapentin 400 mg 02/23/20 21:00 02/23/20 20:40 Gabapentin 400 Mg Cap PO 400 mg BID YOLANDA Administration - Exam General Appearance: NAD, awake alert Eye: PERRL, anicteric sclera ENT - other findings: Significant brusing of right ear Heart: RRR, no murmur, no gallops, no rubs, normal peripheral pulses Respiratory: CTAB, no wheezes, no rales, no ronchi, normal chest expansion Gastrointestinal: soft, non-tender, non-distended, normal bowel sounds, no guarding Extremities: no edema Skin - other findings: Bruising to right breast from fall Neurological: cranial nerve grossly intact, normal sensation to touch. negative: facial droop, speech deficit Psychiatric: A&O x 3 Psychiatric - other findings: Anxious affect Hosp A/P (1) Syncope Code(s): R55 - SYNCOPE AND COLLAPSE Status: Acute (2) Bradycardia Code(s): R00.1 - BRADYCARDIA, UNSPECIFIED Status: Acute (3) Chronic renal failure, stage 3 (moderate) Code(s): N18.3 - CHRONIC KIDNEY DISEASE, STAGE 3 (MODERATE) * DO NOT USE * Status: Chronic (4) Depression Code(s): F32.9 - MAJOR DEPRESSIVE DISORDER, SINGLE EPISODE, UNSPECIFIED Status: Chronic (5) Hypertension Code(s): I10 - ESSENTIAL (PRIMARY) HYPERTENSION Status: Chronic (6) MARI (acute kidney injury) Code(s): N17.9 - ACUTE KIDNEY FAILURE, UNSPECIFIED Status: Acute - Plan * Syncope- Etiology is unclear- discussed with Dr. Martínez. She had a full Neurological work-up in December. Will repeat the MRI. Neurochecks [id number] * Bradycardia- unclear if this is contributing to her symptoms- await Cardiology evaluation. Undergoing MATT today. Orthostatics ordered. Telemetry to monitor. * HTN- blood pressure is stable * MARI- she appears to be volume depleted- her renal function is improving with hydration. Continue to monitor. * She may need to wear event monitor or Linq recorder * * Ms. Sanon was seen and examined and discussed with Fannie Bruner MS- 3, and agree with above. She does not have any complaints today. Her exam is unchanged, but her heart rate has improved. MATT was negative for PFO. Her home medications were reviewed, and she has multiple medications which can cause drowsiness. Will decrease the dose of Gabapentin back down to 400mg twice a day. She will talk with her Primary Care Provider about decreasing some of her other medications if possible. Stable for discharge home
[2020-02-24] MEDS: Gabapentin 400 MG CAP PO SCH (08:59)
[2020-02-24] MEDS: clonazePAM 1 MG TAB PO SCH (08:59)
[2020-02-24] MEDS ORDERED: traZODone HCl 150 MG TAB PO SCH (09:00)
[2020-02-24] MEDS ORDERED: Lisinopril 20 MG TAB PO SCH (09:00)
[2020-02-24] MEDS ORDERED: rOPINIRole HCl 2 MG TAB PO SCH (09:00)
[2020-02-24] MEDS: Aspirin 81 mg Enteric Coated Tablet PO SCH (09:00)
[2020-02-24] MEDS: buPROPion 75 MG TAB PO SCH (09:52)
[2020-02-24] MEDS ORDERED: PROPOFOL 200 MG/20 ML VIAL ONE (10:07)
[2020-02-24 10:59] LABS: SARS-CoV-2 MS2 Positive; SARS-CoV-2 N Gene Negative; SARS-CoV-2 S Gene Negative; SARS-CoV-2 by NAA Not Detected (NotDetected); SARS-CoV-2 orf1ab Negative
--- NOTE | 2020-02-24 13:29 | PDOC.NEUPN ---
- Subjective Encounter Date: 02/24/20 Subjective: Patient denies any new complaints in the last 24 hours. - Objective Vital Signs & Weight: Vital Signs (12 hours) Temp Pulse Resp BP BP BP Pulse Ox 02/24/20 11:54 99.0 F 66 20 126/67 93 L 02/24/20 08:00 98.8 F 67 14 106/58 L 95 02/24/20 04:00 98.7 F 88 13 104/55 L 94 L 02/24/20 02:00 123/91 H 157/73 H 144/97 H Weight Weight 125 lb 14.143 oz I&O: 02/23/20 02/24/20 02/25/20 06:59 06:59 06:59 Intake Total 320 Output Total 2 Balance 318 Result Diagrams: 02/22/20 15:04 02/22/20 23:45 Radiology Reviewed by me: Yes EKG Reviewed by me: Yes ROS - Review of Systems Constitutional: denies: fever, chills, sweats, weakness, malaise, other Eyes: denies: pain, vision change, conjunctivae inflammation, eyelid inflammation, redness, other ENT: denies: ear pain, ear discharge, nose pain, nose discharge, nose congestion, mouth pain, mouth swelling, throat pain, throat swelling, other Respiratory: denies: cough, dry, shortness of breath, hemoptysis, SOB with excertion, pleuritic pain, sputum, wheezing, other Cardiovascular: denies: no pertinent history, AFIB, CAD, CHF, HTN, AL, Syncope, Hyperlipidemia, Mitral valve stenosis, Aortic stenosis, Valve insufficiency, Pulmonary hypertension, Other Gastrointestinal: denies: nausea, vomiting, abdominal pain, diarrhea, constipation, melena, hematochezia, other Genitourinary: denies: dysuria, frequency, incontinence, hematuria, retention, other Musculoskeletal: denies: neck pain, shoulder pain, arm pain, back pain, hand pain, leg pain, foot pain, other Neurological: denies: weakness, numbness, incoordination, change in speech, confusion, seizures, other - Medication Medications: Active Medications Generic Name Dose Route Start Last Admin Trade Name Freq PRN Reason Stop Dose Admin Hydrocodone Bitart/Acetaminophen 1 tab 02/23/20 00:49 02/24/20 01:58 Hydrocodone/Acetaminophen 5/325 Mg Tablet PO 1 tab Q4H PRN Administration Pain Aspirin 81 mg 02/23/20 09:00 02/24/20 09:00 Aspirin 81 Mg Enteric Coated Tablet PO 81 mg DAILY YOLANDA Administration Atorvastatin Calcium 40 mg 02/23/20 21:00 02/23/20 20:40 Atorvastatin Calcium 40 Mg Tab PO 40 mg HS YOLANDA Administration Bupropion HCl 75 mg 02/23/20 21:00 02/24/20 09:52 Bupropion 75 Mg Tab PO 75 mg BID YOLANDA Administration Clonazepam 2 mg 02/23/20 21:00 02/24/20 08:59 Clonazepam 1 Mg Tab PO 2 mg BID YOLANDA Administration Gabapentin 400 mg 02/23/20 21:00 02/24/20 08:59 Gabapentin 400 Mg Cap PO 400 mg BID YOLANDA Administration Lisinopril 20 mg 02/24/20 09:00 02/24/20 08:58 Lisinopril 20 Mg Tab PO 20 mg DAILY YOLANDA Administration Ropinirole HCl 2 mg 02/24/20 09:00 02/24/20 08:59 Ropinirole Hcl 2 Mg Tab PO 2 mg DAILY YOLANDA Administration Trazodone HCl 150 mg 02/24/20 09:00 02/24/20 09:51 Trazodone Hcl 150 Mg Tab PO Not Given DAILY YOLANDA - Exam General Appearance: awake alert Eye: PERRL ENT: normocephalic atraumatic Neck: supple Respiratory: CTAB Cardiovascular: RRR Gastrointestinal: soft Extremities: no cyanosis Skin: normal turgor Neurological: CN's grossly intact, normal sensation to touch, no weakness, no focal deficits, no new deficit Musculoskeletal: normal tone, normal strength, no muscle wasting PSYCH: normal affect, normal behavior, A&O x 3 Results - Labs Result Diagrams: 02/22/20 15:04 02/22/20 23:45 Lab results: WBC 8.3 thou/uL (4.8-10.8) 02/22/20 15:04 Hgb 11.8 g/dL (12.0-16.0) L 02/22/20 15:04 Hct 33.5 % (36.0-47.0) L 02/22/20 15:04 MCV 90.1 fL (78.0-98.0) 02/22/20 15:04 Plt Count 295 thou/uL (130-400) 02/22/20 15:04 Neutrophils % 57.9 % (42.0-75.0) 02/22/20 15:04 Sodium 138 mmol/L (136-145) 02/22/20 23:45 Potassium 4.5 mmol/L (3.5-5.1) 02/22/20 23:45 Chloride 105 mmol/L (98-107) 02/22/20 23:45 Carbon Dioxide 24 mmol/L (22-29) 02/22/20 23:45 BUN 24 mg/dL (9.8-20.1) H 02/22/20 23:45 Creatinine 1.38 mg/dL (0.6-1.1) H 02/22/20 23:45 Glucose 98 mg/dL (70-105) 02/22/20 23:45 Calcium 8.9 mg/dL (7.8-10.44) 02/22/20 23:45 Total Bilirubin 0.2 mg/dL (0.2-1.2) 02/22/20 15:04 AST 35 U/L (5-34) H 02/22/20 15:04 ALT 32 U/L (8-55) 02/22/20 15:04 Alkaline Phosphatase 219 U/L (40-110) H 02/22/20 15:04 Troponin I Less than 0.010 ng/mL (< 0.028) 02/23/20 04:06 Serum Total Protein 7.2 g/dL (6.0-8.3) 02/22/20 15:04 Albumin 4.2 g/dL (3.5-5.0) 02/22/20 15:04 - EKG Interpretation EKG: Sinus bradycardia - Radiology Interpretation MRI - head Additional Comment: No acute intracranial pathology PN A/P (1) Syncope Code(s): R55 - SYNCOPE AND COLLAPSE Status: Acute (2) Bradycardia Code(s): R00.1 - BRADYCARDIA, UNSPECIFIED Status: Acute (3) MARI (acute kidney injury) Code(s): N17.9 - ACUTE KIDNEY FAILURE, UNSPECIFIED Status: Acute - Plan Daily Plan: PT/OT, speech therapy, DVT proph w/SCDs 59 year old female with episode of syncope. Patient had associated right sided weakness and slurred speech. TIA versus syncope. MRI brain reviewed and was negative for intracranial pathology. No need to repeat other stroke work up completed in December.. Continue aspirin full dose and high intensity statin for secondary stroke prevention. Telemetry- Sinus bradycardia - Cardiology on board. MATT today. Neurochecks every 4 hours PT/OT/Speech. Continue home medications. Continue medical management per primary team.
[2020-02-24 16:06] VITALS: BP 141/71; TEMP 98
--- NOTE | 2020-02-24 17:28 | PDOC.DS.DS ---
Provider - Provider Date of Admission: 02/22/20 20:49 Date of Discharge: 02/24/20 Admitting Provider: Sami Santana MD Consultations: Cardiology, Neurology Primary Care Physician: Mercy Ambrosio Course - Hospital Course Hospital Course: Ms. Sanon is a 59-year-old female with a history of scoliosis hyponatremia hypertension and restless leg syndrome. She was recently admitted to our facility for TIA-like symptoms. A full work-up was done at that time which was negative. She presents again with syncope as well as right-sided weakness and slurred speech. She was admitted to the hospital. In the emergency room she was found to have a low heart rate in the 50s. For this reason cardiology as well as neurology were consulted to help evaluate her symptoms. Since she had a recent echocardiogram as well as carotid Dopplers these were not repeated. 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 The aluminum welder felt that her symptoms were likely more TIA related then to an arrhythmia and recommended performing a MATT to rule out PFO. This was negative. She was seen by neurology. The neurologist thought her symptoms were either TIA related or could be due to an arrhythmia. However since she had a full work-up recently only the MRI was recommended to be repeated. She is to continue on aspirin and statin. It was noted on review of her medications that she is on multiple medications which can cause drowsiness and potentially lower her heart rate as well. She was on trazodone baclofen gabapentin Klonopin and bupropion. The decision was made to lower the dose of gabapentin back to 400 mg twice a day as she had gone back to taking 800 mg 3 times a day. She would also talk with her primary care physician with regards to potentially lowering the dose of some of her other sedating medications. It is felt that this is a strong possibility of causing her symptoms. Therefore with a negative work-up and with improved symptoms the patient was able to be discharged home. Pertinent Studies: CT- Brain CT- Lumbar Spine MATT MRI of Brain - Labs Lab Results: 02/22/20 15:04 02/22/20 23:45 Abnormal Lab Results - Last 48 hrs 02/22/20 23:45: BUN 24 H, Creatinine 1.38 H 02/23/20 04:06: Triglycerides 261 H, Cholesterol 214 H - Physical Exam Vitals: Vital Signs (12 hours) Temp Pulse Resp BP BP Pulse Ox 02/24/20 16:00 98 F 70 16 141/71 H 96 02/24/20 13:30 98.1 F 70 16 136/71 98 02/24/20 11:54 99.0 F 66 20 126/67 93 L 02/24/20 08:00 98.8 F 67 14 106/58 L 95 Weight Weight 125 lb 14.143 oz Physical Exam: The patient was seen and examined on the day of discharge. Problem - Discharge Plan Health Concerns: Please discuss your medications with your primary physician. - Problem (1) Polypharmacy Code(s): Z79.899 - OTHER CARE HOME (CURRENT) DRUG THERAPY Status: Acute (2) Syncope Code(s): R55 - SYNCOPE AND COLLAPSE Status: Acute (3) Bradycardia Code(s): R00.1 - BRADYCARDIA, UNSPECIFIED Status: Acute (4) Chronic renal failure, stage 3 (moderate) Code(s): N18.3 - CHRONIC KIDNEY DISEASE, STAGE 3 (MODERATE) * DO NOT USE * Status: Chronic (5) Depression Code(s): F32.9 - MAJOR DEPRESSIVE DISORDER, SINGLE EPISODE, UNSPECIFIED Status: Chronic (6) Hypertension Code(s): I10 - ESSENTIAL (PRIMARY) HYPERTENSION Status: Chronic (7) MARI (acute kidney injury) Code(s): N17.9 - ACUTE KIDNEY FAILURE, UNSPECIFIED Status: Acute Plan - Discharge Medications Home Medications: Medication Instructions Recorded Confirmed Type rOPINIRole HCl [Ropinirole ER] 2 mg PO HS 01/23/19 02/24/20 History Baclofen 10 mg PO HS PRN 06/13/19 02/24/20 History traZODone HCl [Desyrel] 150 mg PO HS PRN 06/13/19 02/24/20 History Atorvastatin Calcium [Lipitor] 40 mg PO HS #30 tab 06/16/19 02/24/20 Rx clonazePAM [Clonazepam] 2 mg PO BID 11/17/19 02/24/20 History buPROPion HCl [buPROPion HCl ER] 150 mg PO BID 12/24/19 02/24/20 History Aspirin [Ecotrin Regular Strength] 325 mg PO DAILY tab 12/25/19 02/24/20 Rx Gabapentin [Neurontin] 400 mg PO BID #0 cap 02/24/20 Rx Lisinopril 2.5 mg PO HS 02/24/20 02/24/20 History Allergies: No Known Drug Allergies Allergy (Verified 12/24/19 15:52) - Discharge Instructions Discharge Instructions:: See patient discharge instruction sheet for detailed teaching. Patient verbalizes understanding of medications and is able to verbalize follow-up care. See Discharge Plan for additional discharge information. Patient secured in private vehicle prior to departure. Activity:: Activity as Tolerated Nourishment:: Heart Healthy Diet - Follow up Plan Referrals: Aman Evans MD [Primary Care Provider] - 7 Days Disposition: HOME Quality - Care Measures CORE MEASURES:: Stroke/TIA - Stroke/TIA Did you prescribe antithrombotic therapy?: Yes Specify reason for no DC anticoagulant: Treatment not indicated (Not in AFIB) Did you prescribe a statin medication?: Yes
--- NOTE | 2020-02-25 09:42 | OP ---
DATE OF PROCEDURE: 02/24/2020 PROCEDURE PERFORMED: Transesophageal echocardiogram. INDICATIONS FOR PROCEDURE: 59-year-old woman with CVA. DESCRIPTION OF PROCEDURE: The patient was taken to the PACU. The patient was sedated by Anesthesiology. A transesophageal probe was placed in the distal esophagus and stomach. Echocardiographic images were obtained. The transesophageal probe was removed. FINDINGS: 1. Normal left ventricular systolic function. 2. Normal mitral and aortic valves. 3. Mild mitral regurgitation. 4. Trivial tricuspid regurgitation. 5. No thrombus was noted in the left atrium or left atrial appendage. 6. No PFO was noted by color Doppler or contrast bubble exam. 7. Atherosclerotic debris in the descending aorta. IMPRESSION: No patent foramen ovale by color Doppler or contrast bubble exam. Job ID: [id number] [facility]
--- NOTE | 2020-02-27 02:13 | PQF ---
CLINICAL DOCUMENTATION CLARIFICATION FORM: Dear : Charli Lewis Date / Time: 02/27/2020211 Please exercise your independent, professional judgment in responding to the clarification form. Clinical indicators are provided on the bottom of this form for your review In your clinical opinion based on clinical findings below can you please identify the etiology of Syncope if due to: Please check appropriate box(es): [ X ] TIA [ ] Bradycardia [ ] Other diagnosis [ ] Unable to determine Physician Signature: Date/Time: For continuity of documentation, please document condition throughout progress notes and discharge summary. Thank You To be completed by CDI/Coding staff for physician review: Present Clinical Indicators - Signs / Symptoms / Labs Results and Location in Medical Record [X] BP 98/62, Pulse 58, Resp 18, Temp 98.0 Vital signs 02/21 [X] Presents to ER after syncopal event and right sided weakness associated with slurred speech H&P p1 02/21 [facility] [X] Syncopal episodes will admit for observation and TIA rule out H&P p5 02/21 [facility] [X] Bradycardia Consult Dr Martínez 02/22 [X] Neurological findings including slurred speech and right sided weakness, which resolved on its own, so TIA is also high in differential Consult Dr Martínez 02/22 Present Risk Factors Results and Location in Medical Record [X] 59 year-old Female H&P p1 02/21 [facility] [X] HTN H&P p1 02/21 [facility] [X] Hx of TIA H&P p1 02/21 [facility] [X] MARI H&P p11 02/21 [facility] Present Treatments Results and Location in Medical Record [X] IVF NS 1L JUN 23 [X] IV Atropine 1 mg JUN 23 [X] Aspirin 81 mg oral JUN 23 [X] Brain MRI Imaging Dr Shabazz 02/22 [X] Neuro consult Consult Dr Martínez 02/22 [X] Cardio consult Consult Dr Watts02/22 [X] MATT Imaging Dr Watts CDS/Health Coach Signature: Orquidea Couchgeena Phone #: [phone] Date/Time: 02/27/2020211 This is a permanent part of the Medical Record [facility]
== END 2020-02-24 16:46 | disposition home or self-care (01) | DRG 69 ==
LOC: ERS 13:30 → ERHOLD 20:49 → OBSVTOIN 20:49 → 2SE 02-23 19:38
PROVIDERS: ADMIT Internal Medicine; ATTEND Internal Medicine
PROC: B24BZZ4 Ultrasonography of Heart with Aorta, Transesophageal (ICD-10-PCS; principal; 2020-02-24)
DX: G45.9 Transient cerebral ischemic attack, unspecified (principal); N17.9 Acute kidney failure, unspecified; E87.1 Hypo-osmolality and hyponatremia; R00.1 Bradycardia, unspecified; Z20.828 Contact with and (suspected) exposure to other viral communicable diseases; N18.30 Chronic kidney disease, stage 3 unspecified; F32.9 Major depressive disorder, single episode, unspecified; I12.9 Hypertensive chronic kidney disease with stage 1 through stage 4 chronic kidney disease, or unspecified chronic kidney disease; I70.0 Atherosclerosis of aorta; I08.1 Rheumatic disorders of both mitral and tricuspid valves; M41.9 Scoliosis, unspecified; G25.81 Restless legs syndrome; F41.0 Panic disorder [episodic paroxysmal anxiety]; F39 Unspecified mood [affective] disorder; E86.9 Volume depletion, unspecified; Z90.710 Acquired absence of both cervix and uterus; Z79.899 Other long term (current) drug therapy; Z86.73 Personal history of transient ischemic attack (TIA), and cerebral infarction without residual deficits; Z90.49 Acquired absence of other specified parts of digestive tract
CPT/HCPCS: 36415; 70450; 70551; 72131; 80053; 80061; 83036; 83735; 84443; 84484; 85025; 85610; 85730; 87635; 93005; 93312; 96374; 96375; G0378; J0461; J2060; J2270; J2405; J2704; U0003

== ENCOUNTER 2020-04-12 08:00 | Emergency (ER) | payer SELFPAY ==
[2020-04-12] MEDS ORDERED: Ketorolac Tromethamine 30 MG/ML VIAL ONE (08:27)
[2020-04-12 09:48] LABS: #Basophils 0.1 thou/uL (0.0-0.2); #Eosinphils 0.2 thou/uL (0.0-0.7); #Lymphocytes 2.1 thou/uL (1.20-3.40); #Monocytes 0.6 thou/uL (0.11-0.59); #Neutrophils 2.5 thou/uL (1.40-6.50); %Basophils 1.4 % (0.0-1.0); %Lymphocytes 38.2 % (21.0-51.0); %Monocytes 10.7 % (0.0-10.0); %Neutrophils 45.7 % (42.0-75.0); Hemoglobin 11.3 g/dL (12.0-16.0); Mean Corpuscular HGB CONC 33.4 g/dL (32.0-36.0); Mean Corpuscular Hemoglobin 29.8 pg (27.0-31.0); Mean Corpuscular Volume 89.3 fL (78.0-98.0); Mean Platelet Volume 7.1 fL (7.4-10.4); Platelet Count 218 thou/uL (130-400); RBC Distribution Width 11.5 % (11.5-14.5); White Blood Cell (WBC) Count 5.6 thou/uL (4.8-10.8)
[2020-04-12 10:10] LABS: ALT (SGPT) 21 U/L (8-55); AST (SGOT) 23 U/L (5-34); Albumin 4.4 g/dL (3.5-5.0); Alkaline Phosphatase 173 U/L (40-110); Anion Gap 15 mmol/L (10-20); BUN (Urea Nitrogen) 14 mg/dL (9.8-20.1); Bilirubin, Total 0.3 mg/dL (0.2-1.2); Calc. Creatinine Clearance 0 mL/min (70-130); Calcium 9.3 mg/dL (7.8-10.44); Carbon Dioxide 27 mmol/L (22-29); Chloride 105 mmol/L (98-107); Globulin 2.7 g/dL (2.4-3.5); Glucose 83 mg/dL (70-105); Potassium 3.9 mmol/L (3.5-5.1); Protein, Total 7.1 g/dL (6.0-8.3); Sodium 143 mmol/L (136-145)
--- NOTE | 2020-04-12 10:39 | RAD ---
LUMBAR SPINE 3 VIEWS: HISTORY: Bilateral hip and leg pain. COMPARISON: 11/17/2019. FINDINGS: Moderate, approximately 0.7 cm grade I anterolisthesis of L3 on L4. Partial sacralization of L5 with right lateral pseudoarticulation of the right L5 transverse process to the right sacrum. No acute f racture or dislocation. IMPRESSION: Overall stable anterolisthesis of L3 on L4 with mild dextroscoliosis and right-sided pseudoarthrosis of L5 on S1. Followup standing flexion and extension views of the lumbar spine in the lateral projec tion might be of benefit to demonstrate potential instability. No significant new process. POS: RRE
[2020-04-12 11:16] LABS: Bilirubin Negative (Negative); Blood, Urine Negative (Negative); Clarity Clear (Clear); Glucose, Urine (Dipstick) Normal (Negative); Ketone, Urine Negative (Negative); Leukocyte Negative Leu/uL (Negative); Nitrite Negative (Negative); Protein, Urine (Dipstick) Negative (Neg-Trace); Specific Gravity, Urine 1.012 (1.002-1.036); Urobilinogen Normal mg/dL (Less than 2); pH, Urine 5.5 (5.0-9.0)
--- NOTE | 2020-04-12 11:20 | RAD ---
AP PELVIS: INDICATION: Hip pain. FINDINGS: Pelvis appears intact. Hips are unremarkable. No osseous abnormality identified. IMPRESSION: Unremarkable exam. POS: AGW
== END 2020-04-12 11:18 | disposition home or self-care (01) ==
LOC: ERS 08:00
DX: M54.5 Low back pain (principal); I10 Essential (primary) hypertension; Z79.899 Other long term (current) drug therapy
CPT/HCPCS: 72100; 72170; 80053; 81003; 85025; 93005; 96374; J1885

== ENCOUNTER 2020-05-23 09:12 | Observation (INO) | payer OTHER, SELFPAY ==
[2020-05-23] MEDS ORDERED: Aspirin Chewable 81 MG TAB ONE (10:12)
[2020-05-23] MEDS ORDERED: Nitroglycerin 0.4 MG TAB 1 EACH ONE (10:12)
[2020-05-23 10:40] LABS: #Eosinphils 0.3 thou/uL (0.0-0.7); #Lymphocytes 2.1 thou/uL (1.20-3.40); #Monocytes 0.5 thou/uL (0.11-0.59); #Neutrophils 3.8 thou/uL (1.40-6.50); %Basophils 0.4 % (0.0-1.0); %Eosinophils 4.7 % (0.0-10.0); %Lymphocytes 30.7 % (21.0-51.0); %Monocytes 7.8 % (0.0-10.0); %Neutrophils 56.4 % (42.0-75.0); Hemoglobin 12.3 g/dL (12.0-16.0); Mean Corpuscular HGB CONC 33.8 g/dL (32.0-36.0); Mean Corpuscular Hemoglobin 30.9 pg (27.0-31.0); Mean Corpuscular Volume 91.3 fL (78.0-98.0); Mean Platelet Volume 7.5 fL (7.4-10.4); Platelet Count 217 thou/uL (130-400); RBC Distribution Width 11.8 % (11.5-14.5); Red Blood Cell (RBC) Count 3.99 mill/uL (4.20-5.40); White Blood Cell (WBC) Count 6.7 thou/uL (4.8-10.8)
--- NOTE | 2020-05-23 10:50 | RAD ---
Exam: Chest one view HISTORY:Chest pain Comparison: 12/24/2019 FINDINGS: Cardiac silhouette: Normal Aorta: Unremarkable Pulmonary vessels: Normal Costophrenic angles: Clear LUNGS: No masses or consolidation. Pneumothorax: None Osseous abnormalities: None IMPRESSION: No acute cardiopulmonary process.
[2020-05-23 11:03] LABS: ALT (SGPT) 16 U/L (8-55); AST (SGOT) 23 U/L (5-34); Albumin 3.9 g/dL (3.5-5.0); Alkaline Phosphatase 133 U/L (40-110); Anion Gap 16 mmol/L (10-20); BUN (Urea Nitrogen) 18 mg/dL (9.8-20.1); Bilirubin, Total 0.3 mg/dL (0.2-1.2); CK (CPK) 46 U/L (29-168); Calc. Creatinine Clearance 0 mL/min (70-130); Calcium 8.8 mg/dL (7.8-10.44); Carbon Dioxide 22 mmol/L (22-29); Chloride 106 mmol/L (98-107); Globulin 2.6 g/dL (2.4-3.5); Glucose 95 mg/dL (70-105); Lipase 38 U/L (8-78); Magnesium 1.7 mg/dL (1.6-2.6); Potassium 4.3 mmol/L (3.5-5.1); Protein, Total 6.5 g/dL (6.0-8.3); Sodium 140 mmol/L (136-145)
[2020-05-23] MEDS ORDERED: Gabapentin 100 MG CAP PO SCH (12:15)
[2020-05-23] MEDS ORDERED: Nitroglycerin 0.4 MG TAB (25 Tab Bottle) SL PRN (12:35)
[2020-05-23] MEDS ORDERED: Aspirin 325 MG TAB PO SCH (12:45)
--- NOTE | 2020-05-23 12:45 | PDOC.HHP ---
Hospitalist HPI Chest pain History of Present Illness: Ms. Sanon is a 59F with a past medical history of scoliosis, hyponatremia, r estless leg syndrome, anxiety and depression, degenerative disc disease, TIAs who presents for chest pain. Patient reports that last night she was up getting less water and experienced chest pressure and squeezing over her left breast. She reports that the pain radiated upward. Pain lasts for approximately 3 to 4 minutes and then resolves. She does report that is worse on exertion. Of note patient has had multiple recent hospitalizations for suspected TIAs and chronic bilateral lower extremity weakness. She does report that over the past few days she has been unable to walk. She does have good feeling in her extremities bilaterally, but reports having difficulties lifting her legs. She denies any numbness focal weakness or paresthesias. Denies shortness of breath, abdominal pain or palpitations. She has no smoking history but does have a family history of cardiac disease in her father and siblings. In emergency room initial vital signs 104/63, 59, 20, 100% on room air, 98.7. EKG shows nonspecific T wave changes with no ST changes. Normal sinus rhythm. Troponin 0 0.01. Chest x-ray with no acute findings. WBC 6.7, H/H 12.3/36.5, BUN/Cr 18/1.11, sodium 140, potassium 4.3, glucose 95. Lipase 38, 97.7. Patient received aspirin, Nitropaste in the emergency room. Allergies/Adverse Reactions: Allergy/AdvReac Type Severity Reaction Status Date / Time No Known Drug Allergies Allergy Verified 12/24/19 15:52 Home Medications: Medication Instructions Recorded Confirmed Type rOPINIRole HCl [Ropinirole ER] 2 mg PO HS 01/23/19 02/24/20 History Baclofen 10 mg PO HS PRN 06/13/19 02/24/20 History traZODone HCl [Desyrel] 150 mg PO HS PRN 06/13/19 02/24/20 History Atorvastatin Calcium [Lipitor] 40 mg PO HS #30 tab 06/16/19 02/24/20 Rx clonazePAM [Clonazepam] 2 mg PO BID 11/17/19 02/24/20 History buPROPion HCl [buPROPion HCl ER] 150 mg PO BID 12/24/19 02/24/20 History Aspirin [Ecotrin Regular Strength] 325 mg PO DAILY tab 12/25/19 02/24/20 Rx Gabapentin [Neurontin] 400 mg PO BID #0 cap 02/24/20 Rx Lisinopril 2.5 mg PO HS 02/24/20 02/24/20 History Past History: PMHx: TIAs Scoliosis Hyponatremia Restless leg syndrome Anxiety, depression Degenerative disc disease Chronic back pain PSHx: Appendectomy Hysterectomy FHx: Family history of cardiac disease in father and sibling Social: Patient lives at home with denies alcohol tobacco or drug use Hospitalist Exam General Appearance: NAD, awake alert Eye: PERRL, anicteric sclera ENT: normocephalic atraumatic, no oropharyngeal lesions, moist mucosa Neck: supple, symmetric, no JVD, no thyromegaly, no lymphadenopathy, no carotid bruit Heart: RRR, no murmur, no gallops, no rubs, normal peripheral pulses Respiratory: CTAB, no wheezes, no rales, no ronchi, normal chest expansion, no tachypnea, normal percussion Gastrointestinal: soft, non-tender, non-distended, normal bowel sounds, no palpa ble masses, no hepatomegaly, no splenomegaly, no bruit Extremities: no cyanosis, no clubbing, no edema Skin: normal turgor, no lesions, no rashes Neurological: cranial nerve grossly intact, normal sensation to touch, no weakn ess, no focal deficits, no new deficit Musculoskeletal: normal tone, normal strength, no muscle wasting Psychiatric: normal affect, normal behavior, A&O x 3 Hospitalist Results Result Diagrams: 05/23/20 10:21 05/23/20 10:21 Lab results: Laboratory Last Values WBC 6.7 thou/uL (4.8-10.8) 05/23/20 10:21 RBC 3.99 mill/uL (4.20-5.40) L 05/23/20 10:21 Hgb 12.3 g/dL (12.0-16.0) 05/23/20 10:21 Hct 36.5 % (36.0-47.0) 05/23/20 10:21 MCV 91.3 fL (78.0-98.0) 05/23/20 10:21 MCH 30.9 pg (27.0-31.0) 05/23/20 10:21 MCHC 33.8 g/dL (32.0-36.0) 05/23/20 10:21 RDW 11.8 % (11.5-14.5) 05/23/20 10:21 Plt Count 217 thou/uL (130-400) 05/23/20 10:21 MPV 7.5 fL (7.4-10.4) 05/23/20 10:21 Neutrophils % 56.4 % (42.0-75.0) 05/23/20 10:21 Lymphocytes % 30.7 % (21.0-51.0) 05/23/20 10:21 Monocytes % 7.8 % (0.0-10.0) 05/23/20 10:21 Eosinophils % 4.7 % (0.0-10.0) 05/23/20 10:21 Basophils % 0.4 % (0.0-1.0) 05/23/20 10:21 Neutrophils # 3.8 thou/uL (1.40-6.50) 05/23/20 10:21 Lymphocytes # 2.1 thou/uL (1.20-3.40) 05/23/20 10:21 Monocytes # 0.5 thou/uL (0.11-0.59) 05/23/20 10:21 Eosinophils # 0.3 thou/uL (0.0-0.7) 05/23/20 10:21 Basophils # 0.0 thou/uL (0.0-0.2) 05/23/20 10:21 Sodium 140 mmol/L (136-145) 05/23/20 10:21 Potassium 4.3 mmol/L (3.5-5.1) 05/23/20 10:21 Chloride 106 mmol/L (98-107) 05/23/20 10:21 Carbon Dioxide 22 mmol/L (22-29) 05/23/20 10:21 Anion Gap 16 mmol/L (10-20) 05/23/20 10:21 BUN 18 mg/dL (9.8-20.1) 05/23/20 10:21 Creatinine 1.11 mg/dL (0.6-1.1) H 05/23/20 10:21 Estimated GFR (MDRD) 50 05/23/20 10:21 Glucose 95 mg/dL (70-105) 05/23/20 10:21 Calcium 8.8 mg/dL (7.8-10.44) 05/23/20 10:21 Magnesium 1.7 mg/dL (1.6-2.6) 05/23/20 10:21 Total Bilirubin 0.3 mg/dL (0.2-1.2) 05/23/20 10:21 AST 23 U/L (5-34) 05/23/20 10:21 ALT 16 U/L (8-55) 05/23/20 10:21 Alkaline Phosphatase 133 U/L (40-110) H 05/23/20 10:21 Creatine Kinase 46 U/L (29-168) 05/23/20 10:21 Troponin I Less than 0.010 ng/mL (< 0.028) 05/23/20 10:21 Serum Total Protein 6.5 g/dL (6.0-8.3) 05/23/20 10:21 Albumin 3.9 g/dL (3.5-5.0) 05/23/20 10:21 Globulin 2.6 g/dL (2.4-3.5) 05/23/20 10:21 Albumin/Globulin Ratio 1.5 g/dL (1.2-2.2) 05/23/20 10:21 Lipase 38 U/L (8-78) 05/23/20 10:21 Hospitalist H&P A/P Plan: Chest pain 59 year-old female with past medical history of scoliosis, degenerative disc disease anxiety depression multiple admissions for TIAs versus syncopal episodes presents with chest pain and generalized weakness. EKG shows no ST changes with nonspecific T wave inversions. Initial troponin 0.0 1. Chest x-ray with no acute findings. WBC 6.7. Patient received aspirin and Nitropaste in emergency room. Is currently chest pain-free. No cardiac history. Has had recent transesophageal echocardiogram which was normal. Will trend troponin and admit to telemetry and pursue stress test in a.m. if troponins remain negative. Plan Trend troponin Telemetry monitoring N.p.o. at midnight pending stress test Generalized weakness Patient with generalized weakness. She reports that few days ago she was unable to walk. Feels as though her legs are very heavy. Patient has a history of this and appears to be a chronic problem. Patient questions that she has multiple sclerosis. She did have a recent MRI which was negative. Has had spinal MRIs which showed degenerative disc disease. Patient has been worked up for vitamin B-12, syphilis in the past which was all been negative. Question polymyalgia rheumatica. Will order ESR and CRP as it does not appear as these have been checked. Plan PT OT consult ESR CRP Anxiety and depression History of anxiety and depression on multiple home medications. We will continue once dosages are confirmed. DVT prophylaxisSCDs Full code Case discussed with attending physician, Dr. Abarca.
[2020-05-23 13:44] LABS: Troponin I Less than 0.010 ng/mL (< 0.028)
[2020-05-23 17:03] VITALS: BMI 25.6
[2020-05-23] MEDS: Baclofen 10 MG TAB PO PRN (17:38)
[2020-05-23 17:41] LABS: Troponin I Less than 0.010 ng/mL (< 0.028)
[2020-05-23] MEDS ORDERED: Atorvastatin Calcium 40 MG TAB PO SCH (21:00)
[2020-05-23] MEDS: clonazePAM 1 MG TAB PO SCH (22:03)
[2020-05-23] MEDS: Bupropion 150 MG SR TAB PO SCH (22:03)
[2020-05-23] MEDS ORDERED: traZODone HCl 150 MG TAB PO PRN (22:15)
[2020-05-24 04:13] LABS: SARS-CoV-2 PCR by NAA Not Detected (NotDetected)
[2020-05-24] MEDS ORDERED: Aspirin Chewable 81 MG TAB PO SCH (09:00)
[2020-05-24] MEDS ORDERED: Enoxaparin Sodium 40 MG/0.4 ML SYRINGE SC SCH (09:00)
[2020-05-24] MEDS ORDERED: ADENOSINE 60 MG/20 ML VIAL ONE (09:48)
[2020-05-24] MEDS: Baclofen 10 MG TAB PO PRN (11:02)
[2020-05-24] MEDS: Bupropion 150 MG SR TAB PO SCH (11:03)
[2020-05-24] MEDS: clonazePAM 1 MG TAB PO SCH (11:03)
--- NOTE | 2020-05-24 11:26 | NM ---
EXAM: CARDIAC SPECT HISTORY: Chest pain TECHNIQUE: A myocardial perfusion scan was performed using the single isotope 1 day protocol with pablo hnetium 99m sestamibi. [10 mCi] was injected intravenously for the rest exam followed by 32 mCifor the stress study. Pharmacologic stress with adenosine was monitored and interpreted by physician's telecom assistant FINDINGS: Homogeneous tracer distribution is seen in the myocardial segments on stress and rest image s without fixed or reversible defects. Gated SPECT LVEF: 90% Wall motion exam: Normal IMPRESSION: Normal myocardial perfusion scan
[2020-05-24 12:05] VITALS: TEMP 97.7
[2020-05-24 14:30] VITALS: BP 107/56
[2020-05-24] MEDS ORDERED: Sodium Chloride 0.9% 500 ML IVPB SCH (14:30)
[2020-05-24 15:59] LABS: Troponin I Less than 0.010 ng/mL (< 0.028)
[2020-05-24] MEDS ORDERED: ROPINIROLE HCL 2 MG PO SCH (21:00)
--- NOTE | 2020-05-25 03:44 | DIS ---
DATE OF ADMISSION: 05/23/2020 DATE OF DISCHARGE: 05/24/2020 DISCHARGING PHYSICIAN: Perry Lam PROCEDURES: At [facility], status post stress test evaluation with normal readings without any reversible ischemia. DISCHARGING DIAGNOSES: 1. Atypical chest pain, likely musculoskeletal in nature. 2. Generalized weakness. 3. Anxiety and depression. 4. Benign essential hypertension which is labile, lowest without any symptoms being around 85 mmHg per patient. HOSPITAL COURSE: This is a very pleasant 59-year-old female with past medical history of scoliosis, hyponatremia, restless legs syndrome, anxiety, and depression along with degenerative disk disease, TIAs, presenting with complaints of chest pain 3/10 in severity when present associated with pressure. According to the patient, her pain radiated to her neck without any associated diaphoresis, nausea, or vomiting. The patient further was evaluated and advised about stress test evaluation, which was done without any complications after informed consent. The patient's stress test did not show any evidence of reversible ischemia and at this point of time, she was advised about discharge planning. Discussion in regard to the patient's blood pressure, the lowest being around 85 and highest around 140s was noted. Advised her about continuation of home medications. The patient also did not have any evidence of orthostatics. At this point of time, patient has been advised about discharge plan and outpatient followup with her primary care physician in 2 weeks. The whole discharge evaluation took me more than 35 minutes. The patient was hemodynamically optimized on discharge. DISPOSITION: Discharged home. PHYSICAL EXAMINATION: CVS: S1, S2. CHEST: Bilateral air entry present. ABDOMEN: Soft. EXTREMITIES: No cyanosis. DISCHARGE PLAN: The patient has been advised and educated about the diagnosis, treatment, and followup. Advised about followup care with a PCP in 2 weeks. Advised about continuation of baby aspirin along with other medications as prescribed at home. The whole discharge process including discharge coordination took me more than 35 minutes. Job ID: [id number]
== END 2020-05-24 16:19 | disposition home or self-care (01) ==
LOC: ERS 09:12 → ERHOLD 12:05 → 2NO 16:25
PROVIDERS: ADMIT Internal Medicine; ATTEND Student in an Organized Health Care Education/Training Program
DX: R07.89 Other chest pain (principal); R53.1 Weakness; F41.9 Anxiety disorder, unspecified; F32.9 Major depressive disorder, single episode, unspecified; I10 Essential (primary) hypertension; G25.81 Restless legs syndrome; M41.9 Scoliosis, unspecified; G89.29 Other chronic pain; M54.9 Dorsalgia, unspecified; Z79.899 Other long term (current) drug therapy; Z86.73 Personal history of transient ischemic attack (TIA), and cerebral infarction without residual deficits; Z20.822 Contact with and (suspected) exposure to COVID-19
CPT/HCPCS: 36415; 71045; 78452; 80053; 82550; 83690; 83735; 84484; 85025; 85652; 86140; 87635; 93005; 93010; 93017; 94760; 96372; A9500; G0378; J0153; J1650; J7030; U0003; U0005

== ENCOUNTER 2020-08-13 10:31 | Observation (INO) | payer OTHER, SELFPAY ==
[2020-08-13 12:16] LABS: #Eosinphils 0.2 thou/uL (0.0-0.7); #Lymphocytes 1.6 thou/uL (1.20-3.40); #Monocytes 0.4 thou/uL (0.11-0.59); #Neutrophils 1.9 thou/uL (1.40-6.50); %Eosinophils 5.5 % (0.0-10.0); %Lymphocytes 38.6 % (21.0-51.0); %Monocytes 9.7 % (0.0-10.0); %Neutrophils 45.2 % (42.0-75.0); Hemoglobin 10.5 g/dL (12.0-16.0); Mean Corpuscular HGB CONC 34.3 g/dL (32.0-36.0); Mean Corpuscular Hemoglobin 31.7 pg (27.0-31.0); Mean Corpuscular Volume 92.3 fL (78.0-98.0); Mean Platelet Volume 7.3 fL (7.4-10.4); Platelet Count 209 thou/uL (130-400); RBC Distribution Width 11.3 % (11.5-14.5); Red Blood Cell (RBC) Count 3.31 mill/uL (4.20-5.40); White Blood Cell (WBC) Count 4.2 thou/uL (4.8-10.8)
[2020-08-13 12:38] LABS: Acetaminophen Less than 6.0 mcg/mL (10.0-30.0); Alcohol Less than 10 mg/dL (Less than 10); CK (CPK) 36 U/L (29-168); Lipase 57 U/L (8-78); Salicylate Less than 8.0 mg/dL (15.0-30.0)
[2020-08-13 12:39] LABS: ALT (SGPT) 18 U/L (8-55); AST (SGOT) 24 U/L (5-34); Albumin 4.1 g/dL (3.5-5.0); Alkaline Phosphatase 163 U/L (40-110); Anion Gap 12 mmol/L (10-20); BUN (Urea Nitrogen) 15 mg/dL (9.8-20.1); Bilirubin, Total 0.3 mg/dL (0.2-1.2); Calc. Creatinine Clearance 0 mL/min (70-130); Calcium 9.4 mg/dL (7.8-10.44); Carbon Dioxide 25 mmol/L (22-29); Chloride 108 mmol/L (98-107); Globulin 2.6 g/dL (2.4-3.5); Glucose 84 mg/dL (70-105); Potassium 4.3 mmol/L (3.5-5.1); Protein, Total 6.7 g/dL (6.0-8.3); Sodium 141 mmol/L (136-145)
[2020-08-13 13:12] LABS: Bilirubin Negative (Negative); Blood, Urine Negative (Negative); Clarity Clear (Clear); Glucose, Urine (Dipstick) Normal (Negative); Ketone, Urine Negative (Negative); Leukocyte Negative Leu/uL (Negative); Nitrite Negative (Negative); Protein, Urine (Dipstick) Negative (Neg-Trace); Urobilinogen Normal mg/dL (Less than 2); pH, Urine 5.5 (5.0-9.0)
[2020-08-13 13:29] LABS: Amphetamine Not Detected (NotDetected); Barbiturates Screen Not Detected (NotDetected); Benzodiazepine Screen Not Detected (NotDetected); Cocaine Metabolite Screen Not Detected (NotDetected); Medtox Control Line Valid? VALID (VALID); Medtox Reader # READER 1; Methadone Not Detected (NotDetected); Methamphetamine Not Detected (NotDetected); Opiate Screen Not Detected (NotDetected); Oxycodone Screen Not Detected (NotDetected); Phencyclidine (PCP) Not Detected (NotDetected); THC/Cannabinoid Screen Not Detected (NotDetected); Tricyclic Screen Detected (NotDetected)
[2020-08-13] MEDS ORDERED: Ondansetron PF 4 MG/2 ML Vial IVP PRN (15:27)
[2020-08-13] MEDS ORDERED: Ondansetron ODT 4 MG TAB PO PRN (15:27)
[2020-08-13] MEDS: HYDROcodone/Acetaminophen 5/325 mg Tablet PO PRN ×2 (17:05→22:28)
[2020-08-13] MEDS ORDERED: methylPREDNISolone Sod Succ/PF 125 MG/2 ML VIAL IVP SCH (18:00)
[2020-08-13 18:29] VITALS: BMI 25.2
[2020-08-13] MEDS: clonazePAM 1 MG TAB PO PRN (20:43)
[2020-08-13] MEDS: rOPINIRole HCl 2 MG TAB PO SCH (20:44)
[2020-08-13] MEDS: traZODone HCl 150 MG TAB PO PRN (20:44)
[2020-08-13] MEDS: Baclofen 10 MG TAB PO PRN (20:44)
[2020-08-13] MEDS: Gabapentin 400 MG CAP PO SCH (20:44)
[2020-08-13] MEDS: Bupropion 150 MG SR TAB PO SCH (20:44)
[2020-08-14 00:31] LABS: SARS-CoV-2 PCR by NAA Not Detected (NotDetected)
[2020-08-14] MEDS: Acetaminophen 325 MG TAB PO PRN ×2 (02:34→23:14)
[2020-08-14] MEDS: HYDROcodone/Acetaminophen 5/325 mg Tablet PO PRN ×4 (04:04→18:13)
[2020-08-14 04:50] LABS: #Lymphocytes 0.9 thou/uL (1.20-3.40); #Neutrophils 3.9 thou/uL (1.40-6.50); %Eosinophils 0.1 % (0.0-10.0); %Lymphocytes 18.1 % (21.0-51.0); %Monocytes 0.6 % (0.0-10.0); %Neutrophils 81.1 % (42.0-75.0); Mean Corpuscular HGB CONC 34.2 g/dL (32.0-36.0); Mean Corpuscular Hemoglobin 31.6 pg (27.0-31.0); Mean Corpuscular Volume 92.3 fL (78.0-98.0); Mean Platelet Volume 7.5 fL (7.4-10.4); Platelet Count 216 thou/uL (130-400); RBC Distribution Width 11.2 % (11.5-14.5); Red Blood Cell (RBC) Count 3.17 mill/uL (4.20-5.40); White Blood Cell (WBC) Count 4.8 thou/uL (4.8-10.8)
[2020-08-14 05:12] LABS: Anion Gap 16 mmol/L (10-20); BUN (Urea Nitrogen) 15 mg/dL (9.8-20.1); Calc. Creatinine Clearance 52 mL/min (70-130); Calcium 8.9 mg/dL (7.8-10.44); Carbon Dioxide 20 mmol/L (22-29); Chloride 106 mmol/L (98-107); Glucose 210 mg/dL (70-105); Potassium 4.3 mmol/L (3.5-5.1); Sodium 138 mmol/L (136-145)
[2020-08-14] MEDS: Gabapentin 400 MG CAP PO SCH ×2 (07:30→20:13)
[2020-08-14] MEDS: Bupropion 150 MG SR TAB PO SCH ×2 (07:31→20:13)
[2020-08-14] MEDS: clonazePAM 1 MG TAB PO PRN ×2 (07:33→23:14)
[2020-08-14 08:17] LABS: Hemoglobin A1c 5.2 % (4.0-6.0)
[2020-08-14] MEDS ORDERED: Aspirin Chewable 81 MG TAB PO SCH (09:00)
[2020-08-14] MEDS: Calcium Carbonate 500 MG ChewTAB PO PRN ×2 (09:00→14:19)
[2020-08-14] MEDS ORDERED: HYDROmorphone 0.5 MG/0.5 ML SYRINGE SLOW IVP SCH (18:30)
[2020-08-14] MEDS: rOPINIRole HCl 2 MG TAB PO SCH (20:12)
[2020-08-14] MEDS: traZODone HCl 150 MG TAB PO PRN (23:14)
[2020-08-15] MEDS: HYDROcodone/Acetaminophen 5/325 mg Tablet PO PRN ×5 (00:31→17:42)
[2020-08-15] MEDS: Baclofen 10 MG TAB PO PRN ×2 (03:51→20:21)
[2020-08-15] MEDS: Gabapentin 400 MG CAP PO SCH ×2 (09:29→20:20)
[2020-08-15] MEDS: Calcium Carbonate 500 MG ChewTAB PO PRN (09:29)
[2020-08-15] MEDS: Bupropion 150 MG SR TAB PO SCH ×2 (09:30→20:20)
[2020-08-15] MEDS: Lorazepam 2 MG/ML VIAL SLOW IVP SCH (09:52)
[2020-08-15] MEDS ORDERED: Magnevist 469MG/ML 20 ML VIAL ONE (10:48)
[2020-08-15] MEDS: clonazePAM 1 MG TAB PO PRN ×2 (11:45→20:21)
[2020-08-15] MEDS ORDERED: Dextrose 5% in Water 1,000 ML IV PRN (17:45)
[2020-08-15] MEDS ORDERED: Dextrose 50% Abboject 50 ML SYRINGE IVP PRN (17:45)
[2020-08-15] MEDS ORDERED: Insulin Regular 300 UNITS/3 ML VIAL SC PRN (17:45)
[2020-08-15] MEDS ORDERED: methylPREDNISolone Sod Succ 1,000 MG in Sodium Chloride 0.9% 100 ML IVPB SCH (18:00)
[2020-08-15] MEDS: traZODone HCl 150 MG TAB PO PRN (20:20)
[2020-08-15] MEDS: rOPINIRole HCl 2 MG TAB PO SCH (20:21)
[2020-08-16] MEDS: HYDROcodone/Acetaminophen 5/325 mg Tablet PO PRN ×4 (01:33→14:59)
[2020-08-16] MEDS: Acetaminophen 325 MG TAB PO PRN (04:00)
[2020-08-16] MEDS: Lorazepam 2 MG/ML VIAL SLOW IVP SCH (08:00)
[2020-08-16] MEDS: Bupropion 150 MG SR TAB PO SCH (08:52)
[2020-08-16] MEDS: Gabapentin 400 MG CAP PO SCH (08:52)
[2020-08-16] MEDS: clonazePAM 1 MG TAB PO PRN (08:58)
[2020-08-16] MEDS ORDERED: Polyethylene Glycol 3350 17 GM Packet PO SCH (09:00)
[2020-08-16] MEDS ORDERED: Magnevist 469MG/ML 20 ML VIAL ONE (09:52)
[2020-08-16] MEDS: Calcium Carbonate 500 MG ChewTAB PO PRN (11:50)
[2020-08-16 11:58] VITALS: BP 143/82; TEMP 98
== END 2020-08-16 15:16 | disposition home health service (06) ==
LOC: ERS 10:31 → 2SE 13:48
PROVIDERS: ADMIT Family Medicine; ATTEND Internal Medicine
DX: R29.898 Other symptoms and signs involving the musculoskeletal system (principal); G89.29 Other chronic pain; M54.5 Low back pain; M41.9 Scoliosis, unspecified; G25.81 Restless legs syndrome; I12.9 Hypertensive chronic kidney disease with stage 1 through stage 4 chronic kidney disease, or unspecified chronic kidney disease; N18.31 Chronic kidney disease, stage 3a; D72.819 Decreased white blood cell count, unspecified; D64.9 Anemia, unspecified; M43.16 Spondylolisthesis, lumbar region; M51.36 Other intervertebral disc degeneration, lumbar region; M50.30 Other cervical disc degeneration, unspecified cervical region; M48.02 Spinal stenosis, cervical region; M43.12 Spondylolisthesis, cervical region; Z79.899 Other long term (current) drug therapy; Z20.822 Contact with and (suspected) exposure to COVID-19
CPT/HCPCS: 36415; 36416; 70450; 70553; 72141; 72142; 72148; 80048; 80053; 80306; 80307; 81003; 82140; 82550; 82607; 82746; 83036; 83690; 84425; 84439; 84443; 84481; 84484; 85025; 85652; 86140; 87635; 93005; 95712; 95819; 95957; 96365; 96366; 96375; 96376; A9579; G0378; J1170; J1815; J2060; J2930; J3490; U0003; U0005

== ENCOUNTER 2020-09-24 09:08 | Inpatient (IN) | payer OTHER, SELFPAY ==
[2020-09-24 11:01] LABS: #Basophils 0.1 thou/uL (0.0-0.2); #Eosinphils 0.4 thou/uL (0.0-0.7); #Lymphocytes 2.7 thou/uL (1.20-3.40); #Monocytes 0.5 thou/uL (0.11-0.59); %Basophils 0.8 % (0.0-1.0); %Eosinophils 5.5 % (0.0-10.0); %Lymphocytes 40.2 % (21.0-51.0); %Monocytes 8.1 % (0.0-10.0); %Neutrophils 45.4 % (42.0-75.0); Hemoglobin 12.6 g/dL (12.0-16.0); Mean Corpuscular HGB CONC 34.7 g/dL (32.0-36.0); Mean Corpuscular Hemoglobin 32.3 pg (27.0-31.0); Mean Corpuscular Volume 92.9 fL (78.0-98.0); Mean Platelet Volume 7.5 fL (7.4-10.4); Platelet Count 211 thou/uL (130-400); RBC Distribution Width 11.4 % (11.5-14.5); White Blood Cell (WBC) Count 6.6 thou/uL (4.8-10.8)
[2020-09-24 11:18] LABS: ALT (SGPT) 17 U/L (8-55); AST (SGOT) 31 U/L (5-34); Albumin 4.2 g/dL (3.5-5.0); Alkaline Phosphatase 165 U/L (40-110); Anion Gap 18 mmol/L (10-20); BUN (Urea Nitrogen) 10 mg/dL (9.8-20.1); Bilirubin, Total 0.3 mg/dL (0.2-1.2); Calc. Creatinine Clearance 0 mL/min (70-130); Calcium 9.1 mg/dL (7.8-10.44); Carbon Dioxide 24 mmol/L (22-29); Chloride 104 mmol/L (98-107); Glucose 94 mg/dL (70-105); Potassium 3.9 mmol/L (3.5-5.1); Protein, Total 7.2 g/dL (6.0-8.3); Sodium 142 mmol/L (136-145)
[2020-09-24 12:20] LABS: Bilirubin Negative (Negative); Blood, Urine Trace (Negative); Glucose, Urine (Dipstick) Negative (Negative); Ketone, Urine Negative (Negative); Leukocyte Negative (Negative); Nitrite Negative (Negative); Protein, Urine (Dipstick) Negative (Neg-Trace); Urobilinogen 0.2 mg/dL (Less than 2); pH, Urine 6.5 (5.0-9.0)
[2020-09-24 12:23] LABS: Bacteria/HPF None Seen HPF (None Seen); Clarity Clear (Clear); RBC/HPF 0-3 HPF (0-3); Specific Gravity, Urine 1.006 (1.005-1.030); Squamous Epithelial 0-3 HPF (0-3); WBC/HPF 0-3 HPF (0-3)
[2020-09-24] MEDS ORDERED: Morphine 4 MG/ML VIAL ONE (13:16)
[2020-09-24] MEDS ORDERED: Acetaminophen 325 MG TAB PO PRN (15:14)
[2020-09-24] MEDS ORDERED: Enoxaparin Sodium 30 MG/0.3 ML SYRINGE SC SCH (16:15)
[2020-09-24 16:44] LABS: Thyroid Stimulating Hormone 0.6714 uIU/mL (0.35-4.94)
[2020-09-24] MEDS: HYDROcodone/Acetaminophen 5/325 mg Tablet PO PRN ×2 (17:54→22:09)
[2020-09-24] MEDS ORDERED: Enoxaparin Sodium 30 MG/0.3 ML SYRINGE ONE (17:55)
[2020-09-24] MEDS ORDERED: HYDROcodone/Acetaminophen 5/325 mg Tablet ONE (17:55)
[2020-09-24 20:30] VITALS: BMI 24.5
[2020-09-24] MEDS: traZODone HCl 150 MG TAB PO PRN (22:08)
[2020-09-24] MEDS: Bupropion 150 MG SR TAB PO SCH (22:08)
[2020-09-25] MEDS: HYDROcodone/Acetaminophen 5/325 mg Tablet PO PRN ×5 (02:08→19:43)
[2020-09-25] MEDS: Bupropion 150 MG SR TAB PO SCH ×2 (08:13→20:57)
[2020-09-25] MEDS: Lidocaine 5% Patch TD SCH (08:13)
[2020-09-25] MEDS: Gabapentin 400 MG CAP PO SCH ×2 (08:13→20:58)
[2020-09-25] MEDS: Atorvastatin Calcium 40 MG TAB PO SCH (08:13)
[2020-09-25] MEDS: Aspirin Chewable 81 MG TAB PO SCH (08:14)
[2020-09-25] MEDS: Enoxaparin Sodium 30 MG/0.3 ML SYRINGE SC SCH (08:22)
[2020-09-25] MEDS ORDERED: Lisinopril 20 MG TAB PO SCH (09:00)
[2020-09-25] MEDS ORDERED: Docusate 100 MG CAP PO SCH (10:00)
[2020-09-25] MEDS ORDERED: Polyethylene Glycol 3350 17 GM Packet PO SCH (10:00)
[2020-09-25] MEDS: Baclofen 10 MG TAB PO SCH (20:57)
[2020-09-25] MEDS: Docusate 100 MG CAP PO SCH (20:58)
[2020-09-25] MEDS: clonazePAM 1 MG TAB PO PRN (21:13)
[2020-09-25] MEDS: traZODone HCl 150 MG TAB PO PRN (21:13)
[2020-09-25] MEDS: Transdermal Patch Removal TOP SCH (21:15)
[2020-09-26] MEDS: HYDROcodone/Acetaminophen 5/325 mg Tablet PO PRN ×5 (01:20→21:16)
[2020-09-26] MEDS ORDERED: Ondansetron PF 4 MG/2 ML Vial IVP PRN (08:07)
[2020-09-26] MEDS: Bupropion 150 MG SR TAB PO SCH ×2 (08:31→21:08)
[2020-09-26] MEDS: clonazePAM 1 MG TAB PO PRN ×2 (08:31→22:54)
[2020-09-26] MEDS: Polyethylene Glycol 3350 17 GM Packet PO SCH (08:31)
[2020-09-26] MEDS: Lidocaine 5% Patch TD SCH (08:31)
[2020-09-26] MEDS: Aspirin Chewable 81 MG TAB PO SCH (08:32)
[2020-09-26] MEDS: Docusate 100 MG CAP PO SCH ×2 (08:32→21:09)
[2020-09-26] MEDS: Atorvastatin Calcium 40 MG TAB PO SCH (08:32)
[2020-09-26] MEDS: Gabapentin 400 MG CAP PO SCH ×2 (08:32→21:11)
[2020-09-26] MEDS ORDERED: Heparin 5,000 UNITS/ML VIAL SC SCH (09:00)
[2020-09-26] MEDS: Enoxaparin Sodium 30 MG/0.3 ML SYRINGE SC SCH (10:25)
[2020-09-26] MEDS: Calcium Carbonate 500 MG ChewTAB PO PRN ×2 (11:53→21:12)
[2020-09-26] MEDS: Baclofen 10 MG TAB PO SCH (21:08)
[2020-09-26] MEDS: Transdermal Patch Removal TOP SCH (21:12)
[2020-09-26] MEDS: traZODone HCl 150 MG TAB PO PRN (21:13)
[2020-09-27] MEDS: HYDROcodone/Acetaminophen 5/325 mg Tablet PO PRN ×3 (04:04→12:07)
[2020-09-27 05:11] LABS: #Basophils 0.1 thou/uL (0.0-0.2); #Eosinphils 0.3 thou/uL (0.0-0.7); #Lymphocytes 1.7 thou/uL (1.20-3.40); #Monocytes 0.8 thou/uL (0.11-0.59); #Neutrophils 3.8 thou/uL (1.40-6.50); %Lymphocytes 25.1 % (21.0-51.0); %Monocytes 11.8 % (0.0-10.0); %Neutrophils 57.1 % (42.0-75.0); Hemoglobin 11.1 g/dL (12.0-16.0); Mean Corpuscular HGB CONC 35.2 g/dL (32.0-36.0); Mean Corpuscular Hemoglobin 32.2 pg (27.0-31.0); Mean Corpuscular Volume 91.4 fL (78.0-98.0); Mean Platelet Volume 7.1 fL (7.4-10.4); Platelet Count 201 thou/uL (130-400); RBC Distribution Width 11.2 % (11.5-14.5); Red Blood Cell (RBC) Count 3.46 mill/uL (4.20-5.40); White Blood Cell (WBC) Count 6.6 thou/uL (4.8-10.8)
[2020-09-27 05:38] LABS: Anion Gap 14 mmol/L (10-20); BUN (Urea Nitrogen) 8 mg/dL (9.8-20.1); Calc. Creatinine Clearance 67 mL/min (70-130); Calcium 9.1 mg/dL (7.8-10.44); Carbon Dioxide 26 mmol/L (22-29); Chloride 101 mmol/L (98-107); Glucose 104 mg/dL (70-105); Potassium 3.5 mmol/L (3.5-5.1); Sodium 137 mmol/L (136-145)
[2020-09-27 07:47] VITALS: BP 113/81; TEMP 98.2
[2020-09-27] MEDS: Lidocaine 5% Patch TD SCH (08:05)
[2020-09-27] MEDS: Gabapentin 400 MG CAP PO SCH (08:06)
[2020-09-27] MEDS: Aspirin Chewable 81 MG TAB PO SCH (08:07)
[2020-09-27] MEDS: Atorvastatin Calcium 40 MG TAB PO SCH (08:07)
[2020-09-27] MEDS: Bupropion 150 MG SR TAB PO SCH (08:07)
[2020-09-27] MEDS: Polyethylene Glycol 3350 17 GM Packet PO SCH (08:08)
[2020-09-27] MEDS: Enoxaparin Sodium 30 MG/0.3 ML SYRINGE SC SCH (08:08)
[2020-09-27] MEDS: Docusate 100 MG CAP PO SCH (08:08)
[2020-09-27] MEDS: clonazePAM 1 MG TAB PO PRN (08:57)
[2020-09-27] MEDS: Calcium Carbonate 500 MG ChewTAB PO PRN (10:14)
== END 2020-09-27 12:37 | disposition home health service (06) | DRG 556 ==
LOC: ERS 09:08 → ERHOLD 14:58 → 2SE 19:50
PROVIDERS: ADMIT Internal Medicine; ATTEND Internal Medicine
DX: M25.552 Pain in left hip (principal); G25.81 Restless legs syndrome; M54.5 Low back pain; G89.29 Other chronic pain; M41.9 Scoliosis, unspecified; F41.9 Anxiety disorder, unspecified; F32.9 Major depressive disorder, single episode, unspecified; M47.816 Spondylosis without myelopathy or radiculopathy, lumbar region; Z82.49 Family history of ischemic heart disease and other diseases of the circulatory system; Z86.73 Personal history of transient ischemic attack (TIA), and cerebral infarction without residual deficits; Z91.81 History of falling; Z79.899 Other long term (current) drug therapy; Z79.82 Long term (current) use of aspirin
CPT/HCPCS: 36415; 70450; 71045; 72131; 72170; 80048; 80053; 81003; 82306; 82550; 82607; 84425; 84443; 84484; 85025; 93005; 96372; J1650; J2270

== ENCOUNTER 2020-12-15 08:32 | Observation (INO) | payer OTHER, SELFPAY ==
[2020-12-15] MEDS ORDERED: traMADol HCl 50 MG TAB ONE (09:07)
[2020-12-15 09:12] LABS: #Eosinphils 0.2 thou/uL (0.0-0.7); #Lymphocytes 1.4 thou/uL (1.20-3.40); #Monocytes 1.2 thou/uL (0.11-0.59); #Neutrophils 9.1 thou/uL (1.40-6.50); %Basophils 0.2 % (0.0-1.0); %Eosinophils 1.4 % (0.0-10.0); %Monocytes 9.8 % (0.0-10.0); %Neutrophils 76.6 % (42.0-75.0); Hemoglobin 11.1 g/dL (12.0-16.0); Mean Corpuscular HGB CONC 35.4 g/dL (32.0-36.0); Mean Corpuscular Volume 90.3 fL (78.0-98.0); Mean Platelet Volume 7.3 fL (7.4-10.4); Platelet Count 204 thou/uL (130-400); RBC Distribution Width 11.7 % (11.5-14.5); Red Blood Cell (RBC) Count 3.47 mill/uL (4.20-5.40); White Blood Cell (WBC) Count 11.9 thou/uL (4.8-10.8)
[2020-12-15] MEDS ORDERED: Dexamethasone 10 MG/ML VIAL ONE (09:18)
[2020-12-15 09:35] LABS: ALT (SGPT) 25 U/L (8-55); AST (SGOT) 37 U/L (5-34); Alkaline Phosphatase 201 U/L (40-110); Anion Gap 13 mmol/L (10-20); BUN (Urea Nitrogen) 15 mg/dL (9.8-20.1); Bilirubin, Total 0.3 mg/dL (0.2-1.2); Calc. Creatinine Clearance 0 mL/min (70-130); Calcium 9.6 mg/dL (7.8-10.44); Carbon Dioxide 24 mmol/L (23-31); Chloride 103 mmol/L (98-107); Globulin 2.7 g/dL (2.4-3.5); Glucose 101 mg/dL (80-115); Potassium 4.4 mmol/L (3.5-5.1); Protein, Total 6.7 g/dL (5.8-8.1); Sodium 136 mmol/L (136-145)
[2020-12-15 10:19] LABS: CK (CPK) 50 U/L (29-168); Lipase 27 U/L (8-78)
[2020-12-15 11:04] LABS: Bilirubin Negative (Negative); Blood, Urine Negative (Negative); Clarity Clear (Clear); Glucose, Urine (Dipstick) Normal (Negative); Ketone, Urine Negative (Negative); Leukocyte Negative Leu/uL (Negative); Nitrite Negative (Negative); Protein, Urine (Dipstick) Negative (Neg-Trace); Specific Gravity, Urine 1.007 (1.002-1.036); Urobilinogen Normal mg/dL (Less than 2); pH, Urine 5.5 (5.0-9.0)
[2020-12-15] MEDS ORDERED: Ondansetron ODT 4 MG TAB PO PRN (12:01)
[2020-12-15] MEDS ORDERED: Acetaminophen 325 MG TAB PO PRN ×2 (12:01→12:46)
[2020-12-15] MEDS ORDERED: Acetaminophen 500 MG TAB PO SCH (12:15)
[2020-12-15] MEDS ORDERED: clonazePAM 1 MG TAB PO PRN (13:11)
[2020-12-15] MEDS ORDERED: Fentanyl 100 MCG/2 ML VIAL ONE (14:19)
[2020-12-15 15:34] VITALS: BMI 25.4
[2020-12-15 16:27] LABS: SARS-CoV-2 NAA Rapid Test Not Detected (NotDetected)
[2020-12-15] MEDS: Sodium Chloride 0.9% 1,000 ML IV SCH (16:52)
[2020-12-15] MEDS: Gabapentin 400 MG CAP PO SCH (20:49)
[2020-12-15] MEDS: Bupropion 150 MG SR TAB PO SCH (20:50)
[2020-12-15] MEDS: clonazePAM 1 MG TAB PO SCH (20:50)
[2020-12-15] MEDS ORDERED: Baclofen 10 MG TAB PO SCH (21:00)
[2020-12-15] MEDS ORDERED: Atorvastatin Calcium 40 MG TAB PO SCH (21:00)
[2020-12-15] MEDS: Acetaminophen 500 MG TAB PO PRN (21:50)
[2020-12-16] MEDS ORDERED: Melatonin 3 MG TAB PO PRN (02:23)
[2020-12-16 03:46] LABS: #Lymphocytes 1.4 thou/uL (1.20-3.40); #Monocytes 0.9 thou/uL (0.11-0.59); #Neutrophils 8.5 thou/uL (1.40-6.50); %Basophils 0.1 % (0.0-1.0); %Eosinophils 0.2 % (0.0-10.0); %Lymphocytes 12.6 % (21.0-51.0); %Monocytes 7.9 % (0.0-10.0); %Neutrophils 79.3 % (42.0-75.0); Hemoglobin 11.5 g/dL (12.0-16.0); Mean Corpuscular Hemoglobin 32.1 pg (27.0-31.0); Mean Corpuscular Volume 91.7 fL (78.0-98.0); Mean Platelet Volume 7.6 fL (7.4-10.4); Platelet Count 189 thou/uL (130-400); RBC Distribution Width 11.8 % (11.5-14.5); Red Blood Cell (RBC) Count 3.58 mill/uL (4.20-5.40); White Blood Cell (WBC) Count 10.7 thou/uL (4.8-10.8)
[2020-12-16] MEDS: Acetaminophen 500 MG TAB PO PRN ×2 (03:59→11:04)
[2020-12-16 04:05] LABS: ALT (SGPT) 23 U/L (8-55); AST (SGOT) 27 U/L (5-34); Albumin 3.8 g/dL (3.4-4.8); Alkaline Phosphatase 178 U/L (40-110); Anion Gap 14 mmol/L (10-20); BUN (Urea Nitrogen) 13 mg/dL (9.8-20.1); Bilirubin, Total 0.3 mg/dL (0.2-1.2); Calc. Creatinine Clearance 52 mL/min (70-130); Calcium 8.6 mg/dL (7.8-10.44); Carbon Dioxide 19 mmol/L (23-31); Chloride 110 mmol/L (98-107); Globulin 2.6 g/dL (2.4-3.5); Glucose 152 mg/dL (80-115); Potassium 4.3 mmol/L (3.5-5.1); Protein, Total 6.4 g/dL (5.8-8.1); Sodium 139 mmol/L (136-145)
[2020-12-16] MEDS ORDERED: Cosyntropin 250 MCG VIAL SLOW IVP SCH (05:00)
[2020-12-16] MEDS: Sodium Chloride 0.9% 1,000 ML IV SCH ×2 (06:01→14:23)
[2020-12-16 07:40] VITALS: TEMP 98
[2020-12-16] MEDS: clonazePAM 1 MG TAB PO SCH (08:57)
[2020-12-16] MEDS: Gabapentin 400 MG CAP PO SCH (08:57)
[2020-12-16] MEDS: Bupropion 150 MG SR TAB PO SCH (08:58)
[2020-12-16] MEDS ORDERED: Aspirin Chewable 81 MG TAB PO SCH (09:00)
[2020-12-16 11:09] VITALS: BP 102/59
[2020-12-16] MEDS ORDERED: HYDROcodone/Acetaminophen 5/325 mg Tablet PO PRN (11:17)
== END 2020-12-16 15:23 | disposition home or self-care (01) ==
LOC: ERS 08:32 → ERHOLD 10:43 → 2NO 14:59
PROVIDERS: ADMIT Family Medicine; ATTEND Hospitalist
DX: I95.9 Hypotension, unspecified (principal); G89.29 Other chronic pain; M54.42 Lumbago with sciatica, left side; M54.10 Radiculopathy, site unspecified; M41.9 Scoliosis, unspecified; G25.81 Restless legs syndrome; I10 Essential (primary) hypertension; N17.9 Acute kidney failure, unspecified; D72.829 Elevated white blood cell count, unspecified; D64.9 Anemia, unspecified; S00.83XA Contusion of other part of head, initial encounter; F41.9 Anxiety disorder, unspecified; F32.9 Major depressive disorder, single episode, unspecified; F19.239 Other psychoactive substance dependence with withdrawal, unspecified; R56.9 Unspecified convulsions; Z86.73 Personal history of transient ischemic attack (TIA), and cerebral infarction without residual deficits; Z79.82 Long term (current) use of aspirin; Z79.899 Other long term (current) drug therapy; Z20.822 Contact with and (suspected) exposure to COVID-19; W19.XXXA Unspecified fall, initial encounter
CPT/HCPCS: 36415; 36416; 70450; 71045; 76770; 80053; 81003; 82274; 82533; 82550; 83605; 83690; 84443; 84484; 85025; 87040; 93005; 96374; 96375; G0378; J1100; J3010; J7050; U0002

== ENCOUNTER 2021-03-15 11:10 | Emergency (ER) | payer OTHER ==
[2021-03-15] MEDS ORDERED: Morphine 4 MG/ML VIAL ONE (11:58)
== END 2021-03-15 13:27 | disposition home or self-care (01) ==
LOC: ERS 11:10
DX: S09.90XA Unspecified injury of head, initial encounter (principal); S40.212A Abrasion of left shoulder, initial encounter; S00.01XA Abrasion of scalp, initial encounter; W10.9XXA Fall (on) (from) unspecified stairs and steps, initial encounter; I10 Essential (primary) hypertension; G25.81 Restless legs syndrome; E87.1 Hypo-osmolality and hyponatremia; Z86.73 Personal history of transient ischemic attack (TIA), and cerebral infarction without residual deficits; Z79.899 Other long term (current) drug therapy
CPT/HCPCS: 70450; 72125; 96372; J2270

== ENCOUNTER 2021-03-16 08:04 | Emergency (ER) | payer OTHER ==
[2021-03-16] MEDS ORDERED: HYDROcodone/Acetaminophen 5/325 mg Tablet ONE (09:50)
== END 2021-03-16 10:03 | disposition home or self-care (01) ==
LOC: ERS 08:04
DX: S60.212A Contusion of left wrist, initial encounter (principal); S00.01XA Abrasion of scalp, initial encounter; S40.212A Abrasion of left shoulder, initial encounter; I10 Essential (primary) hypertension; Z79.899 Other long term (current) drug therapy; W19.XXXA Unspecified fall, initial encounter

== ENCOUNTER 2021-11-17 09:01 | Observation (INO) | payer OTHER, SELFPAY ==
[2021-11-17 09:26] LABS: Bilirubin Negative (Negative); Blood, Urine Negative (Negative); Clarity Clear (Clear); Glucose, Urine (Dipstick) Normal (Negative); Ketone, Urine Negative (Negative); Leukocyte Negative Leu/uL (Negative); Nitrite Negative (Negative); Protein, Urine (Dipstick) Negative (Neg-Trace); Specific Gravity, Urine 1.005 (1.002-1.036); Urobilinogen Normal mg/dL (Less than 2); pH, Urine 5.5 (5.0-9.0)
[2021-11-17 09:38] LABS: #Monocytes 0.7 thou/uL (0.11-0.59); #Neutrophils 4.5 thou/uL (1.40-6.50); %Basophils 0.3 % (0.0-1.0); %Eosinophils 0.2 % (0.0-10.0); %Lymphocytes 27.4 % (21.0-51.0); %Monocytes 9.6 % (0.0-10.0); %Neutrophils 62.4 % (42.0-75.0); Hemoglobin 12.6 g/dL (12.0-16.0); Mean Corpuscular HGB CONC 33.5 g/dL (32.0-36.0); Mean Corpuscular Hemoglobin 30.6 pg (27.0-31.0); Mean Corpuscular Volume 91.3 fL (78.0-98.0); Mean Platelet Volume 7.3 fL (7.4-10.4); Platelet Count 301 thou/uL (130-400); RBC Distribution Width 11.3 % (11.5-14.5); Red Blood Cell (RBC) Count 4.12 mill/uL (4.20-5.40); White Blood Cell (WBC) Count 7.2 thou/uL (4.8-10.8)
[2021-11-17 10:04] LABS: ALT (SGPT) 30 U/L (8-55); AST (SGOT) 42 U/L (5-34); Albumin 4.4 g/dL (3.4-4.8); Alkaline Phosphatase 129 U/L (40-110); Anion Gap 17 mmol/L (10-20); BUN (Urea Nitrogen) 8 mg/dL (9.8-20.1); Bilirubin, Total 0.4 mg/dL (0.2-1.2); Calc. Creatinine Clearance 0 mL/min (70-130); Calcium 9.9 mg/dL (7.8-10.44); Carbon Dioxide 21 mmol/L (23-31); Chloride 98 mmol/L (98-107); Estimated GFR 81; Globulin 2.9 g/dL (2.4-3.5); Glucose 114 mg/dL (80-115); Potassium 4.8 mmol/L (3.5-5.1); Protein, Total 7.3 g/dL (5.8-8.1); Sodium 131 mmol/L (136-145)
[2021-11-17] MEDS ORDERED: Acetaminophen 325 MG TAB PO PRN (12:03)
[2021-11-17] MEDS ORDERED: Nitroglycerin 0.4 MG TAB (25 Tab Bottle) SL PRN (12:12)
[2021-11-17 13:45] LABS: Troponin I Less than 0.010 ng/mL (< 0.028)
[2021-11-17] MEDS ORDERED: Acetaminophen 325 MG TAB ONE (14:06)
[2021-11-17 15:15] VITALS: BMI 23.6
[2021-11-17 15:43] LABS: Troponin I 0.021 ng/mL (< 0.028)
[2021-11-17 16:00] LABS: SARS-CoV-2 NAA Rapid Test Not Detected (NotDetected)
[2021-11-17] MEDS: HYDROcodone/Acetaminophen 5/325 mg Tablet PO SCH ×2 (17:23→23:56)
[2021-11-17] MEDS: Gabapentin 400 MG CAP PO SCH (19:51)
[2021-11-17] MEDS: rOPINIRole HCl 0.25 MG TAB PO SCH (19:52)
[2021-11-17] MEDS ORDERED: Atorvastatin Calcium 40 MG TAB PO SCH (21:00)
[2021-11-17] MEDS: Bupropion 150 MG SR TAB PO SCH (21:00)
[2021-11-17] MEDS ORDERED: traZODone HCl 150 MG TAB PO PRN (21:00)
[2021-11-17] MEDS ORDERED: Baclofen 10 MG TAB PO SCH (21:00)
[2021-11-17] MEDS: clonazePAM 1 MG TAB PO SCH (21:01)
[2021-11-17] MEDS ORDERED: Calcium Carbonate 500 MG ChewTAB PO PRN (21:06)
[2021-11-18] MEDS ORDERED: Sodium Chloride 0.9% 1,000 ML IV SCH (05:00)
[2021-11-18] MEDS: Ketorolac Tromethamine 30 MG/ML VIAL IVP SCH ×2 (05:07→14:01)
[2021-11-18] MEDS: HYDROcodone/Acetaminophen 5/325 mg Tablet PO SCH ×2 (05:25→09:49)
[2021-11-18] MEDS ORDERED: Aspirin Chewable 81 MG TAB PO SCH ×2 (09:00)
[2021-11-18] MEDS ORDERED: Lisinopril 10 MG TAB PO SCH (09:00)
[2021-11-18] MEDS: Bupropion 150 MG SR TAB PO SCH (09:42)
[2021-11-18] MEDS: clonazePAM 1 MG TAB PO SCH (09:42)
[2021-11-18] MEDS: Gabapentin 400 MG CAP PO SCH (09:43)
[2021-11-18] MEDS: rOPINIRole HCl 0.25 MG TAB PO SCH (11:21)
[2021-11-18 12:51] VITALS: BP 104/51; TEMP 98.1
== END 2021-11-18 15:12 | disposition home or self-care (01) ==
LOC: ERS 09:01 → ERHOLD 10:54 → 2SW 10:54
PROVIDERS: ADMIT Internal Medicine; ATTEND Internal Medicine
DX: R07.2 Precordial pain (principal); A08.4 Viral intestinal infection, unspecified; M54.30 Sciatica, unspecified side; M41.9 Scoliosis, unspecified; G25.81 Restless legs syndrome; I10 Essential (primary) hypertension; Z86.73 Personal history of transient ischemic attack (TIA), and cerebral infarction without residual deficits; Z79.82 Long term (current) use of aspirin; Z79.899 Other long term (current) drug therapy; Z20.822 Contact with and (suspected) exposure to COVID-19
CPT/HCPCS: 36415; 71045; 80053; 81003; 83880; 84484; 85025; 93005; 94760; 96374; G0378; J1885; J7050; U0002

== ENCOUNTER 2023-06-14 15:47 | Emergency (ER) | payer BC ==
[2023-06-14] MEDS ORDERED: Dicyclomine 20 MG TAB ONE ×2 (16:26→17:57)
[2023-06-14] MEDS ORDERED: Ketorolac Tromethamine 30 MG (1 mL) VIAL ONE (16:26)
[2023-06-14 16:47] LABS: #Eosinphils 0.2 thou/uL (0.0-0.7); #Monocytes 0.7 thou/uL (0.11-0.59); #Neutrophils 2.4 thou/uL (1.40-6.50); %Basophils 0.7 % (0.0-1.0); %Eosinophils 2.7 % (0.0-10.0); %Lymphocytes 44.1 % (21.0-51.0); %Monocytes 11.9 % (0.0-10.0); %Neutrophils 40.4 % (42.0-75.0); Hematocrit 39.8 % (36.0-47.0); Hemoglobin 13.4 g/dL (12.0-16.0); Mean Corpuscular HGB CONC 33.7 g/dL (32.0-36.0); Mean Corpuscular Hemoglobin 31.6 pg (27.0-31.0); Mean Corpuscular Volume 93.9 fl (78.0-98.0); Mean Platelet Volume 9.7 fL (7.4-10.4); Platelet Count 275 10x3/uL (130-400); RBC Distribution Width 12.5 % (11.5-14.5); Red Blood Cell (RBC) Count 4.24 mill/uL (4.20-5.40)
[2023-06-14 17:13] LABS: ALT (SGPT) 10 U/L (8-55); AST (SGOT) 21 U/L (5-34); Albumin 4.7 g/dL (3.4-4.8); Alkaline Phosphatase 82 U/L (40-110); Anion Gap 17 mmol/L (10-20); BUN (Urea Nitrogen) 18 mg/dL (9.8-20.1); Bilirubin, Total 0.3 mg/dL (0.2-1.2); Calc. Creatinine Clearance 0 mL/min (70-130); Calcium 9.8 mg/dL (7.8-10.44); Carbon Dioxide 24 mmol/L (23-31); Chloride 104 mmol/L (98-107); Estimated GFR 45; Globulin 2.7 g/dL (2.4-3.5); Glucose 73 mg/dL (80-115); Potassium 4.8 mmol/L (3.5-5.1); Protein, Total 7.4 g/dL (5.8-8.1); Sodium 140 mmol/L (136-145)
== END 2023-06-14 18:19 ==
LOC: ERS 15:47
DX: M54.50 Low back pain, unspecified (principal); I10 Essential (primary) hypertension; Z53.21 Procedure and treatment not carried out due to patient leaving prior to being seen by health care provider
CPT/HCPCS: 80053; 83605; 85025; 96374; J1885

== ENCOUNTER 2023-06-16 08:48 | Emergency (ER) | payer BC ==
[2023-06-16 10:05] LABS: #Eosinphils 0.2 thou/uL (0.0-0.7); #Neutrophils 5.1 thou/uL (1.40-6.50); %Basophils 0.4 % (0.0-1.0); %Eosinophils 1.9 % (0.0-10.0); %Lymphocytes 20.8 % (21.0-51.0); %Monocytes 12.6 % (0.0-10.0); %Neutrophils 64.2 % (42.0-75.0); Hematocrit 39.9 % (36.0-47.0); Hemoglobin 13.5 g/dL (12.0-16.0); Mean Corpuscular HGB CONC 33.8 g/dL (32.0-36.0); Mean Corpuscular Hemoglobin 32.2 pg (27.0-31.0); Mean Corpuscular Volume 95.2 fl (78.0-98.0); Mean Platelet Volume 9.9 fL (7.4-10.4); Platelet Count 262 10x3/uL (130-400); RBC Distribution Width 12.4 % (11.5-14.5); Red Blood Cell (RBC) Count 4.19 mill/uL (4.20-5.40); White Blood Cell (WBC) Count 7.9 10x3/uL (4.8-10.8)
[2023-06-16 10:11] LABS: Bacteria/HPF None Seen HPF (None Seen); Bilirubin 1+ (Negative); Blood, Urine Negative (Negative); CAUTI Indications for Culture Fever or rigors; Clarity Clear (Clear); Glucose, Urine (Dipstick) Normal (Negative); Ketone, Urine Trace mg/dL (Negative); Leukocyte Negative Leu/uL (Negative); Nitrite Negative (Negative); Protein, Urine (Dipstick) 20 mg/dL (Neg-Trace); RBC/HPF 0-3 HPF (0-3); Specific Gravity, Urine 1.038 (1.002-1.036); Squamous Epithelial 0-3 HPF (0-3); Urobilinogen Normal mg/dL (Less than 2); WBC/HPF 0-3 HPF (0-3); pH, Urine 5.5 (5.0-9.0)
[2023-06-16 10:13] LABS: Urine Culture Reflex No No
[2023-06-16 10:29] LABS: ALT (SGPT) 11 U/L (8-55); AST (SGOT) 24 U/L (5-34); Albumin 4.8 g/dL (3.4-4.8); Alkaline Phosphatase 88 U/L (40-110); Anion Gap 16 mmol/L (10-20); BUN (Urea Nitrogen) 23 mg/dL (9.8-20.1); Bilirubin, Total 0.8 mg/dL (0.2-1.2); Calc. Creatinine Clearance 0 mL/min (70-130); Calcium 10.1 mg/dL (7.8-10.44); Carbon Dioxide 21 mmol/L (23-31); Chloride 106 mmol/L (98-107); Estimated GFR 47; Globulin 2.8 g/dL (2.4-3.5); Glucose 101 mg/dL (80-115); Lipase 34 U/L (8-78); Potassium 4.1 mmol/L (3.5-5.1); Protein, Total 7.6 g/dL (5.8-8.1)
[2023-06-16 11:06] LABS: Sodium 139 mmol/L (136-145)
== END 2023-06-16 12:30 | disposition home or self-care (01) ==
LOC: ERS 08:48
DX: K59.00 Constipation, unspecified (principal); I10 Essential (primary) hypertension; Z86.73 Personal history of transient ischemic attack (TIA), and cerebral infarction without residual deficits
CPT/HCPCS: 74177; 80053; 81001; 83690; 85025

== ENCOUNTER 2023-11-01 07:56 | Inpatient (IN) | payer BC ==
[2023-11-01] MEDS ORDERED: Ketorolac Tromethamine 30 MG (1 mL) VIAL ONE (08:11)
[2023-11-01] MEDS ORDERED: NOREPINEPHRINE 8 MG/250 ML-D5W 250 ML ONE (09:01)
[2023-11-01] MEDS ORDERED: Morphine 2 MG/ML VIAL ONE ×2 (09:21→10:51)
[2023-11-01 09:27] LABS: #Basophils Less than 0.03 10x3/uL (0.0-0.2); %Basophils 0.5 % (0.0-1.0); %Lymphocytes 22.5 % (21.0-51.0); %Monocytes 18.3 % (0.0-10.0); %Neutrophils 57.5 % (42.0-75.0); Hematocrit 29.1 % (36.0-47.0); Hemoglobin 9.4 g/dL (12.0-16.0); Mean Corpuscular HGB CONC 32.3 g/dL (32.0-36.0); Mean Corpuscular Hemoglobin 32.1 pg (27.0-31.0); Mean Corpuscular Volume 99.3 fL (78.0-98.0); Mean Platelet Volume 9.7 fL (7.4-10.4); Platelet Count 186 10x3/uL (130-400); RBC Distribution Width 12.8 % (11.5-14.5); Red Blood Cell (RBC) Count 2.93 mill/uL (4.20-5.40)
[2023-11-01 09:47] LABS: Lactic Acid 1.4 mmol/L (0.5-2.2)
[2023-11-01 09:52] LABS: ALT (SGPT) 22 U/L (8-55); AST (SGOT) 48 U/L (5-34); Albumin 2.7 g/dL (3.4-4.8); Alkaline Phosphatase 87 U/L (40-110); Anion Gap 7 mmol/L (10-20); BUN (Urea Nitrogen) 19 mg/dL (9.8-20.1); Bilirubin, Total 0.2 mg/dL (0.2-1.2); Calc. Creatinine Clearance 0 mL/min (70-130); Calcium 7.2 mg/dL (7.8-10.44); Carbon Dioxide 21 mmol/L (23-31); Chloride 113 mmol/L (98-107); Estimated GFR 62; Globulin 1.7 g/dL (2.4-3.5); Glucose 91 mg/dL (80-115); Potassium 4.1 mmol/L (3.5-5.1); Protein, Total 4.4 g/dL (5.8-8.1); Sodium 137 mmol/L (136-145); Troponin I Less than 0.010 ng/mL (< 0.028)
[2023-11-01] MEDS ORDERED: Senokot S 8.6-50 MG TAB PO PRN (14:15)
[2023-11-01] MEDS ORDERED: Ondansetron ODT 4 MG TAB PO PRN ×2 (14:15→16:15)
[2023-11-01] MEDS ORDERED: Ondansetron PF 4 MG/2 ML Vial IVP PRN (14:15)
[2023-11-01] MEDS ORDERED: Bisacodyl 10 MG SUPP PR PRN (14:15)
[2023-11-01] MEDS ORDERED: Bisacodyl 5 MG TAB PO PRN (14:15)
[2023-11-01] MEDS ORDERED: Ondansetron PF 4 MG/2 ML Vial SLOW IVP PRN (16:15)
[2023-11-01] MEDS: Midodrine HCl 5 MG TAB PO SCH ×2 (16:26→20:37)
[2023-11-01] MEDS: HYDROcodone/Acetaminophen 5/325 mg Tablet PO PRN ×2 (16:26→21:30)
[2023-11-01] MEDS: rOPINIRole HCl 0.25 MG TAB PO SCH (16:27)
[2023-11-01] MEDS ORDERED: NOREPINEPHRINE 8 MG/250 ML-D5W 250 ML IVPB SCH (17:45)
[2023-11-01] MEDS: Lactated Ringer's 1,000 ML IV SCH (18:04)
[2023-11-01] MEDS: Hydrocortisone Sod Succ/PF 100 mg/2 ml Vial IVP SCH (20:35)
[2023-11-01] MEDS: Famotidine 20 MG TAB PO SCH (20:35)
[2023-11-01] MEDS: Famotidine/PF 20 mg/2ml Vial SLOW IVP SCH (20:36)
[2023-11-01] MEDS: Gabapentin 400 MG CAP PO SCH (20:36)
[2023-11-01] MEDS: Melatonin 3 MG TAB PO SCH (20:37)
[2023-11-01] MEDS: traZODone HCl 150 MG TAB PO PRN (20:40)
[2023-11-01] MEDS ORDERED: Baclofen 10 MG TAB PO SCH (21:00)
[2023-11-02 05:01] LABS: #Basophils Less than 0.03 10x3/uL (0.0-0.2); #Eosinphils Less than 0.03 10x3/uL (0.0-0.7); %Basophils 0.3 % (0.0-1.0); %Eosinophils 0.3 % (0.0-10.0); %Lymphocytes 25.3 % (21.0-51.0); %Monocytes 11.9 % (0.0-10.0); %Neutrophils 61.9 % (42.0-75.0); Hematocrit 28.3 % (36.0-47.0); Hemoglobin 9.5 g/dL (12.0-16.0); Mean Corpuscular HGB CONC 33.6 g/dL (32.0-36.0); Mean Corpuscular Hemoglobin 31.5 pg (27.0-31.0); Mean Corpuscular Volume 93.7 fL (78.0-98.0); Mean Platelet Volume 9.9 fL (7.4-10.4); Platelet Count 192 10x3/uL (130-400); RBC Distribution Width 12.7 % (11.5-14.5); Red Blood Cell (RBC) Count 3.02 mill/uL (4.20-5.40)
[2023-11-02 05:24] LABS: ALT (SGPT) 40 U/L (8-55); AST (SGOT) 56 U/L (5-34); Albumin 2.6 g/dL (3.4-4.8); Alkaline Phosphatase 122 U/L (40-110); Anion Gap 7 mmol/L (10-20); BUN (Urea Nitrogen) 15 mg/dL (9.8-20.1); Bilirubin, Total 0.1 mg/dL (0.2-1.2); Calc. Creatinine Clearance 53 mL/min (70-130); Carbon Dioxide 21 mmol/L (23-31); Chloride 114 mmol/L (98-107); Estimated GFR 75; Glucose 133 mg/dL (80-115); Potassium 4.2 mmol/L (3.5-5.1); Protein, Total 4.6 g/dL (5.8-8.1); Sodium 138 mmol/L (136-145)
[2023-11-02 06:29] VITALS: BMI 23.6
[2023-11-02 09:45] LABS: Actual Bicarbonate (HCO3v) 22.5 mEq/L (22-28); Base Excess -3.7 mEq/L (-2.0 to +3.0); Calcium, Ionized (venous) 1.16 mmol/L (1.16-1.32); Chloride (VBG) 107 mmol/L (98-106); Hematocrit-VBG 29 % (36.0-47.0); Hemoglobin (Hb) 9.9 g/dL (11.7-16.0); Potassium (VBG) 4.04 mmol/L (3.70-5.30); Sodium 140 mmol/L (133-146); pH (venous) 7.307 (7.32-7.43)
[2023-11-02] MEDS: Fludrocortisone Acetate 0.1 MG TAB PO SCH (09:53)
[2023-11-02 10:57] VITALS: BMI 23.6
[2023-11-02] MEDS: rOPINIRole HCl 0.25 MG TAB PO SCH (21:36)
[2023-11-02] MEDS: Atorvastatin Calcium 40 MG TAB PO SCH (21:36)
[2023-11-02] MEDS: rOPINIRole HCl 1 MG TAB PO SCH (21:36)
[2023-11-02] MEDS: Gabapentin 400 MG CAP PO SCH (21:37)
[2023-11-03] MEDS: diphenhydrAMINE 25 MG CAP PO SCH (00:14)
[2023-11-03 07:09] LABS: #Basophils Less than 0.03 10x3/uL (0.0-0.2); %Basophils 0.2 % (0.0-1.0); %Eosinophils 3.9 % (0.0-10.0); %Lymphocytes 35.4 % (21.0-51.0); %Monocytes 12.1 % (0.0-10.0); %Neutrophils 48.2 % (42.0-75.0); Hematocrit 29.9 % (36.0-47.0); Hemoglobin 9.8 g/dL (12.0-16.0); Mean Corpuscular HGB CONC 32.8 g/dL (32.0-36.0); Mean Corpuscular Hemoglobin 31.8 pg (27.0-31.0); Mean Corpuscular Volume 97.1 fL (78.0-98.0); Mean Platelet Volume 9.4 fL (7.4-10.4); Platelet Count 177 10x3/uL (130-400); RBC Distribution Width 13.1 % (11.5-14.5); Red Blood Cell (RBC) Count 3.08 mill/uL (4.20-5.40)
[2023-11-03 07:32] LABS: Anion Gap 5 mmol/L (10-20); BUN (Urea Nitrogen) 10 mg/dL (9.8-20.1); Calc. Creatinine Clearance 71 mL/min (70-130); Calcium 7.7 mg/dL (7.8-10.44); Carbon Dioxide 22 mmol/L (23-31); Chloride 114 mmol/L (98-107); Estimated GFR 97; Glucose 88 mg/dL (80-115); Potassium 3.1 mmol/L (3.5-5.1); Sodium 138 mmol/L (136-145)
[2023-11-03] MEDS: Fludrocortisone Acetate 0.1 MG TAB PO SCH (08:08)
[2023-11-03] MEDS: Acetaminophen 325 MG TAB PO PRN (08:10)
[2023-11-03] MEDS: Potassium Chloride 20 MEQ TAB PO SCH (09:17)
[2023-11-03] MEDS: traZODone HCl 150 MG TAB PO PRN (21:32)
[2023-11-04] MEDS: Vicks VapoRub 50 gm Jar TOP PRN (00:26)
[2023-11-04 06:54] LABS: #Basophils Less than 0.03 10x3/uL (0.0-0.2); %Basophils 0.2 % (0.0-1.0); %Eosinophils 3.5 % (0.0-10.0); %Lymphocytes 37.4 % (21.0-51.0); %Monocytes 14.7 % (0.0-10.0); Hematocrit 29.2 % (36.0-47.0); Hemoglobin 9.5 g/dL (12.0-16.0); Mean Corpuscular HGB CONC 32.5 g/dL (32.0-36.0); Mean Corpuscular Hemoglobin 30.5 pg (27.0-31.0); Mean Corpuscular Volume 93.9 fL (78.0-98.0); Mean Platelet Volume 9.6 fL (7.4-10.4); Platelet Count 185 10x3/uL (130-400); Red Blood Cell (RBC) Count 3.11 mill/uL (4.20-5.40)
[2023-11-04 07:18] LABS: Anion Gap 12 mmol/L (10-20); BUN (Urea Nitrogen) 6 mg/dL (9.8-20.1); Calc. Creatinine Clearance 62 mL/min (70-130); Carbon Dioxide 22 mmol/L (23-31); Chloride 113 mmol/L (98-107); Estimated GFR 84; Glucose 99 mg/dL (80-115); Potassium 3.2 mmol/L (3.5-5.1); Sodium 144 mmol/L (136-145)
[2023-11-04 11:45] VITALS: BP 125/74; TEMP 99.4
[2023-11-04 14:59] LABS: SARS-CoV-2 N1 Negative; SARS-CoV-2 N2 Negative; SARS-CoV-2 RNAse P1 Positive; SARS-CoV-2 RNAse P2 Positive
== END 2023-11-04 14:55 | disposition home or self-care (01) | DRG 562 ==
LOC: ERS 07:56 → CCU 14:22 → T4-B 11-02 12:19
PROVIDERS: ADMIT Internal Medicine; ATTEND Internal Medicine
DX: S92.322A Displaced fracture of second metatarsal bone, left foot, initial encounter for closed fracture (principal); R57.8 Other shock; S92.332A Displaced fracture of third metatarsal bone, left foot, initial encounter for closed fracture; S92.342A Displaced fracture of fourth metatarsal bone, left foot, initial encounter for closed fracture; G25.81 Restless legs syndrome; G47.33 Obstructive sleep apnea (adult) (pediatric); I10 Essential (primary) hypertension; M41.9 Scoliosis, unspecified; D64.9 Anemia, unspecified; G47.00 Insomnia, unspecified; F41.9 Anxiety disorder, unspecified; E87.6 Hypokalemia; G89.29 Other chronic pain; M54.9 Dorsalgia, unspecified; K59.00 Constipation, unspecified; R33.9 Retention of urine, unspecified; G90.1 Familial dysautonomia [Riley-Day]; F32.A Depression, unspecified; W18.09XA Striking against other object with subsequent fall, initial encounter; Y93.89 Activity, other specified; Y92.098 Other place in other non-institutional residence as the place of occurrence of the external cause; Z79.899 Other long term (current) drug therapy; Z86.73 Personal history of transient ischemic attack (TIA), and cerebral infarction without residual deficits; Z90.710 Acquired absence of both cervix and uterus
CPT/HCPCS: 29515; 36415; 71045; 80048; 80053; 82274; 82533; 82805; 83605; 84145; 84443; 84484; 85025; 86141; 87635; 93005; 96374; 96375; 96376; J1720; J1885; J2272; J7120

== ENCOUNTER 2024-05-01 07:10 | Emergency (ER) | payer BC ==
[2024-05-01] MEDS ORDERED: Lidocaine 4% Patch ONE (07:55)
[2024-05-01] MEDS ORDERED: Ketorolac Tromethamine 30 MG (1 mL) VIAL ONE (07:55)
== END 2024-05-01 08:35 | disposition home or self-care (01) ==
LOC: ERS 07:10
DX: M54.42 Lumbago with sciatica, left side (principal); M54.41 Lumbago with sciatica, right side; M62.830 Muscle spasm of back; I10 Essential (primary) hypertension; Z79.899 Other long term (current) drug therapy
CPT/HCPCS: 96372; 99283; J1885